=== PATIENT | female | born 2000 | race Caucasian/White ===

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

== ENCOUNTER 2024-07-21 21:25 | Emergency (ER) | payer MEDICAID, SELFPAY ==
[2024-07-21 21:25] VITALS: BP 136/94; PULSE 116; RESP 20; TEMP 36.2; O2SAT 100; BMI 21.8
[2024-07-21 21:47] LABS: Absolute Lymphocyte Count 2.74 X10^3/uL (0.83-4.51); Absolute Neutrophil Count 6.8 X10^3/uL (2.0-7.7); Basophil# 0.06 X10^3/uL; Basophil% 0.6 % (0-1); Eosinophil# 0.12 X10^3/uL; Eosinophils% 1.2 % (0-5); Hematocrit 39.8 % (37-47); Hemoglobin 13.4 g/dL (12.0-15.0); Lymphocyte # 2.74 X10^3/ul (0.83-4.51); Lymphocyte % 26.7 % (19-41); Mean Corp Hgb Conc 33.7 g/dL (32-36); Mean Corpuscular Hgb 30.2 pg (27.0-32.0); Mean Corpuscular Volume 89.6 fL (81-99); Mean Platelet Vol. 8.9 fl (6.2-12.0); Monocyte# 0.51 X10^3/uL; NRBC Flagged by Analyzer 0 % (0-5); Neutrophil # 6.78 X10^3/uL (2.7-7.7); Platelet Count 425 K/mm3 (150-450); RBC Distribution Width CV 11.9 % (11.6-14.6); RBC Distribution Width SD 39.1 fl (35.1-43.9); Red Blood Count 4.44 M/mm3 (4.2-5.4); White Blood Count 10.3 K/mm3 (4.4-11.0)
[2024-07-21 22:00] LABS: Anion Gap 9 (5-15); BUN 6 mg/dL (7-18); BUN/Creat Ratio 9.4 RATIO (10-20); Calcium,Total 9.2 mg/dL (8.5-10.1); Chloride 106 mmol/L (98-107); Creatinine, Serum 0.64 mg/dL (0.55-1.02); EST Glomerular Filtration Rate 124 mL/min (>60); Est Glom Filt Rate - Afr Amer 150 mL/min (>60); Estimated Creatinine Clearance 109.97 ml/min; Glucose 101 mg/dL (74-106); Potassium 3.7 mmol/L (3.5-5.1); Sodium Level 137 mmol/L (136-145)
--- NOTE | 2024-07-21 22:45 | EDS_ITS ---
HPI History of Present Illness Chief Complaint: Dizziness Informant: patient and parent Narrative Narrative: Patient is a 23-year-old female with past medical history of anxiety depression and asthma. She states she started Lexapro today and after taking it began to feel lightheaded and shaky and developed bouts of nausea. She states this is the only new medication introduced into her system and that she denies any type of recently stopped medication to suggest withdrawal. She states that she is waited hours for the symptoms to resolve and they have not done so and therefore she comes to the hospital for evaluation. She states that despite the nausea t here is been no bouts of vomiting and she denies any history of significant bleeding or illicit drug use [facility] Medical History Depression Anxiety Asthma Home Medications ?Medication ?Instructions ?Recorded ?Last Taken ?Type fluticasone propionate 44 2 puff inhalation PRN PRN Sob &/Or 07/01/15 Unknown History mcg/actuation HFA aerosol inhaler Wheezing (Flovent HFA) amoxicillin 500 mg capsule 500 mg PO TID 10 days #30 caps 11/19/21 Unknown Rx fluticasone propionate 50 1 spray intranasal DAILY #16 grams 11/19/21 Unknown Rx mcg/actuation nasal spray,suspension (Flonase Allergy Relief) escitalopram oxalate 10 mg tablet 10 mg PO DAILY 07/21/24 Unknown History ondansetron 4 mg disintegrating 4 mg PO TID PRN nausea and 07/21/24 Unknown Rx tablet vomiting #21 tabs Allergy/AdvReac Type Severity Reaction Status Date / Time No Known Allergies Allergy Verified 07/21/24 21:25 Surgical History History of tonsillectomy and adenoidectomy Social History Smoking Status: Never smoker ROS ROS ED Constitutional Constitutional ED: Denies chills or fever(s) Eyes Eyes: Denies blurry vision or change in vision ENT ENT ED: Denies sore throat Cardiovascular Cardiovascular: Reports palpitations and racing heartbeat; Denies chest pain Respiratory/Chest Respiratory/Chest: Denies cough or dyspnea Gastrointestinal Gastrointestinal: Reports nausea; Denies abdominal pain, diarrhea or vomiting Genitourinary Genitourinary ED: Denies dysuria Musculoskeletal Musculoskeletal: Denies myalgias Integumentary Denies rash Neurologic Neurologic: Reports other Details: Positive dizziness ; Denies headache(s) Psychiatric Psychiatric: Reports anxiety and depression; Denies suicidal ideation or suicidal thoughts Hematologic/Lymphatic Hematologic/Lymphatic: Denies easy bleeding or easy bruising EXAM Physical Exam Const Vital Signs: 07/21/24 21:25 07/21/24 22:59 07/21/24 23:00 Temperature 97.2 F L 97.8 F Temperature Source Temporal Pulse Rate 116 H 89 Respiratory Rate 20 H 16 Blood Pressure 136/94 H 124/79 H Blood Pressure Mean 108 94 Pulse Ox 100 98 98 Oxygen Delivery Method Room Air Room Air Positive well nourished and well developed General Appearance ED: well developed; Negative for pallor HEENT Reports moist mucous membranes HEENT Narrative: Normocephalic atraumatic No signs of infection noted in the posterior pharynx Eyes EOMs intact bilaterally Eyes Narrative: Pupils are dilated and slightly sluggish to respond to light Neck supple Neck Narrative: No nuchal rigidity or meningeal signs Resp normal respiratory effort and clear to auscultation bilaterally Cardio regular rhythm Rate: tachycardic and other Other Details: Slightly tachycardic rate with regular rhythm No murmurs rubs or gallop Radial and carotid pulses are equal and symmetric GI normal to inspection, nondistended, normoactive bowel sounds, non-tender, non- distended and no masses Auscultation: normoactive bowel sounds Palpation: soft Extremity normal to inspection Extremity Narrative: No asymmetric edema no pitting edema negative Homans' sign bilaterally Neuro oriented x3, CN's II-XII intact bilaterally and no sensory deficits noted Neuro Narrative: Cranial nerves II through XII are grossly intact there are no focal neurologic deficits No pronator drift no dysmetria no truncal ataxia No nystagmus noted GCS of 15 NIH stroke scale score of 0 Sensorium / Orientation: alert Motor Exam: strength 5/5 throughout Psych mental status grossly normal Skin no rashes or lesions noted, no wounds and skin turgor normal General Skin Exam: Negative for jaundice or pallor MDM MDM MDM Narrative Medical decision making narrative: Patient arrived to the ER mildly tachycardic and hypertensive but otherwise with stable vitals. She reported taking a new medication of Lexapro today. In order to ensure that her lightheadedness and symptoms are related to adverse medication effect I did elect to perform basic laboratory studies to ensure she did not have acute blood loss anemia acute kidney injury or electrolyte abnormality. Lab work revealed no clinically significant findings and patient was kept on the monitor and her heart rate was normal sinus to sinus tachycardia without true cardiac dysrhythmia. Therefore at this time as she does not have a neurologic event signs of acute blood loss anemia or acute kidney injury and the symptoms she reports are commonly reported with Lexapro I feel they are adverse medication event and she can be discharged home while the drug metabolizes out of her system History & Record Review Discussion w/independent historian: Patient and Family Lab Data Attestation: I reviewed the patient's lab results. Labs: Laboratory Results - last 24 hr 07/21/24 21:40 WBC 10.3 RBC 4.44 Hgb 13.4 Hct 39.8 MCV 89.6 MCH 30.2 MCHC 33.7 RDW Std Deviation 39.1 RDW Coeff of Yoandy 11.9 Plt Count 425 MPV 8.9 Immature Gran % (Auto) 0.500 Neut % (Auto) 66.0 Lymph % (Auto) 26.7 [place] % (Auto) 5.0 Eos % (Auto) 1.2 Baso % (Auto) 0.6 Absolute Neuts (auto) 6.8 Absolute Lymphs (auto) 2.74 Nucleated RBC % 0 Sodium 137 Potassium 3.7 Chloride 106 Carbon Dioxide 22.0 Anion Gap 9 BUN 6 L Creatinine 0.64 Estim Creat Clear Calc 109.97 Est GFR (MDRD) Af Amer 150 Est GFR (MDRD) Non-Af 124 BUN/Creatinine Ratio 9.4 L Glucose 101 Calcium 9.2 Discharge Plan Triage Chief Complaint: Dizziness ED Provider: Tobi Haney Dx/Rx/DC Orders Clinical Impression: Adverse effects of medication, Asthma, Anxiety and depression Instructions: ED Drug Reaction, Other Prescriptions: New ondansetron 4 mg tablet,disintegrating 4 mg PO TID PRN (Reason: nausea and vomiting) Qty: 21 0RF No Action fluticasone propionate [Flovent HFA] 1 INHALER inhaler 2 puff inhalation PRN PRN (Reason: Sob &/Or Wheezing) Patient Comments: amoxicillin 500 mg capsule 500 mg PO TID 10 Days Qty: 30 0RF fluticasone propionate [Flonase Allergy Relief] 50 mcg/actuation spray,suspension 1 spray intranasal DAILY Qty: 16 0RF Rx Instructions: administer into each nostril escitalopram oxalate 10 mg tablet 10 mg PO DAILY Primary Care Provider: Gurjit Vega Referrals: Gurjit Vega MD [Primary Care Provider] - Activity Restrictions/Additional Instructions: Please stop the Lexapro as this is most likely the cause of your dizziness and nausea. It will take on average 2 to 3 days for this drug to metabolize out of your system. Keep yourself well-hydrated and talk to your family doctor about changing medication and return to the ER should you have any further concerns. Print Language: [place] Disposition Disposition: Home, Self Care Discharge Date/Time: 07/21/24 23:08
--- OUTSIDE RECORDS SUMMARY | 2024-07-21 22:47 | XMS RPT_ITS | CCD ---
Author Organization [facility] Inform ion Partnership [employer] [facility] Care Team Providers Care Referral Coordinator Name Role Phone Gurjit Boyer MD Primary Care Provider [phone] Daily Garsia MD Primary Care Provider Podlogar SQUIRT MACHINE OPERATOR.Randal BOSTON Unavailable [phone] LORETTALOGRANDAL COCHRAN Referring Unavailable DAILY GARSIA Primary Care Unavailab le LORETTALOGRANDAL COCHRAN Attending Unavailable GURJIT BOYER Primary Care Unavailable Allergies Allergy Classification Reported Allergen(s) Allergy Type Date of Onset Reaction(s) Facility (9 sources) Cat; Translations: [CATS] Propensity to adverse reactions 0 [facility] (9 sources) Dog; Translations: [DOGS] Allergy to substance 5 Other: See Comments [facility] Work Phone: (9 sources) Seasonal allergy; Translations: [SEASONAL ALLERGIES] Allergy to substance 4 Other: See Comments [facility] Work Phone: Medications Current Medications Medication Drug Class(es) Dates Sig (Normalized) Sig (Original) albuterol 0.83 mg/ml inhalation solution (18 sources) beta2-Adrenergic Agonist Start: 12-04-2019 End: 07-20-2024 take 2 puff(s) by inhalation every four hours as needed ProAir RespiClick 90 mcg/actuation breath activated (albuterol sulfate) Indications: Mild intermittent asthma with acute exacerbation Inhale 2 Puffs as instructed every 4 hours as needed. 1 Each 2 07/20/2024 Active Start: 08-14-2019 End: 07-20-2024 albuterol (PROVENTIL) 2.5 mg /3 mL (0.083 %) nebulizer solution Indications: Mild intermittent asthma with acute exacerbation Use 3 mL via nebulizer every 4 hours as needed. OVER 5-15 MINUTES. FOR WHEEZING AND SHORTNESS OF BREATH. 540 mL 07/20/2024 Active Comment on above: Use 3 mL via nebuliz er every 4 hours as needed. OVER 5-15 MINUTES. FOR WHEEZING AND SHORTNESS OF BREATH. Inhale 2 Puffs as in structed every 4 hours as needed. escitalopram 10 mg oral tablet (1 source) Serotonin Reuptake Inhibitor Start: 07-20-20 24 take 1 tablet by mouth once daily escitalopram oxalate (LEXAPRO) 10 mg tablet Indications: Anxiety and depression Take 1 tablet by mouth once daily. 30 tablet 1 07/20/2024 Active 120 actuat fluticasone propionate 0.11 mg/actuat metered dose inhaler (8 sources) Corticosteroid Start: 07-19-20 20 fluticasone (FLOVENT HFA) 110 mcg/actuation inhaler Inhale 1 puff twice daily. Via spacer then rinse and gargle with water. 1 Inhaler 3 07/19/2020 Active Comment on above: Inhale 1 puff twice daily. Via spacer then rinse and gargle with water. Completed/Discontinued Medications Medication Drug Class(es) Dates Sig (Normalized) Sig (Original) coal tar 5 mg/ml medicated shampoo (4 sources) Start: 9 End: 2 coal tar (NEUTROGENA T-GEL) 0.5 % shampoo Apply 1 application to affected area as needed (for flaky scalp). 237 mL 1 02/27/2019 04/11/2022 Discontinued (Course of therapy completed) Comment on above: Apply 1 application to affected area as needed (for flaky scalp). 1 ml medroxyPROGESTERone acetate 150 mg/ml prefilled syringe (1 source) Progestin Start: 1 End: 2 medroxyPROGESTERone 150 mg injection (DEPO-PROVERA) Problems Active Problems Problem Classification Problem Date Documented Da te Episodic/Chronic Abdominal pain (1 source) Abdominal pain; Translations: [Unspecified abdominal pain] Episodic Anxiety disorders (2 sources) Mixed anxiety and depressive disorder; Translations: [Anxiety disorder, unspecified] Onset: 07-20-2024 07-20-2024 Chronic Asthma (9 sources) Asthma; Translations: [Unspecified asthma, uncomplicated] Onset: 11-17-2011 11-17-2011 Chronic Conditions associated with dizziness or vertigo (1 source) Dizziness; Translations: [Dizziness and giddiness] Episodic Immunizations and screening for infectious disease (4 sources) Viral screening status; Translations: [Encounter for screening for other viral diseases] Onset: 07-20-2024 07-20-2024 Episodic Mood disorders (1 source) Mood disorders; Translations: [Anxiety and depression] Onset: 07-20-2024 Other connective tissue disease (1 source) Pain in right foot; Translations: [Pain in right foot] 08-25-2021 Episodic Other gastrointestinal disorders (2 sources) Alteration in bowel elimination; Translations: [Change in bowel habit] Episodic Other gastrointestinal disorders (1 source) Altered bowel function; Translations: [Change in bowel habit] 04-11-2022 Episodic Other non-traumatic joint disorders (1 source) Joint pain; Translations: [Pain in unspecified joint] 07-20-2024 Episodic Other non-traumatic joint disorders (1 source) Pain in unspecified joint; Translations: [Arthralgia, unspecified joint] Onset: 07-20-2024 Episodic Screening and history of mental health and substance abuse codes (2 sources) Patient encounter status; Translations: [Encounter for screening examination for other mental health and behavioral disorders] 07-20-2024 Episodic Viral infection (1 source) Viral disease; Translations: [Viral infection, unspecified] Episodic Past or Other Problems Problem Classification Problem Date Documented Date Episodic/Chronic Allergic reactions (3 sources) Eczema; Translations: [Dermatitis, unspecified] Resolved: 02-28-2018 02-28-2018 Episodic Lymphadenitis (3 sources) Mesenteric lymphadenitis; Translations: [Nonspecific mesenteric lymphadenitis] Onset: 10-02-2011 Resolved: 11-18-2014 11-18-2014 Episodic Other non-traumatic joint disorders (3 sources) Instability of right patellofemoral joint; Translations: [Other instability, right knee] Onset: 06-08-2016 Resolved: 02-28-2018 02-28-2018 Episodic Results Test Name Value Interpretation Reference Range Facil ity CBC W Auto Differential pane l (Bld)on 07-20-2024 Basophils (Bld) [#/Vol] 0.04 10*3/uL Normal <0.11 [facility] Comment on above: Order Comment: Speci men Type: BLOOD SPECIMEN Ordering Facility: [facility] Address: [address] [place] [address] Performed By: #### 5 7021-8, 4537-7 #### [facility] CLIA [id number] [address] [place] [address] [place] Basophils/100 WBC (Bld) 0.4 % Normal [facility] Comment on above: Order Comment: Speci men Type: BLOOD SPECIMEN Ordering Facility: [facility] Address: [address] [place] [address] Performed By: #### 5 7021-8, 4537-7 #### [facility] CLIA [id number] [address] [place] [address] [place] Differential cell count method Nom (Bld) Auto Normal [facility] Comment on above: Order Comment: Speci men Type: BLOOD SPECIMEN Ordering Facility: [facility] Address: [address] [place] [address] Performed By: #### 5 7021-8, 4537-7 #### [facility] CLIA [id number] [address] [place] [address] [place] Eosinophils (Bld) [#/Vol] 0.17 10*3/uL Normal <0.46 [facility] Comment on above: Order Comment: Speci men Type: BLOOD SPECIMEN Ordering Facility: [facility] Address: [address] [place] [address] Performed By: #### 5 7021-8, 4537-7 #### [facility] CLIA [id number] [address] [place] [address] [place] Eosinophils/100 WBC (Bld) 1.6 % Normal [facility] Comment on above: Order Comment: Speci men Type: BLOOD SPECIMEN Ordering Facility: [facility] Address: [address] [place] [address] Performed By: #### 5 7021-8, 4537-7 #### [facility] CLIA [id number] [address] [place] [address] [place] Erythrocyte distribution width (RBC) [Ratio] 12.3 % Normal 11.5-15.0 [facility] Comment on above: Order Comment: Speci men Type: BLOOD SPECIMEN Ordering Facility: [facility] Address: [address] [place] [address] Performed By: #### 5 7021-8, 4537-7 #### [facility] CLIA [id number] [address] [place] [address] [place] Hematocrit (Bld) [Volume fraction] 40.8 % Normal 36.0-46.0 [facility] Comment on above: Order Comment: Speci men Type: BLOOD SPECIMEN Ordering Facility: [facility] Address: [address] [place] [address] Performed By: #### 5 7021-8, 4537-7 #### [facility] CLIA [id number] [address] [place] [address] [place] Hemoglobin (Bld) [Mass/Vol] 13.1 g/dL Normal 11.5-15.5 [facility] Comment on above: Order Comment: Speci men Type: BLOOD SPECIMEN Ordering Facility: [facility] Address: [address] [place] [address] Performed By: #### 5 7021-8, 4537-7 #### [facility] CLIA [id number] [address] [place] [address] [place] Immature granulocytes (Bld) [#/Vol] 0.05 10*3/uL Normal <0.10 [facility] Comment on above: Order Comment: Speci men Type: BLOOD SPECIMEN Ordering Facility: [facility] Address: [address] [place] [address] Performed By: #### 5 7021-8, 4537-7 #### [facility] CLIA [id number] [address] [place] [address] [place] Immature granulocytes/100 WBC (Bld) 0.5 % Normal [facility] Comment on above: Order Comment: Speci men Type: BLOOD SPECIMEN Ordering Facility: [facility] Address: [address] [place] [address] Performed By: #### 5 7021-8, 4536-7 #### [facility] CLIA [id number] [address] [place] [address] [place] Lymphocytes (Bld) [#/Vol] 2.17 10*3/uL Normal 1.00-4.00 [facility] Comment on above: Order Comment: Speci men Type: BLOOD SPECIMEN Ordering Facility: [facility] Address: [address] [place] [address] Performed By: #### 5 7021-8, 4536-7 #### [facility] CLIA [id number] [address] [place] [address] [place] Lymphocytes/100 WBC (Bld) 20.6 % Normal [facility] Comment on above: Order Comment: Speci men Type: BLOOD SPECIMEN Ordering Facility: [facility] Address: [address] [place] [address] Performed By: #### 5 7021-8, 7-7 #### [facility] CLIA [id number] [address] [place] [address] [place] MCH (RBC) [Entitic mass] 30.1 pg Normal 26.0-34.0 [facility] Comment on above: Order Comment: Speci men Type: BLOOD SPECIMEN Ordering Facility: [facility] Address: [address] [place] [address] Performed By: #### 5 7021-8, 4537-7 #### [facility] CLIA [id number] [address] [place] [address] [place] MCHC (RBC) [Mass/Vol] 32.1 g/dL Normal 30.5-36.0 [facility] Comment on above: Order Comment: Speci men Type: BLOOD SPECIMEN Ordering Facility: [facility] Address: [address] [place] [address] Performed By: #### 5 7021-8, 4537-7 #### [facility] CLIA [id number] [address] [place] [address] [place] MCV (RBC) [Entitic vol] 93.8 fL Normal 80.0-100.0 [facility] Comment on above: Order Comment: Speci men Type: BLOOD SPECIMEN Ordering Facility: [facility] Address: [address] [place] [address] Performed By: #### 5 7021-8, 4537-7 #### [facility] CLIA [id number] [address] [place] [address] [place] Monocytes (Bld) [#/Vol] 0.71 10*3/uL Normal <0.87 [facility] Comment on above: Order Comment: Speci men Type: BLOOD SPECIMEN Ordering Facility: [facility] Address: [address] [place] [address] Performed By: #### 5 7021-8, 4536-7 #### [facility] CLIA [id number] [address] [place] [address] [place] Monocytes/100 WBC (Bld) 6.7 % Normal [facility] Comment on above: Order Comment: Speci men Type: BLOOD SPECIMEN Ordering Facility: [facility] Address: [address] [place] [address] Performed By: #### 5 7021-8, 4537-7 #### [facility] CLIA [id number] [address] [place] [address] [place] Neutrophils (Bld) [#/Vol] 7.40 10*3/uL Normal 1.45-7.50 [facility] Comment on above: Order Comment: Speci men Type: BLOOD SPECIMEN Ordering Facility: [facility] Address: [address] [place] [address] Performed By: #### 5 7021-8, 4537-7 #### [facility] CLIA [id number] [address] [place] [address] [place] Neutrophils/100 WBC (Bld) 70.2 % Normal [facility] Comment on above: Order Comment: Speci men Type: BLOOD SPECIMEN Ordering Facility: [facility] Address: [address] [place] [address] Performed By: #### 5 7021-8, 453-7 #### [facility] CLIA [id number] [address] [place] [address] [place] Nucleated RBC (Bld) [#/Vol] 10*3/uL Normal <0.01 [facility] Comment on above: Order Comment: Speci men Type: BLOOD SPECIMEN Ordering Facility: [facility] Address: [address] [place] [address] Performed By: #### 5 7021-8, 4537-7 #### [facility] CLIA [id number] [address] [place] [address] [place] Nucleated RBC/100 WBC (Bld) [Ratio] 0.0 /100 WBC Normal [facility] Comment on above: Order Comment: Speci men Type: BLOOD SPECIMEN Ordering Facility: [facility] Address: [address] [place] [address] Performed By: #### 5 7021-8, 4537-7 #### [facility] CLIA [id number] [address] [place] [address] [place] Platelet mean volume (Bld) [Entitic vol] 9.7 fL Normal 9.0-12.7 [facility] Comment on above: Order Comment: Speci men Type: BLOOD SPECIMEN Ordering Facility: [facility] Address: [address] [place] [address] Performed By: #### 5 7021-8, 4537-7 #### [facility] CLIA [id number] [address] [place] [address] [place] Platelets (Bld) [#/Vol] 415 10*3/uL High 150-400 [facility] Comment on above: Order Comment: Speci men Type: BLOOD SPECIMEN Ordering Facility: [facility] Address: [address] [place] [address] Performed By: #### 5 7021-8, 4537-7 #### [facility] CLIA [id number] [address] [place] [address] [place] RBC (Bld) [#/Vol] 4.35 10*6/uL Normal 3.90-5.20 [facility] Comment on above: Order Comment: Speci men Type: BLOOD SPECIMEN Ordering Facility: [facility] Address: [address] [place] [address] Performed By: #### 5 7021-8, 4537-7 #### [facility] CLIA [id number] [address] [place] [address] [place] WBC (Bld) [#/Vol] 10.54 10*3/uL Normal 3.70-11.00 [facility] Comment on above: Order Comment: Speci men Type: BLOOD SPECIMEN Ordering Facility: [facility] Address: [address] [place] [address] Performed By: #### 5 7021-8, 4537-7 #### [facility] CLIA [id number] [address] [place] [address] [place] CNOVon 07-20-2024 CNOV Office Visit (FAMPWS) SUSHIL SANCHEZ ([id number]) 4 F Date Time Provider Department 07/20/24 2:00 PM RANDAL JACKSON During your visit today, we recorded the following information about you: Pulse Respiration Blood pressure Weight 98/minute 18/minute 122/74 53.5 kg Height 1.56 m LorettalogRandal cochran APRN.DIRECTOR COMPLIANCE 07/20/2024 3:29 PM Signed 07/20/2024 Patient presents with: Establish Care SUBJECTIVE: This is a 23 year old, accompanied by grandmother, that is here today for Above Complaints. Asthma: uses grandfather rescue inhaler about 1-2 times a week. Denies SOB, dyspnea, wheezing or coughing. Has not had asthma flare since childhood. Admits to depressive symptoms and anxiety. Took something in the past but upset her stomach so she stopped. Wakes up frequently through the night and has a hard time falling back asleep. Admits to panic attacks when she has to be around other people. Has never went to counseling. Denies SI or HI PHQ9: 16 THONG: 17 Reports a lot of joint pain and at times gets welts on elbow. Reports her hands swell at times. Mother has RA. Past medical, surgical, family, social hx, medications, allergies and health maintenance reviewed and updated PAST MEDICAL HISTORY Diagnosis Date Asthma Eczema Menarche aged 12 yrs Patellar instability of right knee PMH - PAST MEDICAL HISTORY OF hole in lung @ -resolved on it's own ALLERGIES Cats, Dogs, and Seasonal Allergies MEDICATIONS Current Outpatient Medications Medication Sig fluticasone (FLOVENT HFA) 110 mcg/actuation inhaler Inhale 1 puff twice daily. Via spacer then rinse and gargle with water. albuterol sulfate (PROAIR RESPICLICK) 90 mcg/actuation Inhale 2 Puffs as instructed every 4 hours as needed. albuterol (PROVENTIL) 2.5 mg /3 mL (0.083 %) nebulizer solution Use 3 mL via nebulizer every 4 hours as needed. OVER 5-15 MINUTES. FOR WHEEZING AND SHORTNESS OF BREATH. No current facility-administere d medications for this visit. Medications and allergies reviewed by this provider. SOCIAL HISTORY Social History Tobacco Use Smoking status: Passive Smoke Exposure - Never Smoker Smokeless tobacco: Never Tobacco comments: Smokers go outside Substance Use Topics Alcohol use: No Drug use: No REVIEW OF SYSTEMS GENERAL: No weight loss, malaise or fevers HEENT: No changes in hearing or vision, no nose bleeds or other nasal problems NECK: Negative for lumps, goiter, pain and significant neck swelling RESPIRATORY: Negative for cough, hemoptysis, wheezing, COPD, dyspnea or shortness of breath CARDIOVASCULAR: Negative for chest pain, leg swelling, hypertension, CHF or palpitations GI: No nausea, vomiting, or diarrhea and Nauseated at times : No history of dysuria, frequency or incontinence [employer] OFFICER: Negative for abnormal vaginal bleeding, abnormal vaginal discharge MUSCULOSKELETAL: See HPI SKIN: See HPI PSYCH: See HPI HEMATOLOGY/LYMPHOLOG Y: Negative for prolonged bleeding, or swollen nodes ENDOCRINE: Negative for cold or heat intolerance, polyuria, polydipsia and goiter NEURO: No history of syncope, paralysis, seizures or tremors All other reviewed and negative other than HPI. OBJECTIVE: BP 122/74 Pulse 98 Resp 18 Ht 156 cm (5' 1.42 ) Wt 53.5 kg (117 lb 15.1 oz) LMP 07/28/2020 SpO2 97% BMI 21.98 kg/m? . Vital signs reviewed by this provider. APPEARANCE Well appearing, alert, in no acute distress, well-hydrated, well nourished. EYES conjunctiva and sclera normal. EARS External ears normal, canals clear NECK Supple, no adenopathy; thyroid symmetric, normal size, no bruits HEART RRR with normal S1 and S2, no murmurs, no gallops, no JVD appreciated LUNG clear to auscultation. No wheezes, rhonchi or rales ABDOMEN bowel sounds normoactive, no bruits, soft, non-tender, non-distended EXTREMITIES Extremities normal, No deformities, No skin discoloration, and No edema SKIN Skin color, texture, turgor normal, no suspicious rashes or lesions to exposed skin PSYCH: Posture and motor behavior: normal posture and motor behavior Dress, grooming, personal hygiene: normal dress and grooming Facial expression: good eye contact Speech: normal speech Mood: cheerful Coherency and relevance of thought: normal thought processes Memory: normal memory Meningococcal B Vaccine: Consider Based On Risk(1 of 2 - Patient Seeks Protection) Never done Spirometry Never done GC (Gonorrhea) Screening (18-24) Never done Depression Screening Never done Anxiety Screening Never done Hepatitis C Screening Never done HIV Screening Never done Asthma Action Plan due on 07/19/2022 Cervical Cancer Screening Never done Influenza Vaccine(1) due on 05/24/2024 Covid-19 Vaccine(2023- season) due on 05/24/2024 DTaP,Tdap,Td Vaccine(7 - Td or Tdap) due on 2024 Chlamydia Screening (18 (more content not included)... Normal [facility] Cyclic citrullinated peptide IgG Qnon 07-20-2024 CCP ANTIBODY IGG QUALITATIVE Negative Normal Negative [facility] Comment on above: Order Comment: Speci men Type: BLOOD SPECIMEN Ordering Facility: [facility] Address: [address] [place] [address] Performed By: #### 3 3935-8 #### [facility] CLIA [id number] [address] [place] [address] [place] ESR Westergren method (Bld) [Velocity]on 07-20-2024 ESR (Bld) [Velocity] 2 mm/h Normal 0-20 [facility] Comment on above: Order Comment: Speci men Type: BLOOD SPECIMEN Ordering Facility: [facility] Address: [address] [place] [address] Performed By: #### 5 7021-8, 4537-7 #### [facility] CLIA [id number] [address] [place] [address] [place] HCV Ab Ser Qlon 07-20-2024 HCV Ab Ql (S) Negative Normal Negative [facility] Comment on above: Order Comment: Speci men Type: BLOOD SPECIMEN Ordering Facility: [facility] Address: [address] [place] [address] Result Comment: The result suggests no evidence of active infection with Hepatitis C virus. Should recent infection be suspected, repeat testing may be considered 4-6 weeks after this draw. Performed By: #### 1 6128-1 #### [facility] CLIA [id number] [address] [place] [address] [place] HIV 1+2 Ab IA Qlon 4 HIV 1 and 2 Ab IA.rapid Nom (S/P/Bld) Normal [facility] Comment on above: Order Comment: Speci men Type: BLOOD SPECIMEN Ordering Facility: [facility] Address: [address] [place] [address] Result Comment: Test not indicated. Performed By: #### 3 1201-7 #### [facility] CLIA [id number] [address] [place] [address] [place] HIV 1+2 Ab+HIV1 p24 Ag IA Ql Non-Reactive Normal Nonreactive [facility] Comment on above: Order Comment: Speci men Type: BLOOD SPECIMEN Ordering Facility: [facility] Address: [address] [place] [address] Performed By: #### 3 1201-7 #### [facility] CLIA [id number] [address] [place] [address] [place] HIV immunoassay testing algorithm interpretation (S/P/Bld) [Interp] Normal [facility] Comment on above: Order Comment: Speci men Type: BLOOD SPECIMEN Ordering Facility: [facility] Address: [address] [place] [address] Result Comment: No e vidence of HIV-1 or HIV-2 infection. Should recent infection be suspected, repeat testing may be considered 2-3 weeks after this draw. [place] Rev. Code 3701.243(E): This information has been disclosed to you from confidential records protected from disclosure by state law. ???You shall make no further disclosure of this information without the specific, written, and informed release of the individual to whom it pertains or as otherwise permitted by state law. A general authorization for the release of medical or other information is not sufficient for the purpose of the release of HIV test results or diagnoses. Performed By: #### 3 1201-7 #### [facility] CLIA [id number] [address] [place] cCP IgG SerPl-aCncon 10-28-2 024 Cyclic citrullinated peptide IgG Qn <15 Normal <20 [facility] Comment on above: Order Comment: Speci men Type: BLOOD SPECIMEN Ordering Facility: [facility] Address: [address] [place] [address] Performed By: #### 3 3935-8 #### [facility] CLIA [id number] [address] [place] [address] [place] AMYLASE BLDon 04-13-2022 Amylase [Catalytic activity/Vol] 38 U/L 30 - 104 U/L [facility] CBC W Auto Differential pane l (Bld)on 04-13-2022 Abs Immature Gran 0.03 k/uL <0.10 k/uL [facility] Basophils (Bld) [#/Vol] 0.05 10*3/uL <0.11 k/uL [facility] Basophils/100 WBC (Bld) 0.7 % [facility] Differential cell count method Nom (Bld) Auto [facility] Eosinophils (Bld) [#/Vol] 0.38 10*3/uL <0.46 k/uL [facility] Eosinophils/100 WBC (Bld) 5.6 % [facility] Erythrocyte distribution width (RBC) [Ratio] 12.5 % 11.5 - 15.0 % [facility] Hematocrit (Bld) [Volume fraction] 40.9 % 36.0 - 46.0 % [facility] Hemoglobin (Bld) [Mass/Vol] 13.2 g/dL 11.5 - 15.5 g/dL [facility] Immature Gran % 0.4 % [facility] Lymphocytes (Bld) [#/Vol] 2.37 10*3/uL 1.00 - 4.00 k/uL [facility] Lymphocytes/100 WBC (Bld) 35.1 % [facility] MCH (RBC) [Entitic mass] 29.4 pg 26.0 - 34.0 pg [facility] MCHC (RBC) [Mass/Vol] 32.3 g/dL 30.5 - 36.0 g/dL [facility] MCV (RBC) [Entitic vol] 91.1 fL 80.0 - 100.0 fL [facility] Monocytes (Bld) [#/Vol] 0.55 10*3/uL <0.87 k/uL [facility] Monocytes/100 WBC (Bld) 8.1 % [facility] Neutrophils (Bld) [#/Vol] 3.37 10*3/uL 1.45 - 7.50 k/uL [facility] Neutrophils/100 WBC (Bld) 50.1 % [facility] Nucleated RBC (Bld) [#/Vol] 10*3/uL <0.01 k/uL [facility] Nucleated RBC/100 WBC (Bld) [Ratio] 0.0 /100 WBC [facility] Platelet mean volume (Bld) [Entitic vol] 9.6 fL 9.0 - 12.7 fL [facility] Platelets (Bld) [#/Vol] 443 10*3/uL High 150 - 400 k/uL [facility] RBC (Bld) [#/Vol] 4.49 10*6/uL 3.90 - 5.20 m/uL [facility] WBC (Bld) [#/Vol] 6.75 10*3/uL 3.70 - 11. 00 k/uL [facility] Comprehensive metabolic 2000 panelon 04-13-2022 Albumin [Mass/Vol] 5.0 g/dL High 3.9 - 4.9 g/dL [facility] ALP [Catalytic activity/Vol] 69 U/L 34 - 123 U/L [facility] ALT [Catalytic activity/Vol] 8 U/L 7 - 38 U/L [facility] Anion gap [Moles/Vol] 10 mmol/L 9 - 18 mmol/L [facility] AST [Catalytic activity/Vol] 13 U/L 13 - 35 U/L [facility] Bilirubin [Mass/Vol] 0.5 mg/dL 0.2 - 1.3 mg/dL [facility] Calcium [Mass/Vol] 10.1 mg/dL 8.5 - 10.2 mg/dL [facility] Chloride [Moles/Vol] 104 mmol/L 97 - 105 mmol/L [facility] CO2 [Moles/Vol] 24 mmol/L 22 - 30 mmol/L [facility] Creatinine [Mass/Vol] 0.65 mg/dL 0.58 - 0.96 mg/dL [facility] Estimated Glomerular Filtration Rate 130 mL/min/1.73m >=60 mL/min/1.73m [facility] Glucose [Mass/Vol] 98 mg/dL 74 - 99 mg/dL [facility] Potassium [Moles/Vol] 3.9 mmol/L 3.7 - 5.1 mmol/L [facility] Protein [Mass/Vol] 7.5 g/dL 6.3 - 8.0 g/dL [facility] Sodium [Moles/Vol] 138 mmol/L 136 - 144 mmol/L [facility] Urea nitrogen [Mass/Vol] 7 mg/dL 7 - 21 mg/dL [facility] LIPASE [facility] 04-13-2022 Lipase [Catalytic activity/Vol] 24 U/L 16 - 61 U/L [facility] T4 FREE/FREE THYROXon 2021 Free T4 [Mass/Vol] 1.5 ng/dL 0.9 - 1.7 ng/dL C [facility] TSH [facility] 04-13-2022 TSH Qn 2.130 m[IU]/L 0.510 - 4.300 mIU/L [facility] XR ABDOMEN 1V SUPINEon 04-11 [facility] XR Abdomen Supine and Uprigh ton 04-11-2022 IMPRESSION: No dilated bowel. No significant colonic stool burden. No pathologic calcifications. IMPRESSION: Nonobstructive bowel gas pattern. Cook Candy: NIKOLE Transcribe Date/Time: Apr 11 2022 5:25P Dictated by : ROS STEIN DO This examination was interpreted and the report reviewed and electronically signed by: ROS STEIN DO on Apr 11 2022 5:27PM EST JACK_DO_NOT_USE _DIVISION OF RADIOLOGY * * *Final Report* * * DATE OF EXAM: Apr 11 2022 5:18PM WOX 5289 - XR ABDOMEN 1V SUPINE / PROCEDURE REASON: Change in bowel habits * * * * Physician Interpretation * * * * EXAMINATION: XR ABDOMEN 1V SUPINE PATIENT/TECHNOLOGIST PROVIDED HISTORY: constipation, gas, abdominal pain CLINICAL INFORMATION: 21 years old Female with Change in bowel habits COMPARISON: None TECHNIQUE: Single supine view. 2 image(s) JACK_DO_NOT_USE _DIVISION OF RADIOLOGY Provider, [facility] [place] - 04/11/2022 * * *Final Report* * * DATE OF EXAM: Apr 11 2022 5:18PM WOX 5289 - XR ABDOMEN 1V SUPINE / PROCEDURE REASON: Change in bowel habits * * * * Physician Interpretation * * * * EXAMINATION: XR ABDOMEN 1V SUPINE PATIENT/TECHNOLOGIST PROVIDED HISTORY: constipation, gas, abdominal pain CLINICAL INFORMATION: 21 years old Female with Change in bowel habits COMPARISON: None TECHNIQUE: Single supine view. 2 image(s) IMPRESSION IMPRESSION: No dilated bowel. No significant colonic stool burden. No pathologic calcifications. IMPRESSION: Nonobstructive bowel gas pattern. Cook Candy: NIKOLE Transcribe Date/Time: Apr 11 2022 5:25P Dictated by : ROS STEIN DO This examination was interpreted and the report reviewed and electronically signed by: ROS STEIN DO on Apr 11 2022 5:27PM EST [facility] Radiology Study observation (narrative) [facility] XR Abdomen Supine and Uprigh tOrdered By: [facility] Provider on 04-11-2022 [facility] XR Foot - right AP and Later al and obliqueon 08-25-2021 * * *Final Report* * * DATE OF EXAM: Aug 25 2021 10:45AM WOX 5337 - XR FOOT 3V AP/LAT/OBL RT / PROCEDURE REASON: Foot pain, right * * * * Physician Interpretation * * * * Indication: Right foot pain Comparison: None AP, lateral and oblique views of the right foot are obtained. There is normal architecture and mineralization of the bones. There is no acute fracture or dislocation. Joint spaces are maintained. Impression: 1. No acute fracture or dislocation. Cook Candy: [facility] Transcribe Date/Time: Aug 25 2021 11:08A Dictated by : TIMO JOHNSON MD This examination was interpreted and the report reviewed and electronically signed by: TIMO JOHNSON MD on Aug 25 2021 11:10AM [facility] DIVISION OF RADIOLOGY Provider, [facility] [place] - 08/25/2021 * * *Final Report* * * DATE OF EXAM: Aug 25 2021 10:45AM WOX 5337 - XR FOOT 3V AP/LAT/OBL RT / PROCEDURE REASON: Foot pain, right * * * * Physician Interpretation * * * * Indication: Right foot pain Comparison: None AP, lateral and oblique views of the right foot are obtained. There is normal architecture and mineralization of the bones. There is no acute fracture or dislocation. Joint spaces are maintained. Impression: 1. No acute fracture or dislocation. Cook Candy: NIKOLE Transcribe Date/Time: Aug 25 2021 11:08A Dictated by : TIMO JOHNSON MD This examination was interpreted and the report reviewed and electronically signed by: TIMO JOHNSON MD on Aug 25 2021 11:10AM EST [facility] Radiology Study observation (narrative) [facility] XR Foot - right AP and Later al and obliqueOrdered By: [facility] Provider on 08-25-2021 [facility] Vital Signs Date Time Vital Sign Value Performing Clinician Faci lity 07-20-2024 14:03-0400 Body height 156 cm Randal Podlogar SQUIRT MACHINE OPERATOR.DIRECTOR COMPLIANCE Work Phone: [facility] 07-20-2024 14:03-0400 Body mass index (BMI) [Ratio] 21.98 kg/m2 Randal Podlogar SQUIRT MACHINE OPERATOR.DIRECTOR COMPLIANCE Work Phone: [facility] 07-20-2024 14:03-0400 Body weight 53.5 kg Arndal Podlogar SQUIRT MACHINE OPERATOR.DIRECTOR COMPLIANCE Work Phone: [facility] 07-20-2024 14:03-0400 Diastolic blood pressure 74 mm[Hg] Randal Podlogar SQUIRT MACHINE OPERATOR.DIRECTOR COMPLIANCE Work Phone: [facility] 07-20-2024 14:03-0400 Heart rate 98 /min Randal Podlogar SQUIRT MACHINE OPERATOR.DIRECTOR COMPLIANCE Work Phone: [facility] 07-20-2024 14:03-0400 Respiratory rate 18 /min Randal Podlogar SQUIRT MACHINE OPERATOR.DIRECTOR COMPLIANCE Work Phone: [facility] 07-20-2024 14:03-0400 SaO2% (BldA) [Mass fraction] 97 % Randal Podlogar SQUIRT MACHINE OPERATOR.DIRECTOR COMPLIANCE Work Phone: [facility] 07-20-2024 14:03-0400 Systolic blood pressure 122 mm[Hg] Randal Podlogar SQUIRT MACHINE OPERATOR.DIRECTOR COMPLIANCE Work Phone: [facility] 04-13-2022 14:48-0400 Body temperature 98.49 [degF] Emi Davis PA-C Work Phone: [facility] 04-13-2022 14:48-0400 Body weight 57.7 kg Emi Davis PA-C Work Phone: [facility] 04-13-2022 14:48-0400 Heart rate 104 /min Emi Davis PA-C Work Phone: [facility] 04-13-2022 14:48-0400 Respiratory rate 16 /min Emi Davis PA-C Work Phone: [facility] 04-11-2022 16:28-0400 Body temperature 99.19 [degF] Saeed Ryder MD Work Phone: [facility] 04-11-2022 16:28-0400 Body weight 58.15 kg Saeed Ryder MD Work Phone: [facility] 04-11-2022 16:28-0400 Diastolic blood pressure 78 mm[Hg] Saeed Ryder MD Work Phone: [facility] 04-11-2022 16:28-0400 Heart rate 96 /min Saeed Ryder MD Work Phone: [facility] 04-11-2022 16:28-0400 Respiratory rate 20 /min Saeed Ryder MD Work Phone: [facility] 04-11-2022 16:28-0400 SaO2% (BldA) [Mass fraction] 99 % Saeed Ryder MD Work Phone: [facility] 04-11-2022 16:28-0400 Systolic blood pressure 122 mm[Hg] Saeed Ryder MD Work Phone: [facility] 03-29-2022 14:40-0400 Body temperature 98.2 [degF] Rakesh Geiger APRN.DIRECTOR COMPLIANCE Work Phone: [facility] 03-29-2022 14:40-0400 Body weight 58.24 kg Rakeshswetha Slademamta SQUIRT MACHINE OPERATOR.DIRECTOR COMPLIANCE Work Phone: [facility] 03-29-2022 14:40-0400 Diastolic blood pressure 80 mm[Hg] Rakesh Slademamta SQUIRT MACHINE OPERATOR.DIRECTOR COMPLIANCE Work Phone: [facility] 03-29-2022 14:40-0400 Heart rate 92 /min Rakesh Berlinmamta SQUIRT MACHINE OPERATOR.DIRECTOR COMPLIANCE Work Phone: [facility] 03-29-2022 14:40-0400 Respiratory rate 18 /min Rakeshswetha Slademamta SQUIRT MACHINE OPERATOR.DIRECTOR COMPLIANCE Work Phone: [facility] 03-29-2022 14:40-0400 SaO2% (BldA) [Mass fraction] 99 % Rakesh Slademamta SQUIRT MACHINE OPERATOR.DIRECTOR COMPLIANCE Work Phone: [facility] 03-29-2022 14:40-0400 Systolic blood pressure 122 mm[Hg] Rakesh Slademamta SQUIRT MACHINE OPERATOR.DIRECTOR COMPLIANCE Work Phone: [facility] Encounters Encounter Date Encounter Type Care Provider Facility Start: 07-20-2024 Encounter for genera l adult medical examination without abnormal findings RANDAL JACKSON [facility] Start: 07-20-2024 End: 07-20-2024 Patient encounter procedure Randal Jackson APRN.DIRECTOR COMPLIANCE Work Phone: [facility] Comment on above: Encounter for medica l examination to establish care (Primary Dx); Mild intermittent asthma with acute exacerbation; Anxiety and depression; Arthralgia, unspecified joint; Special screening examination for viral disease; Screening for HIV (human immunodeficiency virus); Encounter for screening examination for other mental health and behavioral disorders; Screening for depression Start: 07-20-2024 End: 07-20-2024 Patient encounter status Randal Jackson APRN.DIRECTOR COMPLIANCE Work Phone: [facility] Start: 07-20-2024 End: 07-20-2024 ambulatory RANDAL JACKSON Facility:[facility] Start: 04-24-2022 Telephone encounter Emi De La Cruz PA-C Work Phone: [facility] [place] Comment on above: Results Start: 04-13-2022 End: 04-13-2022 Patient encounter procedure Emi Davis PA-C Work Phone: [facility] Comment on above: Abdominal pain, unsp ecified abdominal location (Primary Dx); Bowel habit changes Start: 04-11-2022 End: 04-11-2022 Subsequent hospital visit by physician Xr [facility] [place] Work Phone: Radiology Comment on above: Change in bowel habi ts [R19.4] Start: 04-11-2022 End: 04-11-2022 Patient encounter procedure Saeed Ryder MD Work Phone: [facility] Comment on above: Change in bowel habi ts (Primary Dx) Start: 03-29-2022 End: 03-29-2022 Patient encounter procedure Rakesh Geiger APRN.DIRECTOR COMPLIANCE Work Phone: [facility] Comment on above: Viral illness (Prima ry Dx); Dizziness Start: 03-19-2022 ambulatory Valencia Ulloa RN [facility] Start: 03-19-2022 Follow-up encounter Valencia Ulloa RN [facility] [place] Comment on above: Asthma (Breathe Well Follow up) Start: 08-25-2021 End: 08-25-2021 Subsequent hospital visit by physician Xr [facility] [place] Work Phone: Radiology Comment on above: Foot pain, right [M7 9.671] Procedures Date Procedure Procedure Detail Performing Clinician Start: 07-20-2024 Adult depression screening assessment Randal Jackson APRN.DIRECTOR COMPLIANCE Work Phone: Start: 04-12-2022 Adult depression screening assessment Emi Davis PA-C Work Phone: Start: 04-11-2022 Radiologic exam abdo men 1 view Saeed Ryder MD Work Phone: Start: 04-11-2022 Adult depression screening assessment Saeed Ryder MD Work Phone: Start: 08-25-2021 Radex foot complete minimum 3 views Gisselle Cook APRN.DIRECTOR COMPLIANCE Work Phone: Start: 01-17-2021 Adult depression screening assessment Rakesh Geiger APRN.DIRECTOR COMPLIANCE Work Phone: Plan of Treatment Date Care Activity Detail Author Start: 07-20-2025 Annual PCP Team [employer] Teacher genesis Disease Visit Annual PCP Team Chronic Disease Visit [facility] Start: 07-20-2025 Anxiety Screening Anxiety Screening [facility] Start: 07-20-2025 Asthma Control Test Asthma Control T est [facility] Start: 07-20-2025 Depression Screening Depression Scre ening [facility] Start: 07-20-2025 Screening for Chlamy shaun trachomatis Chlamydia Screening (18-24) [facility] Comment on above: Postponed from 08/02 (Declined at this time) Start: 08-19-2024 End: 08-19-2024 Patient encounter procedure 08/19/2024 12:20 PM EST Office Visit [facility] [address], [place] [id number] PodlogarRandal APRN.DIRECTOR COMPLIANCE [address] [place] [address] 1 month follow up Family [facility] Comment on above: 1 month follow up Start: 2024 Urine microalbumin profile [facility] Start: 07-20-2024 End: 10-19-2024 C reactive protein [Mass/volume] in Serum or Plasma [facility] Comment on above: Expected: 07/20/2024 , Expires: 10/19/2024 Start: 07-20-2024 End: 10-19-2024 CBC W Auto Differential panel - Blood [facility] Comment on above: Expected: 07/20/2024 , Expires: 10/19/2024 Start: 07-20-2024 End: 10-19-2024 Comprehensive metabolic 2000 panel - Serum or Plasma [facility] Work Phone: Comment on above: Expected: 07/20/2024 , Expires: 10/19/2024 Start: 07-20-2024 End: 10-19-2024 Cyclic citrullinated peptide IgG Ab [Units/volume] in Serum or Plasma [facility] Comment on above: Expected: 07/20/2024 , Expires: 10/19/2024 Start: 07-20-2024 End: 10-19-2024 Erythrocyte sedimentation rate [facility] Comment on above: Expected: 07/20/2024 , Expires: 10/19/2024 Start: 07-20-2024 End: 10-19-2024 Hepatitis C virus Ab [Presence] in Serum [facility] Comment on above: Expected: 07/20/2024 , Expires: 10/19/2024 Start: 07-20-2024 End: 10-19-2024 HIV 1+2 Ab [Presence] in Serum or Plasma by Immunoassay [facility] Comment on above: Expected: 07/20/2024 , Expires: 10/19/2024 Start: 07-20-2024 End: 07-20-2024 Patient encounter procedure 07/20/2024 2:00 PM EDT Office Visit [facility] [address], [place] [id number] PodlogarRandal APRN.DIRECTOR COMPLIANCE [address] [place], [place] [id number] est care [facility] [place] Comment on above: est care Start: 07-20-2024 End: 10-19-2024 Rheumatoid factor [Units/volume] in Serum or Plasma [facility] Comment on above: Expected: 07/20/2024 , Expires: 10/19/2024 Start: 07-20-2024 End: 10-19-2024 Thyrotropin [Units/volume] in Serum or Plasma [facility] Comment on above: Expected: 07/20/2024 , Expires: 10/19/2024 Start: 05-24-2024 Covid-19 Vaccine ( season) Covid-19 Vaccine () [facility] Start: 05-24-2024 Influenza vaccination Influenza Vacc ine (#1) [facility] Start: 2023 Screening for malign ant neoplasm of cervix Cervical Cancer Screening [facility] Start: 04-13-2023 ANNUAL PCP TEAM DRIVER TRAINER GENESIS DISEASE VISIT ANNUAL PCP TEAM CHRONIC DISEASE VISIT [facility] Start: 04-12-2023 Adult depression screening assessment DEPRESSION SCREENING [facility] Start: 04-11-2023 Adult depression screening assessment DEPRESSION SCREENING [facility] Start: 07-19-2022 ASTHMA ACTION PLAN ASTHMA ACTION AFSHIN N [facility] Start: 05-24-2022 Influenza vaccination INFLUENZA (#1) [facility] Start: 03-28-2022 ANNUAL PCP TEAM DRIVER TRAINER GENESIS DISEASE VISIT ANNUAL PCP TEAM CHRONIC DISEASE VISIT [facility] Start: 01-17-2022 Adult depression screening assessment DEPRESSION SCREENING [facility] Start: 11-09-2021 COVID-19 VACCINE (3 - Booster for Pfizer series) COVID-19 VACCINE (3 - Booster for Pfizer series) [facility] Start: 07-19-2021 ASTHMA CONTROL TEST ASTHMA CONTROL T EST [facility] Start: 2020 Anxiety Screening Anxiety Screening [facility] Start: 2020 CHLAMYDIA SCREENING (1824) CHLAMYDIA SCREENING (18-24) [facility] Start: 2020 Depression Screening Depression Scre ening [facility] Start: 2020 GC (GONORRHEA) SCREE KELECHI (18-24) GC (GONORRHEA) SCREENING (18-24) [facility] Start: 2020 HEPATITIS C SCREENING HEPATITIS C [facility] Start: 2020 Hepatitis C screening Hepatitis C [facility] Start: 2020 HIV SCREENING HIV SCREENING [facility] Start: 2020 HIV screening HIV Screening [facility] Start: 2020 Screening for Chlamy shaun trachomatis Chlamydia Screening (18) [facility] Start: 2020 SPIROMETRY SPIROMETRY [facility] Start: 2018 Meningococcal B Vacc ine: Consider Based On Risk (1 of 2 - Patient Seeks Protection) Meningococcal B Vaccine: Consider Based On Risk (1 of 2 - Patient Seeks Protection) [facility] Start: 2016 PEDS TO ADULT TRANSI TION ANNUAL ASSESSMENT PEDS TO ADULT TRANSITION ANNUAL ASSESSMENT [facility] Start: 2014 PEDS TO ADULT TRANSI TION INITIAL DISCUSSION PEDS TO ADULT TRANSITION INITIAL DISCUSSION [facility] Start: 2012 MENINGOCOCCAL B: Consider based on risk (1 of 2 - Risk Bexsero 2-dose series) MENINGOCOCCAL B: Consider based on risk (1 of 2 - Risk Bexsero 2-dose series) [facility] Start: 2008 PNEUMOCOCCAL (1 - PCV) PNEUMOCOCCAL (1 - PCV) [facility] Calprotectin [Mass/m ass] in Stool CALPROTECTIN,FECAL Lab Routine Abdominal pain, unspecified abdominal location Bowel habit changes Ordered: 04/13/2022 [facility] Work Phone: Comment on above: Ordered: 04/13/2022 Influenza virus A an d B RNA and SARS-CoV-2 (COVID-19) N gene panel - Respiratory specimen by VESTA with probe detection COVID WITH FLUA+B, ROUTINE Microbiology Routine Viral illness 03/29/2022 2:59 PM EDT [facility] Work Phone: [facility] Immunizations Immunization Date Immunization Notes Care Provider Tyler mckay 12-05-2018 meningococcal polysaccharide (groups A, C, Y and W-135) diphtheria toxoid conjugate vaccine (MCV4P) Rakesh Pendjamey SQUIRT MACHINE OPERATOR.[facility] Work Phone: [facility] 04-28-2015 human papilloma viru s vaccine, quadrivalent Rakesh Pendlebury SQUIRT MACHINE OPERATOR.[facility] Work Phone: [facility] Work Phone: 2014 human papilloma viru s vaccine, quadrivalent Rakesh Pendlebury SQUIRT MACHINE OPERATOR.[facility] Work Phone: [facility] Work Phone: 2014 influenza, injectabl e, quadrivalent, preservative free Rakesh Pendlebury SQUIRT MACHINE OPERATOR.[facility] Work Phone: [facility] Work Phone: 2014 meningococcal polysaccharide (groups A, C, Y and W-135) diphtheria toxoid conjugate vaccine (MCV4P) Rakesh Geiger SQUIRT MACHINE OPERATOR.[facility] Work Phone: [facility] Work Phone: 2014 tetanus toxoid, redu ayse diphtheria toxoid, and acellular pertussis vaccine, adsorbed Rakesh Pendlebury SQUIRT MACHINE OPERATOR.[facility] Work Phone: [facility] Work Phone: 2014 influenza virus vacc ine, unspecified formulation Xr [facility] Work Phone: [facility] 05-22-2008 diphtheria, tetanus toxoids and acellular pertussis vaccine Rakesh Geiger SQUIRT MACHINE OPERATOR.DIRECTOR COMPLIANCE Work Phone: [facility] [place] Work Phone: 05-22-2008 measles, mumps and rubella virus vaccine Rakesh Geiger SQUIRT MACHINE OPERATOR.DIRECTOR COMPLIANCE Work Phone: [facility] [place] Work Phone: 05-22-2008 poliovirus vaccine, inactivated Rakesh Geiger SQUIRT MACHINE OPERATOR.DIRECTOR COMPLIANCE Work Phone: [facility] [place] Work Phone: 05-22-2008 varicella virus vaccine Jens swetha Fely SQUIRT MACHINE OPERATOR.DIRECTOR COMPLIANCE Work Phone: [facility] [place] Work Phone: 07-26-2006 influenza virus vacc ine, unspecified formulation Rakesh Geiger SQUIRT MACHINE OPERATOR.DIRECTOR COMPLIANCE Work Phone: [facility] [place] Work Phone: 12-17-2003 diphtheria, tetanus toxoids and acellular pertussis vaccine Rakeshswetha Geiger SQUIRT MACHINE OPERATOR.[facility] Work Phone: [facility] [place] Work Phone: 12-17-2003 haemophilus influenz ae type b vaccine, HbOC conjugate Rakesh Geiger SQUIRT MACHINE OPERATOR.[facility] Work Phone: [facility] [place] Work Phone: 2003 influenza virus vacc ine, unspecified formulation Rakesh Geiger SQUIRT MACHINE OPERATOR.DIRECTOR COMPLIANCE Work Phone: [facility] [place] Work Phone: 2003 measles, mumps and rubella virus vaccine Rakesh Geiger SQUIRT MACHINE OPERATOR.DIRECTOR COMPLIANCE Work Phone: [facility] [place] Work Phone: 2003 varicella virus vaccine Jens swetha Geiger SQUIRT MACHINE OPERATOR.DIRECTOR COMPLIANCE Work Phone: [facility] [place] Work Phone: 02-05-2003 diphtheria, tetanus toxoids and acellular pertussis vaccine [facility] SQUIRT MACHINE OPERATOR.DIRECTOR COMPLIANCE Work Phone: [facility] [place] Work Phone: 02-05-2003 haemophilus influenz ae type b conjugate and Hepatitis B vaccine [facility] SQUIRT MACHINE OPERATOR.DIRECTOR COMPLIANCE Work Phone: [facility] [place] Work Phone: 02-05-2003 poliovirus vaccine, inactivated [facility] SQUIRT MACHINE OPERATOR.DIRECTOR COMPLIANCE Work Phone: [facility] [place] 2002 diphtheria, tetanus toxoids and acellular pertussis vaccine [facility] SQUIRT MACHINE OPERATOR.[facility] Work Phone: [facility] [place] Work Phone: 2002 haemophilus influenz ae type b vaccine, HbOC conjugate [facility] SQUIRT MACHINE OPERATOR.[facility] Work Phone: [facility] [place] Work Phone: 2002 pneumococcal conjuga te vaccine, 7 valent [facility] SQUIRT MACHINE OPERATOR.[facility] Work Phone: [facility] [place] Work Phone: 2002 poliovirus vaccine, inactivated [facility] SQUIRT MACHINE OPERATOR.DIRECTOR COMPLIANCE Work Phone: [facility] [place] 2002 diphtheria, tetanus toxoids and acellular pertussis vaccine [facility] SQUIRT MACHINE OPERATOR.[facility] Work Phone: [facility] [place] Work Phone: 2002 haemophilus influenz ae type b conjugate and Hepatitis B vaccine [facility] SQUIRT MACHINE OPERATOR.DIRECTOR COMPLIANCE Work Phone: [facility] [place] Work Phone: 2002 pneumococcal conjuga te vaccine, 7 valent [facility] SQUIRT MACHINE OPERATOR.DIRECTOR COMPLIANCE Work Phone: [facility] [place] Work Phone: 2002 poliovirus vaccine, inactivated Rakesh [facility] SQUIRT MACHINE OPERATOR.DIRECTOR COMPLIANCE Work Phone: [facility] [place] 2002 hepatitis B vaccine, pediatric or pediatric/adolescent dosage Rakesh Geiger APRN.[facility] Work Phone: [facility] [place] Work Phone: Payers Date Payer Category Payer Medicaid [id number] 2013 Medicaid [facility] MEDICAID [id number] 2013-Present [phone] [address] [place] [address] Medicaid [id number] 2013 Medicaid [id number] Social History Date Type Detail Facility Start: 05-18-2011 End: 07-20-2024 Tobacco smoking status NHIS Never smoked tobacco [facility] [place] Start: 05-18-2011 End: 07-20-2024 Tobacco use and exposure Smokeless tobacco non-user [facility] [place] Start: 08-25-2021 End: 03-29-2022 Alcohol intake Current non-drinker of alcohol (finding) [facility] [place] Start: 02-21-2010 End: 07-20-2024 Tobacco Comment Smokers go outside [facility] [place] Start: 2002 Sex Assigned At Not on file C [facility] Start: 07-26-2021 End: 04-11-2022 Exposure to SARS-CoV-2 (event) Not sure [facility] [place] Work Phone: Start: 04-10-2022 End: 04-13-2022 History SDOH Alcohol Frequency 1 [facility] [place] Start: 04-10-2022 History SDOH Alcohol Std Drinks 98 [facility] [place] Start: 04-10-2022 End: 04-13-2022 History SDOH Social Connections Phone 2 [facility] [place] Start: 04-10-2022 History SDOH Social Connections Living 7 [facility] [place] Start: 04-10-2022 History SDOH Physica l Activity DPW 0 [facility] [place] Start: 04-10-2022 History SDOH Financial 3 [facility] [place] History of tobacco use Passive smoker [facility] Work Phone: Start: 04-09-2022 End: 07-18-2024 History of Social function [facility] [place] Start: 04-09-2022 End: 07-18-2024 Social connection and isolation panel [facility] [place] Do you belong to any clubs or organizations such as jainism groups, unions, fraternal or athletic groups, or school groups? No [facility] [place] Are you now , , , , never or living with a partner? Never [facility] [place] How often to you hav e a drink containing alcohol? Never [facility] [place] How many standard dr inks containing alcohol do you have on a typical day? Patient declined [facility] [place] How hard is it for y ou to pay for the very basics like food, housing, medical care, and heating Somewhat hard [facility] [place] Do you feel stress - tense, restless, nervous, or anxious, or unable to sleep at night because your mind is troubled all the time - these days [OSQ] Only a little [facility] [place] (I/We) worried [facility] (my/our) food would run out before (I/we) got money to buy more. Sometimes true [facility] [place] In the past 12 month s, was there a time when you were not able to pay the mortgage or rent on time? Yes [facility] [place] Start: 07-20-2024 Alcoholic beverage intake Curr ent drinker of alcohol (finding) [facility] [place] Do you feel stress - tense, restless, nervous, or anxious, or unable to sleep at night because your mind is troubled all the time - these days [OSQ] Very much [facility] [place] Start: 07-20-2024 Alcohol Comment occasioanl [facility] Clinical Notes 06-08-2016 to 07-20-2024 Patient InstructionsPoRandal sr APRN.DIRECTOR COMPLIANCE - 07/20/2024 1:51 PM EDTTelephone Encounter - Emi Davis PA-C - 05/08/2022 10:01 AM EDTTelephone Encounter - Joni Reilly RN - 04/24/2022 12:50 PM EDT Note Date & Type Note Facility 07-20-2024 Instructions LorettalogRandal cochran APRN.DIRECTOR COMPLIANCE - 07/20/2024 2:22 PM EDT [facility] - [facility] Therapy/Counseling and Medication Management Services [facility] [address] [place] [address] [facility] [address] [place] [address] [facility] [address] [place] [address] [facility] [address] [place], [place] [address] [facility] [address] [place], [place] [id number] [facility], [address] documented in this encounter [facility] [place] 07-20-2024 Note HNO ID: [id number] Author: RANDAL JACKSON APRN.DIRECTOR COMPLIANCE Service: ? Author Type: Nurse Practitioner Type: Progress Notes Filed: 07/20/2024 15:29 Note Text: 07/20/2024 Patient presents with: Establish Care SUBJECTIVE: This is a 23 year old, accompanied by grandmother, that is here today for Above Complaints. Asthma: uses grandfather rescue inhaler about 1-2 times a week. Denies SOB, dyspnea, wheezing or coughing. Has not had asthma flare since childhood. Admits to depressive symptoms and anxiety. Took something in the past but upset her stomach so she stopped. Wakes up frequently through the night and has a hard time falling back asleep. Admits to panic attacks when she has to be around other people. Has never went to counseling. Denies SI or HI PHQ9: 16 THONG: 17 Reports a lot of joint pain and at times gets welts on elbow. Reports her hands swell at times. Mother has RA. Past medical, surgical, family, social hx, medications, allergies and health maintenance reviewed and updated PAST MEDICAL HISTORY Diagnosis Date Asthma Eczema Menarche aged 12 yrs Patellar instability of right knee PMH - PAST MEDICAL HISTORY OF hole in lung @ -resolved on it's own ALLERGIES Cats, Dogs, and Seasonal Allergies MEDICATIONS Current Outpatient Medications Medication Sig fluticasone (FLOVENT HFA) 110 mcg/actuation inhaler Inhale 1 puff twice daily. Via spacer then rinse and gargle with water. albuterol sulfate (PROAIR RESPICLICK) 90 mcg/actuation Inhale 2 Puffs as instructed every 4 hours as needed. albuterol (PROVENTIL) 2.5 mg /3 mL (0.083 %) nebulizer solution Use 3 mL via nebulizer every 4 hours as needed. OVER 5-15 MINUTES. FOR WHEEZING AND SHORTNESS OF BREATH. No current facility-administered medications for this visit. Medications and allergies reviewed by this provider. SOCIAL HISTORY Social History Tobacco Use Smoking status: Passive Smoke Exposure - Never Smoker Smokeless tobacco: Never Tobacco comments: Smokers go outside Substance Use Topics Alcohol use: No Drug use: No REVIEW OF SYSTEMS GENERAL: No weight loss, malaise or fevers HEENT: No changes in hearing or vision, no nose bleeds or other nasal problems NECK: Negative for lumps, goiter, pain and significant neck swelling RESPIRATORY: Negative for cough, hemoptysis, wheezing, COPD, dyspnea or shortness of breath CARDIOVASCULAR: Negative for chest pain, leg swelling, hypertension, CHF or palpitations GI: No nausea, vomiting, or diarrhea and Nauseated at times : No history of dysuria, frequency or incontinence [employer] ASSEMBLY OFFICER: Negative for abnormal vaginal bleeding, abnormal vaginal discharge MUSCULOSKELETAL: See HPI SKIN: See HPI PSYCH: See HPI HEMATOLOGY/LYMPHOLOGY: Negative for prolonged bleeding, or swollen nodes ENDOCRINE: Negative for cold or heat intolerance, polyuria, polydipsia and goiter NEURO: No history of syncope, paralysis, seizures or tremors All other reviewed and negative other than HPI. OBJECTIVE: BP 122/74 Pulse 98 Resp 18 Ht 156 cm (5' 1.42 ) Wt 53.5 kg (117 lb 15.1 oz) LMP 07/28/2020 SpO2 97% BMI 21.98 kg/m? . Vital signs reviewed by this provider. APPEARANCE Well appearing, alert, in no acute distress, well-hydrated, well nourished. EYES conjunctiva and sclera normal. EARS External ears normal, canals clear NECK Supple, no adenopathy; thyroid symmetric, normal size, no bruits HEART RRR with normal S1 and S2, no murmurs, no gallops, no JVD appreciated LUNG clear to auscultation. No wheezes, rhonchi or rales ABDOMEN bowel sounds normoactive, no bruits, soft, non-tender, non-distended EXTREMITIES Extremities normal, No deformities, No skin discoloration, and No edema SKIN Skin color, texture, turgor normal, no suspicious rashes or lesions to exposed skin PSYCH: Posture and motor behavior: normal posture and motor behavior Dress, grooming, personal hygiene: normal dress and grooming Facial expression: good eye contact Speech: normal speech Mood: cheerful Coherency and relevance of thought: normal thought processes Memory: normal memory Meningococcal B Vaccine: Consider Based On Risk(1 of 2 - Patient Seeks Protection) Never done Spirometry Never done GC (Gonorrhea) Screening (18-24) Never done Depression Screening Never done Anxiety Screening Never done Hepatitis C Screening Never done HIV Screening Never done Asthma Action Plan due on 07/19/2022 Cervical Cancer Screening Never done Influenza Vaccine(1) due on 05/24/2024 Covid-19 Vaccine( - 2023- season) due on 05/24/2024 DTaP,Tdap,Td Vaccine(7 - Td or Tdap) due on 2024 Chlamydia Screening (18-24) due on 07/20/2025 Annual PCP Team Chronic Disease Visit due on 07/20/2025 Asthma Control Test due on 07/20/2025 Hepatitis B Vaccine Completed HPV Vaccine Completed ASSESSMENT/PLAN: 1. Encounter for medical examination to establish care - ICD9: V70.9, ICD10: (more content not included)... [facility] 07-20-2024 History of Present illness Narrative 07/20/2024 Patient presents with: Establish Care SUBJECTIVE: This is a 23 year old, accompanied by grandmother, that is here today for Above Complaints. Asthma: uses grandfather rescue inhaler about 1-2 times a week. Denies SOB, dyspnea, wheezing or coughing. Has not had asthma flare since childhood. Admits to depressive symptoms and anxiety. Took something in the past but upset her stomach so she stopped. Wakes up frequently through the night and has a hard time falling back asleep. Admits to panic attacks when she has to be around other people. Has never went to counseling. Denies SI or HI PHQ9: 16 THONG: 17 Reports a lot of joint pain and at times gets welts on elbow. Reports her hands swell at times. Mother has RA. Past medical, surgical, family, social hx, medications, allergies and health maintenance reviewed and updated PAST MEDICAL HISTORY Diagnosis Date Asthma Eczema Menarche aged 12 yrs Patellar instability of right knee PMH - PAST MEDICAL HISTORY OF hole in lung @ -resolved on it's own ALLERGIES Cats, Dogs, and Seasonal Allergies MEDICATIONS Current Outpatient Medications Medication Sig fluticasone (FLOVENT HFA) 110 mcg/actuation inhaler Inhale 1 puff twice daily. Via spacer then rinse and gargle with water. albuterol sulfate (PROAIR RESPICLICK) 90 mcg/actuation Inhale 2 Puffs as instructed every 4 hours as needed. albuterol (PROVENTIL) 2.5 mg /3 mL (0.083 %) nebulizer solution Use 3 mL via nebulizer every 4 hours as needed. OVER 5-15 MINUTES. FOR WHEEZING AND SHORTNESS OF BREATH. No current facility-administered medications for this visit. Medications and allergies reviewed by this provider. SOCIAL HISTORY Social History Tobacco Use Smoking status: Passive Smoke Exposure - Never Smoker Smokeless tobacco: Never Tobacco comments: Smokers go outside Substance Use Topics Alcohol use: No Drug use: No REVIEW OF SYSTEMS GENERAL: No weight loss, malaise or fevers HEENT: No changes in hearing or vision, no nose bleeds or other nasal problems NECK: Negative for lumps, goiter, pain and significant neck swelling RESPIRATORY: Negative for cough, hemoptysis, wheezing, COPD, dyspnea or shortness of breath CARDIOVASCULAR: Negative for chest pain, leg swelling, hypertension, CHF or palpitations GI: No nausea, vomiting, or diarrhea and Nauseated at times : No history of dysuria, frequency or incontinence [employer] ASSEMBLY OFFICER: Negative for abnormal vaginal bleeding, abnormal vaginal discharge MUSCULOSKELETAL: See HPI SKIN: See HPI PSYCH: See HPI HEMATOLOGY/LYMPHOLOGY: Negative for prolonged bleeding, or swollen nodes ENDOCRINE: Negative for cold or heat intolerance, polyuria, polydipsia and goiter NEURO: No history of syncope, paralysis, seizures or tremors All other reviewed and negative other than HPI. OBJECTIVE: BP 122/74 Pulse 98 Resp 18 Ht 156 cm (5' 1.42 ) Wt 53.5 kg (117 lb 15.1 oz) LMP 07/28/2020 SpO2 97% BMI 21.98 kg/m . Vital signs reviewed by this provider. APPEARANCE Well appearing, alert, in no acute distress, well-hydrated, well nourished. EYES conjunctiva and sclera normal. EARS External ears normal, canals clear NECK Supple, no adenopathy; thyroid symmetric, normal size, no bruits HEART RRR with normal S1 and S2, no murmurs, no gallops, no JVD appreciated LUNG clear to auscultation. No wheezes, rhonchi or rales ABDOMEN bowel sounds normoactive, no bruits, soft, non-tender, non-distended EXTREMITIES Extremities normal, No deformities, No skin discoloration, and No edema SKIN Skin color, texture, turgor normal, no suspicious rashes or lesions to exposed skin PSYCH: Posture and motor behavior: normal posture and motor behavior Dress, grooming, personal hygiene: normal dress and grooming Facial expression: good eye contact Speech: normal speech Mood: cheerful Coherency and relevance of thought: normal thought processes Memory: normal memory Meningococcal B Vaccine: Consider Based On Risk(1 of 2 - Patient Seeks Protection) Never done Spirometry Never done GC (Gonorrhea) Screening (18-24) Never done Depression Screening Never done Anxiety Screening Never done Hepatitis C Screening Never done HIV Screening Never done Asthma Action Plan due on 07/19/2022 Cervical Cancer Screening Never done Influenza Vaccine(1) due on 05/24/2024 Covid-19 Vaccine( - 2023- season) due on 05/24/2024 DTaP,Tdap,Td Vaccine(7 - Td or Tdap) due on 2024 Chlamydia Screening (18-24) due on 07/20/2025 Annual PCP Team Chronic Disease Visit due on 07/20/2025 Asthma Control Test due on 07/20/2025 Hepatitis B Vaccine Completed HPV Vaccine Completed ASSESSMENT/PLAN: 1. Encounter for medical examination to establish care - ICD9: V70.9, ICD10: Z00.00 (primary diagnosis) - Counseled on healthy diet and regular exercise - Follow up for annual exam in one year - COMPREHENSIVE METABOLIC PANEL - COMPLETE BLOOD COUNT AND DIFFERENTIAL 2. Mild intermittent asthma with acute exacerbation - ICD9: 493.92, ICD10: J45.21 - Mild intermittent asthma stable - Continue current medications - Avoidance of triggers recommended - Follow up in 1 year, sooner should any other issues arise. - ALBUTEROL SULFATE 2.5 MG/3 ML (0.083 %) SOLUTION FOR NEBULIZATION - PROAIR RESPICLICK 90 MCG/ACTUATION BREATH ACTIVATED 3. Anxiety and depression - ICD9: 300.00, 311, ICD10: F41.9, F32.A - Discussed concept of neurochemical imbalance [facility] depression/anxiety - Option of Medication use discussed - Risks/benefits of SSRIs - Common side effects - Sleep Hygeine - advised counseling to improve management of stressors - Instructed patient to contact office or [id number] after-hours promptly should condition worsen or any new symptoms appear. - Counseling Center [facility] and after hours crisis line - [facility]'s [place] phone number or - handout of local counseling agencies provided - ESCITALOPRAM 10 MG TABLET - THYROID STIMULATING HORMONE - follow-up in one month, sooner if needed 4. Arthralgia, unspecified joint - ICD9: 719.40, ICD10: M25.50 - SEDIMENTATION RATE, WESTERGREN - C-REACTIVE PROTEIN - RHEUMATOID FACTOR - CCP ANTIBODY IGG 5. Special screening examination for viral disease - ICD9: V73.99, ICD10: Z11.59 - HEPATITIS C ANTIBODY IA WITH CONFIRMATION 6. Screening for HIV (human immunodeficiency virus) - ICD9: V73.89, ICD10: Z11.4 - HIV 1/2 COMBO WITH REFLEX TO DIFFERENTIATION 7. Encounter for screening examination for other mental health and behavioral disorders - ICD9: V79.8, ICD10: Z13.39 - ANXIETY SCREENING 8. Screening for depression - ICD9: V79.0, ICD10: Z13.31 - DEPRESSION SCREENING Randal Jackson APRN.CNP Prescription instructions reviewed with patient as applicable. Patient advised if symptoms do not improve or if symptoms worsen sooner, to contact their primary care physician. Potential red flag symptoms discussed with the patient. Reviewed appropriate action plan to take if red flag symptoms occur. Patient agreeable to treatment plan. Medical Decision Making: Problems: Low: Stable chronic illness Moderate: New problem with uncertain prognosis Data: Unique test(s) ordered: 3+ Risk: Moderate: Drug management and Moderate risk from testing/treatment Medical Decision Making Level: 4 - Moderate documented in this encounter [facility] [place] 05-08-2022 Miscellaneous Notes Update noted. Patient with GI appointment scheduled for 05/22/22. Closing encounter. Emi Davis PA-C Mom was notified of advice and/or results. Pt states she is still having the symptoms. Abdominal pain feels like constipation, but 1-2 times a week pt will have diarrhea. Gasey and not having daily stools. Left message to call our office. Joni Reilly RN Please let family know results of stool study were borderline. Repeat advised in 4 - 6 weeks; however, patient with GI appointment scheduled. Will defer to their recommendations at that time. Please also obtain patient update. Thank you. Emi Davis PA-C documented in this encounter [facility] [place] 04-13-2022 History of Present illness Narrative PEDIATRIC SICK VISIT SERVICE DATE: 04/13/2022 SUBJECTIVE: Sushil Sanchez is a 21 year old female accompanied by mother for evaluation of bowel issues. Patient states problems first started to occur around March 26. Seen in UC on 03/29/22 where she was diagnosed with viral illness. COVID/flu negative. Diarrhea and abdominal discomfort persisted so she presented to UC again on 04/11/22. KUB normal. GI referral placed. Patient with appointment scheduled for 05/22/22. Patient describes stomach pain as cramping. Pain is occasionally epigastric, other times lower abdomen. Reports increased gas and fecal urgency. Once able to stool, gets 10 - 15 minutes pain relief before it returns again. Denies fever and vomiting. Reports nausea. Correlation with certain food: No Regurgitation: No Bloody or mucus stools: No Bloody or bilious vomit: No Recent travel: No Recent antibiotic use: No Camping: No Contact with zoo/farm animals or reptiles: No Familly history of: - Constipation: No - GERD: Yes - mother - Lactose Intolerance: No - Celiac: No - Crohns, UC: No - IBS: No Any additional pertinent family history: No History was obtained from: patient Modifying factors attempted: Stopped eating dairy (milk, ice cream) without relief Imodium (did not help) Sick contacts: No known sick contacts. HISTORY: ACTIVE PROBLEM LIST Asthma PAST MEDICAL HISTORY Diagnosis Date Asthma Eczema Menarche aged 12 yrs Patellar instability of right knee PMH - PAST MEDICAL HISTORY OF hole in lung @ -resolved on it's own PAST SURGICAL HISTORY Procedure Laterality Date ADENOIDECTOMY HX 12/2010 Dr. Ramírez PAST SURGICAL HISTORY OF cyst removal under tongue TONSILLECTOMY HX 12/2010 Dr. Ramírez TOOTH EXTRACTION 2019 wisdom teeth Allergies: ALLERGIES Allergen Reactions Cats Dogs Other: See Comments Seasonal Allergies Other: See Comments Tree, Grass pollen Spring, Summer, Fall Medications: fluticasone (FLOVENT HFA) 110 mcg/actuation inhaler Inhale 1 puff twice daily. Via spacer then rinse and gargle with water. albuterol sulfate (PROAIR RESPICLICK) 90 mcg/actuation Inhale 2 Puffs as instructed every 4 hours as needed. albuterol (PROVENTIL) 2.5 mg /3 mL (0.083 %) nebulizer solution Use 3 mL via nebulizer every 4 hours as needed. OVER 5-15 MINUTES. FOR WHEEZING AND SHORTNESS OF BREATH. REVIEW OF SYSTEMS: As above, otherwise negative OBJECTIVE: Pulse 104 Temp 36.9 C (98.5 F) (Temporal) Resp 16 Wt 57.7 kg (127 lb 3.2 oz) LMP 07/28/2020 General: alert and active in no apparent distress Eyes: conjunctiva clear Neck: supple, no adenopathy Lungs: clear to auscultation bilaterally, good air exchange, no retractions CVS: Normal rate, regular rhythm, no murmur Abdomen: soft, nondistended, mild suprapubic tenderness, no hepatosplenomegaly or masses, no rebound or guarding, bowel sounds normal Skin: No rashes, lesions or skin changes ASSESSMENT/PLAN: Encounter Diagnosis ICD-10-CM 1. Abdominal pain, unspecified abdominal location R10.9 CBC + DIFF COMP METABOLIC PANEL CALPROTECTIN,FECAL TSH BLD T4 FREE/FREE THYROX AMYLASE BLD LIPASE BLD 2. Bowel habit changes R19.4 CBC + DIFF COMP METABOLIC PANEL CALPROTECTIN,FECAL TSH BLD T4 FREE/FREE THYROX AMYLASE BLD LIPASE BLD - Discussed differential with mother and patient (post-infectious GI changes vs IBS) - Lab work ordered - Discussed the potential benefit of low FODMAP diet. Supplemental handout provided - Discussed briefly anxiety with patient. Supplemental counseling packet provided. Advised scheduling separate appointment to discuss anxiety more in deptth - All questions answered - Follow up dependent upon lab results Medical Decision Making: Problems: Moderate: New problem with uncertain prognosis Data: Unique source(s) for external note(s) reviewed: 1 Unique test result(s) reviewed: 1 Unique test(s) ordered: 3+ Medical Decision Making Level: 4 - Moderate SIGNATURE: Emi Davis PA-C PATIENT NAME: Sushil Sanchez DATE: April 13, 2022 TIME: 2:52 PM documented in this encounter [facility] 04-11-2022 History of Present illness Narrative Patient presents with: Diarrhea: nausea, constipation, indigestion x3 weeks intermittent HPI: Abdominal issues for 3 weeks. Seen here 2 weeks ago for fever, diarrhea, and near syncope. Resolved dizziness resolved and has not returned. Her bowel habits have not returned to normal. She is moving her bowels once or twice a week (previously daily). She strains for extended periods without being able to move her bowels. Her BM can be diarrhea or hard stool when she is able to go. Positive symptoms: increased gas (eructation and flatulence), alternating diarrhea and constipation, nausea, crampy pain with loud gurgling, decreased appetite/intake, Negative symptoms: Fever, melena, hematochezia, vomiting, OTC: imodium No recent travel or sick contacts. Denies past issues with irritable bowel. No known FHx IBS or IBD. LMP ~03/06/22 and was normal. Denies any risk of . She has increased stress because of her bowel issues but denies life stress increase apart from that. PAST MEDICAL HISTORY Diagnosis Date Asthma Eczema Menarche aged 12 yrs Patellar instability of right knee PMH - PAST MEDICAL HISTORY OF hole in lung @ -resolved on it's own PAST SURGICAL HISTORY Procedure Laterality Date ADENOIDECTOMY HX 12/2010 Dr. Ramírez PAST SURGICAL HISTORY OF cyst removal under tongue TONSILLECTOMY HX 12/2010 Dr. Ramírez TOOTH EXTRACTION 2019 wisdom teeth MEDICATIONS: Current Outpatient Medications Medication Sig fluticasone (FLOVENT HFA) 110 mcg/actuation inhaler Inhale 1 puff twice daily. Via spacer then rinse and gargle with water. albuterol sulfate (PROAIR RESPICLICK) 90 mcg/actuation Inhale 2 Puffs as instructed every 4 hours as needed. albuterol (PROVENTIL) 2.5 mg /3 mL (0.083 %) nebulizer solution Use 3 mL via nebulizer every 4 hours as needed. OVER 5-15 MINUTES. FOR WHEEZING AND SHORTNESS OF BREATH. coal tar (NEUTROGENA T-GEL) 0.5 % shampoo Apply 1 application to affected area as needed (for flaky scalp). (Patient not taking: Reported on 03/29/2022 ) No current facility-administered medications for this visit. ALLERGIES: ALLERGIES Allergen Reactions Cats Dogs Other: See Comments Seasonal Allergies Other: See Comments Tree, Grass pollen Spring, Summer, Fall VITALS: BP 122/78 Pulse 96 Temp 37.3 C (99.2 F) Resp 20 Wt 58.2 kg (128 lb 3.2 oz) LMP 07/28/2020 SpO2 99% Last 4 Encounter Wt Readings: Date: Wt: 04/11/2022 58.2 kg (128 lb 3.2 oz) (51 %, Z= 0.01)* 03/29/2022 58.2 kg (128 lb 6.4 oz) (51 %, Z= 0.03)* 08/25/2021 62 kg (136 lb 9.6 oz) (67 %, Z= 0.44)* 03/28/2021 62.4 kg (137 lb 8 oz) (70 %, Z= 0.52)* PHYSICAL EXAM: GEN: Pleasant, in no acute distress. HEENT: PERRL, EOMI, conjunctiva clear Throat: moist mucous membranes Neck: supple, no thyromegaly, no lymphadenopathy HEART: regular rate and rhythm, no murmurs LUNGS: clear to auscultation, no wheezes or crackles, no increased WOB ABD: Soft, non-distended, non-tender, aorta is palpable, suspected stool in sigmoid. ASSESSMENT/PLAN: 1. Change in bowel habits - ICD9: 787.99, ICD10: R19.4 - XR ABDOMEN 1V SUPINE - no significant abnormality. No signs of obstruction or stool impaction. Differential includes IBS, IBD, food intolerance/allergy, post-infectious changes, decreased stool output from poor intake. Resume solid intake. - CONSULT TO GASTROENTEROLOGY Saeed Ryder MD documented in this encounter [facility] 04-03-2022 History of Present illness Narrative Patient has been scheduled for this appt. 1st attempt unable to leave a message to schedule [facility] Asthma Home Monitoring Program [facility] Outreach Chart Reviewed for B[facility]he Well-Pt overdue for [facility]/ACT. AAP due 07/19/22. Will route to schedulers. Patient is currently not eligible for Pediatric [facility] Asthma Home Monitoring Program. Patient is not followed by specialty care for asthma. Has not had a prednisone course in the last 6 months. Has not had an admission or ED visit for asthma in the last 12 months. No obvious SDH. Reason for outreach: chart review Contact made: No contact at this time. SIGNATURE: Valencia Ulloa RN PATIENT NAME: Sushil Sanchez DATE: March 19, 2022 TIME: 3:19 PM documented in this encounter [facility] 03-29-2022 History of Present illness Narrative Subjective HPI Nontoxic-appearing female presents urgent care chief complaint diarrhea low-grade temperature and lightheadedness. Duration of diarrhea and fever 4 days. Duration of lightheadedness today. Patient states 3-4 loose stools today. No blood in stools. States she had multiple near syncopal episodes today. Caregiver states patient was in the kitchen when she almost passed out twice . States she had to grab onto the counter or she would have fell to the floor. States she has multiple episodes where her vision becomes very black. This has since improved. Denies any known sick contacts. Denies any OTC medication use. Denies any pain. Past medical history prescription medication use allergies were reviewed. .Patient presents with: Diarrhea: diarrhea, lightheaded, dizzy and fever x 4 days PAST MEDICAL HISTORY Diagnosis Date Asthma Eczema Menarche aged 12 yrs Patellar instability of right knee PMH - PAST MEDICAL HISTORY OF hole in lung @ -resolved on it's own PAST SURGICAL HISTORY Procedure Laterality Date ADENOIDECTOMY HX 12/2010 Dr. Ramírez PAST SURGICAL HISTORY OF cyst removal under tongue TONSILLECTOMY HX 12/2010 Dr. Ramírez TOOTH EXTRACTION 2019 wisdom teeth ALLERGIES Cats, Dogs, and Seasonal Allergies MEDICATIONS albuterol sulfate (PROAIR RESPICLICK) 90 mcg/actuation Inhale 2 Puffs as instructed every 4 hours as needed. albuterol (PROVENTIL) 2.5 mg /3 mL (0.083 %) nebulizer solution Use 3 mL via nebulizer every 4 hours as needed. OVER 5-15 MINUTES. FOR WHEEZING AND SHORTNESS OF BREATH. fluticasone (FLOVENT HFA) 110 mcg/actuation inhaler Inhale 1 puff twice daily. Via spacer then rinse and gargle with water. coal tar (NEUTROGENA T-GEL) 0.5 % shampoo Apply 1 application to affected area as needed (for flaky scalp). FAMILY HISTORY Problem Relation Age of Onset other (Unknown) Paternal Grandmother other (Unknown) Paternal Grandfather None Mother None Father Hypertension Maternal Grandmother Diabetes Maternal Grandmother Hypertension Maternal Grandfather Thyroid Maternal Grandfather None Brother None Brother None Sister Social History Tobacco Use Smoking status: Passive Smoke Exposure - Never Smoker Smokeless tobacco: Never Used Tobacco comment: Smokers go outside Substance Use Topics Alcohol use: No Drug use: No BP 122/80 Pulse 92 Temp 36.8 C (98.2 F) (Axillary) Resp 18 Wt 58.2 kg (128 lb 6.4 oz) LMP 07/28/2020 SpO2 99% Review of Systems Constitutional: Positive for chills, fever and malaise/fatigue. HENT: Negative for congestion, ear discharge, ear pain, sinus pain and sore throat. Eyes: Negative for blurred vision, pain, discharge and redness. Respiratory: Negative for cough, hemoptysis, sputum production, shortness of breath, wheezing and stridor. Cardiovascular: Negative for chest pain. Gastrointestinal: Positive for abdominal pain and diarrhea. Negative for nausea and vomiting. Musculoskeletal: Negative for myalgias. Skin: Negative for itching and rash. Neurological: Positive for dizziness and headaches. Objective Physical Exam Constitutional: General: She is not in acute distress. Appearance: She is not diaphoretic. HENT: Head: Normocephalic. Mouth/Throat: Mouth: Mucous membranes are moist. Pharynx: Oropharynx is clear. No oropharyngeal exudate or posterior oropharyngeal erythema. Eyes: Conjunctiva/sclera: Conjunctivae normal. Pupils: Pupils are equal, round, and reactive to light. Cardiovascular: Rate and Rhythm: Normal rate and regular rhythm. Heart sounds: Normal heart sounds. Pulmonary: Effort: Pulmonary effort is normal. No tachypnea, accessory muscle usage or respiratory distress. Breath sounds: Normal breath sounds. No stridor. Abdominal: General: Bowel sounds are normal. Palpations: Abdomen is soft. Tenderness: There is no abdominal tenderness. There is no right CVA tenderness, left CVA tenderness, guarding or rebound. Musculoskeletal: Cervical back: Normal range of motion and neck supple. No rigidity or tenderness. Lymphadenopathy: Cervical: No cervical adenopathy. Skin: General: Skin is warm and dry. Neurological: General: No focal deficit present. Mental Status: She is alert and oriented to person, place, and time. Mental status is at baseline. ASSESSMENT/PLAN: 1. Viral illness - ICD9: 079.99, ICD10: B34.9 (primary diagnosis) - COVID WITH FLUA+B, ROUTINE 2. Dizziness - ICD9: 780.4, ICD10: R42 COVID-19 test ordered. Results pending. Alternative diagnosis discussed. Patient nontoxic appearing on exam. No abnormal findings on orthostatic blood pressures. Patient was instructed if dizziness is still present or reoccurs needed to be seen in the ED for further evaluation care. Patient plus caregiver verbalized understanding agrees with plan of care. Rakesh Geiger APRN.CNP documented in this encounter [facility] 08-25-2021 History of Present illness Narrative Radiology Service Progress Note PATIENT NAME: Sushil Sanchez DATE OF SERVICE: August 25, 2021 TIME: 10:46 AM PATIENT IDENTITY VERIFICATION COMPLETED USING TWO (2) IDENTIFIERS: Name and Date of confirmed by patient verbally. FALL SCREENING: Has the patient had 2 falls in the last year or 1 fall with injury or currently using an Ambulatory Assistive Device (Walker, Cane, Wheelchair, Crutches, etc.)? No PATIENT GENDER DATA: Female. status: : No status: NO. PATIENT RELEVANT IMPLANT DATA REVIEWED: Yes RADIOLOGY DEPARTMENT: General X-ray: Exam(s) Completed: Lower Extremity X-Ray(s): Foot, Right and Wt. 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 02/28/2018 Mesenteric adenitis 10/02/2011 11/18/2014 Eczema 02/28/2018 documented as of this encounter (statuses as of 04/03/2022) [facility] History of Past illness Narrative* Problem Noted Date Resolved Date 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 02/28/2018 Mesenteric adenitis 10/02/2011 11/18/2014 Eczema 02/28/2018 documented as of this encounter (statuses as of 04/11/2022) [facility] History of Past illness Narrative* Problem Noted Date Resolved Date 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 02/28/2018 Mesenteric adenitis 10/02/2011 11/18/2014 Eczema 02/28/2018 documented as of this encounter (statuses as of 04/16/2022) [facility] History of Past illness Narrative* Problem Noted Date Resolved Date 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 02/28/2018 Mesenteric adenitis 10/02/2011 11/18/2014 Eczema 02/28/2018 documented as of this encounter (statuses as of 05/08/2022) [facility] Diagnosis Viral illness- Primary Unspecified viral infection, in conditions classified elsewhere and of unspecified site Dizziness Dizziness and giddiness [facility] Diagnosis Change in bowel habits- Primary Other symptoms involving digestive system [facility] Diagnosis Abdominal pain, unspecified abdominal location- Primary Bowel habit changes Other symptoms involving digestive system [facility] Diagnosis Change in bowel habits Other symptoms involving digestive system [facility] Diagnosis Foot pain, right Pain in limb [facility] Diagnosis Encounter for medical examination to establish care- Primary Mild intermittent asthma with acute exacerbation Unspecified asthma, with exacerbation Anxiety and depression Dysthymic disorder Arthralgia, unspecified joint Special screening examination for viral disease Special screening examination for unspecified viral disease Screening for HIV (human immunodeficiency virus) Special screening examination for other specified viral diseases Encounter for screening examination for other mental health and behavioral disorders Screening for depression documented in this encounter [facility] for referral (narrative)* Diagnostic Procedure Only (Routine) - Closed Specialty Diagnoses / Procedures Referred By Pavel t Referred To Contact XR IMAGING Diagnoses Change in bowel habits Procedures XR ABDOMEN 1V SUPINE RADIOLOGIC EXAM ABDOMEN 1 VIEW Saeed Ryder MD [address] [place] [address] Xr Imaging Referral ID Status Reason Start Date Expiration Date V isits Requested Visits Authorized [id number] Closed Auto-Generate d Referral 04/11/2022 05/11/2023 1 1 * Consult, Test, Treat (Routine) - Authorized Specialty Diagnoses / Procedures Referred By Contac t Referred To Contact Gastroenterology Diagnoses Change in bowel habits Procedures CONSULT TO GASTROENTEROLOGY OFFICE/OUTPATIENT [facility] MDM 60-74 MINUTES Saeed Ryder MD [address] [place] [address] Referral ID Status Reason Start Date Expiration Date Visits Requested Visits Authorized [id number] Authorized PCP Requested Referral 04/11/2022 04/11/2023 1 1 [facility] for referral (narrative)* Diagnostic Procedure Only (Routine) - Closed Specialty Diagnoses / Procedures Referred By Contac t Referred To Contact XR IMAGING Diagnoses Change in bowel habits Procedures XR ABDOMEN 1V SUPINE RADIOLOGIC EXAM ABDOMEN 1 VIEW Saeed Ryder MD [address] [place] [address] [place] [address] Referral ID Status Reason Start Date Expiration Date V isits Requested Visits Authorized [id number] Closed Auto-Generate d Referral 04/11/2022 05/11/2023 1 1 [facility] for referral (narrative)* Diagnostic Procedure Only (Urgent) - Closed Specialty Diagnoses / Procedures Referred By Contac t Referred To Contact XR IMAGING Diagnoses Foot pain, right Procedures XR FOOT GENERAL 3V AP/LAT/OBL RIGHT X-RAY FOOT MINIMUM 3 VIEWS Gisselle Cook, MALACHI.DIRECTOR COMPLIANCE [address] [place] [address] [place] [address] Referral ID Status Reason Start Date Expiration Date V isits Requested Visits Authorized [id number] Closed Auto-Generate d Referral 08/25/2021 09/24/2022 1 1 [facility] for visit Narrative* Diagnostic Procedure Only (Routine) - Closed Specialty Diagnoses / Procedures Referred By Contac t Referred To Contact XR IMAGING Diagnoses Change in bowel habits Procedures XR ABDOMEN 1V SUPINE RADIOLOGIC EXAM ABDOMEN 1 VIEW Saeed Ryder MD [address] [place] [address] [place] [address] Referral ID Status Reason Start Date Expiration Date V isits Requested Visits Authorized [id number] Closed Auto-Generate d Referral 04/11/2022 05/11/2023 1 1 [facility] for visit Narrative* Diagnostic Procedure Only (Urgent) - Closed Specialty Diagnoses / Procedures Referred By Contac t Referred To Contact XR IMAGING Diagnoses Foot pain, right Procedures XR FOOT GENERAL 3V AP/LAT/OBL RIGHT X-RAY FOOT MINIMUM 3 VIEWS Gisselle Cook, SQUIRT MACHINE OPERATOR.DIRECTOR COMPLIANCE [address] [place] [address] [place] [address] Referral ID Status Reason Start Date Expiration Date V isits Requested Visits Authorized [id number] Closed Auto-Generate d Referral 08/25/2021 09/24/2022 1 1 [facility] Reason for Referral Specialty Diagnoses / Procedures Referred By Contac t Referred To Contact Diagnoses Mild intermittent asthma with acute exacerbation LorettalogRandal cochran APRN.DIRECTOR COMPLIANCE [address] [place] [address] Referral ID Status Reason Start Date Expiration Date V isits Requested Visits Authorized [id number] Pending Review 07/20/2024 09/18/2024 1 1 Summary Purpose Family History No Family History Records Found Advance Directives No Advanced Directives Records Found Additional Source Comments Source Comments (unrecognize d section and content) In the event this informatio n is protected by the Federal Confidentiality of Alcohol and Drug Abuse Patient Records regulations: The Federal rules restrict any use of the information to criminally investigate or prosecute any alcohol or drug abuse patient.[facility] event this information is protected by the Federal Confidentiality of Alcohol and Drug Abuse Patient Records regulations: The Federal rules restrict any use of the information to criminally investigate or prosecute any alcohol or drug abuse patient.[facility] event this information is protected by the Federal Confidentiality of Alcohol and Drug Abuse Patient Records regulations: The Federal rules restrict any use of the information to criminally investigate or prosecute any alcohol or drug abuse patient.[facility] event this information is protected by the Federal Confidentiality of Alcohol and Drug Abuse Patient Records regulations: The Federal rules restrict any use of the information to criminally investigate or prosecute any alcohol or drug abuse patient.[facility] event this information is protected by the Federal Confidentiality of Alcohol and Drug Abuse Patient Records regulations: The Federal rules restrict any use of the information to criminally investigate or prosecute any alcohol or drug abuse patient.[facility] event this information is protected by the Federal Confidentiality of Alcohol and Drug Abuse Patient Records regulations: The Federal rules restrict any use of the information to criminally investigate or prosecute any alcohol or drug abuse patient.[facility] the event this information is protected by the Federal Confidentiality of Alcohol and Drug Abuse Patient Records regulations: The Federal rules restrict any use of the information to criminally investigate or prosecute any alcohol or drug abuse patient.[facility] the event this information is protected by the Federal Confidentiality of Alcohol and Drug Abuse Patient Records regulations: The Federal rules restrict any use of the information to criminally investigate or prosecute any alcohol or drug abuse patient.[facility] Reason for Visit (unrecogniz ed section and content) Reason Comments Diarrhea diarrhea, lightheade d, dizzy and fever x 4 days Reason Onset Date Comments Asthma 03/19/2022 Breat[facility] Well Fol low up Reason Comments Diarrhea nausea, constipation , indigestion x3 weeks intermittent Reason Comments Bowel Issues questioning IBS or b acteria overgrowth Reason Comments Results Reason Comments Establish Care Care Teams (unrecognized sec tion and content) Referral Coordinator Relationship Specialty Start Date End Date Gurjit Boyer MD [address] [place] [address] PCP - General 09/27/04 Referral Coordinator Relationship Specialty Start Date End Date Gurjit Boyer MD [address] [place] [address] PCP - General 09/27/04 Referral Coordinator Relationship Specialty Start Date End Date Gurjit Boyer MD [address] [place] [address] PCP - General 09/27/04 Referral Coordinator Relationship Specialty Start Date End Date Gurjit Boyer MD [address] [place], [place] [address] [phone] PCP - General 09/27/04 Referral Coordinator Relationship Specialty Start Date End Date Gurjit Boyer MD [address] [place] [address] PCP - General 09/27/04 Referral Coordinator Relationship Specialty Start Date End Date Gurjit Boyer MD [address] [place], [place] [id number] [phone] PCP - General 09/27/04 Referral Coordinator Relationship Specialty Start Date End Date Daily Garsia MD [address] [place] [address] PCP - General Family Medicine 07/20/24 Randal Jackson APRN.CNP [address] [place] [address] Family Medicine 07/20/24 INFORMATION SOURCE (unrecogn ized section and content) DATE CREATED AUTHOR 07/21/2024 [facility] FOR RECORDS PERTAINING TO PATIENTS WHO ARE OR HAVE BEEN ENROLLED IN A CHEMICAL DEPENDENCY/SUBSTANCEABUSE PROGRAM, SOME INFORMATION MAY BE OMITTED. This clinical summary was aggregated from multiple sources. Caution should be exercised in using it in the provision of clinical care. This summary normalizes information from multiple sources, and as a consequence, information in this document may materially change the coding, format and clinical context of patient data. In addition, data may be omitted in some cases. CLINICAL DECISIONS SHOULD BE BASED ON THE PRIMARY CLINICAL RECORDS. [employer] [facility]. provides no warranty or guarantee of the accuracy or completeness of information in this document.
[2024-07-21 22:59] VITALS: BP 124/79; PULSE 89; RESP 16; TEMP 36.6; O2SAT 98
[2024-07-21 23:00] VITALS: O2SAT 98
[2024-07-21] MEDS: Ondansetron 4 MG/2 ML Vial IV (23:06)
== END 2024-07-21 23:08 | disposition home or self-care (01) ==
PROVIDERS: Emergency Provider Emergency Medicine; PCP Pediatrics; Visit Provider Emergency Medicine
DX: R42 Dizziness and giddiness (principal); T43.225A Adverse effect of selective serotonin reuptake inhibitors, initial encounter; J45.909 Unspecified asthma, uncomplicated; F32.A Depression, unspecified; F41.9 Anxiety disorder, unspecified; Z79.899 Other long term (current) drug therapy
CPT/HCPCS: 80048; 85025; 96374; 99284; A4216; J2405

== ENCOUNTER 2024-08-15 21:53 | Emergency (ER) | payer MEDICAID, SELFPAY ==
[2024-08-15 21:54] VITALS: BP 127/89; PULSE 130; RESP 18; TEMP 37; O2SAT 99; BMI 21.0
--- NOTE | 2024-08-15 22:06 | EX.ED.DYSGE1 ---
HPI History of Present Illness Chief Complaint: Ear Problem Detail of Chief Complaint: Right ear pain that started earlier today and now complaining of left ear p Informant: patient Onset/Context/Timing Onset: Today Context: Sudden Onset Timing: Continuous Quality: Pain Location: Right ear greater than left. Current Severity: Moderate Maximum Severity: Moderate Worsened by: Nothing Relieved by: Nothing Associated Symptoms Associated Symptoms: Drainage from right ear Narrative Narrative: Patient is a 24-year-old female who presents with right ear pain that started earlier today. She now complains of slight left ear pain. She does endorse drainage from the right ear. She denies using Q-tips. She denies fever, chills night sweats. Denies headache, photophobia, neck pain or neck stiffness. She does endorse upper respiratory tract infectious symptoms. That started a couple days ago. She denies nausea, vomiting or diarrhea. She has not noted a rash. Prior similar symptoms: Yes Recent Illness/Hospitalization: No PFSH PFSH Medical History Depression Anxiety Asthma Home Medications ?Medication ?Instructions ?Recorded ?Last Taken ?Type fluticasone propionate 44 2 puff inhalation PRN PRN Sob &/Or 07/01/15 Unknown History mcg/actuation HFA aerosol inhaler Wheezing (Flovent HFA) amoxicillin 500 mg capsule 500 mg PO TID 10 days #30 caps 11/19/21 Unknown Rx fluticasone propionate 50 1 spray intranasal DAILY #16 grams 11/19/21 Unknown Rx mcg/actuation nasal spray,suspension (Flonase Allergy Relief) escitalopram oxalate 10 mg tablet 10 mg PO DAILY 07/21/24 Unknown History ondansetron 4 mg disintegrating 4 mg PO TID PRN nausea and 07/21/24 Unknown Rx tablet vomiting #21 tabs azithromycin 250 mg tablet See Rx Instructions PO .COMPLEX #6 08/15/24 Unknown Rx tabs Allergy/AdvReac Type Severity Reaction Status Date / Time No Known Allergies Allergy Verified 07/21/24 21:25 Surgical History History of tonsillectomy and adenoidectomy Social History (Updated 08/15/24 @ 22:[address] Skip Vicente MD) household members: family Smoking Status: Never smoker ROS ROS ED Constitutional Constitutional ED: Denies chills, fever(s) or subjective Eyes Eyes: Denies blurry vision or change in vision ENT ENT ED: Reports ear pain bilateral and sore throat; Denies rhinorrhea Cardiovascular Cardiovascular: Denies chest pain or palpitations Respiratory/Chest Respiratory/Chest: Reports cough; Denies dyspnea, dyspnea on exertion or sputum Gastrointestinal Gastrointestinal: Denies nausea or vomiting EXAM Physical Exam Const Vital Signs: 08/15/24 21:54 Temperature 98.6 F Temperature Source Temporal Pulse Rate 130 H Respiratory Rate 18 Blood Pressure 127/89 H Blood Pressure Mean 101 Pulse Ox 99 Oxygen Delivery Method Room Air Positive well nourished and well developed General Appearance ED: well developed and NAD; Negative for pallor HEENT Reports moist mucous membranes HEENT Narrative: Posterior pharynx is normal. Uvula is midline. There is no deviation with protrusion. Ears are normal. External auditory canal is normal bilaterally. The right TM reveals bullous myringitis and there appears to be may be a small perforation anterior inferior quadrant. Left TM is remarkable for a serous otitis. Nares patent. Slight clear drainage. Neck is supple. Eyes PERRL and EOMs intact bilaterally General Eye ED: Negative for pale conjunctiva Neck supple and no JVD Extremity normal to inspection Neuro oriented x3 and CN's II-XII intact bilaterally Sensorium / Orientation: alert Psych mental status grossly normal Skin no rashes or lesions noted and no wounds General Skin Exam: Negative for jaundice or pallor MDM MDM MDM Narrative Medical decision making narrative: Patient has perforation due to bullous myringitis of the right ear and serous otitis left ear. Will treat with azithromycin which will cover typical as well as atypical organisms. This may represent a viral infection as well. Patient is noted to be tachycardic. She is not febrile. History & Record Review Discussion w/independent historian: Patient Additional record(s) reviewed:: Prior ED visit (July 21 for adverse reaction of medication, November 19, 2021 for bronchitis.) Discharge Plan Triage Chief Complaint: Ear Problem ED Provider: Skip Vicente Dx/Rx/DC Orders Clinical Impression: Bullous myringitis of right ear, Acute serous otitis media of left ear, Upper respiratory infection, Acute otitis media of right ear with perforated tympanic membrane Instructions: ED Otitis Media Adult, ED PERFORATED TM Infected [Adult] Prescriptions: New azithromycin 250 mg tablet See Rx Instructions .ROUTE .COMPLEX Qty: 6 0RF Rx Instructions: For 250 mg dose pack: take 500 mg today (day 1), then 250 mg for 4 days (days 2-5) No Action fluticasone propionate [Flovent HFA] 1 INHALER inhaler 2 puff inhalation PRN PRN (Reason: Sob &/Or Wheezing) Patient Comments: amoxicillin 500 mg capsule 500 mg PO TID 10 Days Qty: 30 0RF fluticasone propionate [Flonase Allergy Relief] 50 mcg/actuation spray,suspension 1 spray intranasal DAILY Qty: 16 0RF Rx Instructions: administer into each nostril escitalopram oxalate 10 mg tablet 10 mg PO DAILY ondansetron 4 mg tablet,disintegrating 4 mg PO TID PRN (Reason: nausea and vomiting) Qty: 21 0RF Primary Care Provider: Deepak Garsia Referrals: Gurjit Vega MD [Non-Staff] - 3-5 Days if not improving Print Language: Pakistani Disposition Disposition: Home, Self Care
== END 2024-08-15 22:24 | disposition home or self-care (01) ==
PROVIDERS: Emergency Provider Emergency Medicine; PCP Family Medicine; Visit Provider Emergency Medicine
DX: H65.92 Unspecified nonsuppurative otitis media, left ear (principal); H66.91 Otitis media, unspecified, right ear; H72.91 Unspecified perforation of tympanic membrane, right ear; J06.9 Acute upper respiratory infection, unspecified; R21 Rash and other nonspecific skin eruption; J45.909 Unspecified asthma, uncomplicated
CPT/HCPCS: 99282

== ENCOUNTER 2025-04-03 20:55 | Emergency (ER) | payer MEDICAID, SELFPAY ==
[2025-04-03 20:56] VITALS: BP 149/100; PULSE 135; RESP 16; TEMP 37.4; O2SAT 100; BMI 22.6
--- NOTE | 2025-04-03 21:02 | RAD_ITS ---
PROCEDURE: HAND MIN 3 VIEWS 04/03/2025 REASON FOR EXAM: PAIN TECHNIQUE: Three views of each hand COMPARISON: None FINDINGS: No displaced fracture or traumatic malalignment. Bone mineral density is subjectively normal. The soft tissues are unremarkable. RAD/Hand Min 3 Views IMPRESSION: No acute osseous abnormality of either hand. Reading Location: [id number]
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
--- NOTE | 2025-04-03 21:15 | RAD_ITS ---
PROCEDURE: HAND MIN 3 VIEWS 04/03/2025 REASON FOR EXAM: PAIN TECHNIQUE: Three views of each hand COMPARISON: None FINDINGS: No displaced fracture or traumatic malalignment. Bone mineral density is subjectively normal. The soft tissues are unremarkable. RAD/Hand Min 3 Views IMPRESSION: No acute osseous abnormality of either hand. Reading Location: [id number]
--- OUTSIDE RECORDS SUMMARY | 2025-04-03 21:28 | XMS RPT_ITS | CCD ---
Author Organization [facility] Care Team Providers Care Locker Room Clerk Name Role Phone Gurjit Vega MD Primary Care Provider Daily Garsia MD Primary Care Provider Podlogar LAUNDRY ROUTEMAN.Fatuma BOSTON Unavailable Podlogar LAUNDRY ROUTEMAN.SODA DRIER FEEDERFatuma Unavailable DAILY GARSIA Primary Care Unavailab le DAILY GARSIA Primary Care Unavailab le PODLOGAR, FATUMA Attending Unavailable DAILY GARSIA Primary Care Unavailab le DAILY GARSIA Primary Care Unavailab le PODLOGAR, FATUMA Referring Unavailable DAILY GARSIA Primary Care Unavailab le PODLOGAR, FATUMA Attending Unavailable DAILY GARSIA Primary Care Unavailab le DAILY GARSIA Primary Care Unavailab le Bursley, Deepak Primary Care Unavailable Vicente, Skip Attending Unavailable Tobi Haney Attending Unavailable Gurjit Vega Primary Care Unavailable Allergies Allergy Classification Reported Allergen(s) Allergy Type Date of Onset Reaction(s) Facility (20 sources) Cat; Translations: [CATS] Propensity to adverse reactions 0 [facility] (20 sources) Dog; Translations: [DOGS] Allergy to substance 5 Other: See Comments [facility] Work Phone: (20 sources) Seasonal allergy; Translations: [SEASONAL ALLERGIES] Allergy to substance 4 Other: See Comments [facility] Work Phone: (11 sources) Escitalopram; Translations: [ESCITALOPRAM] Drug Allergy 4 Other: See Comments [facility] Medications Current Medications Medication Drug Class(es) Dates Sig (Normalized) Sig (Original) 200 actuat albuterol 0.09 mg/actuat dry powder inhaler (20 sources) beta2-Adrenergic Agonist Start: 12-04-2019 End: 07-20-2024 [...] in structed every 4 hours as needed. amoxicillin 875 mg / clavulanate 125 mg oral tablet (4 sources) Penicillin-class Antibacterial Start: 08-12-20 End: 08-19-20 take 1 tablet by mouth twice daily amoxicillin-clavula samira potassium (AUGMENTIN) 875-125 mg per tablet Indications: Acute otitis media, right Take 1 tablet by mouth two times a day for 7 days. 14 tablet 08/12/2024 08/19/2024 Active benzonatate 100 mg oral capsule (3 sources) Non-narcotic Antitussive Start: 08-14-20 End: 08-24-20 take 1 capsule by mouth every eight hours as needed benzonatate (TESSALON PERLE) 100 mg capsule Take 1 capsule by mouth three times a day as needed for up to 10 days. 30 capsule 08/14/2024 08/24/2024 Active fluticasone propionate 0.05 mg/actuat metered dose nasal spray (20 sources) Corticosteroid Start: 08-12-20 take 2 spray(s) by mouth once daily fluticasone (FLONASE) 50 mcg/actuation nasal spray Indications: Acute otitis media, right Use 2 Sprays in each nostril once daily. Rinse mouth after use. 1 Each 08/12/2024 Active Start: 07-19-2020 fluticasone (F LOVENT HFA) 110 mcg/actuation inhaler Inhale 1 puff twice daily. Via spacer then rinse and gargle with water. 1 Inhaler 3 07/19/2020 Active Comment on above: Inhale 1 puff twice daily. Via spacer then rinse and gargle with water. ondansetron 4 mg disintegrating oral tablet (4 sources) Serotonin-3 Receptor Antagonist Start: 08-18-20 take 1 tablet by mouth every eight hours as needed for nausea ondansetron orally disintegrating (ZOFRAN ODT) 4 mg disintegrating tablet Indications: Acute otitis media, left Take 1 tablet by mouth every 8 hours as needed for nausea/vomiting. 9 tablet 08/18/2024 Active Completed/Discontinued Medications Medication Drug Class(es) Dates Sig (Normalized) Sig (Original) amoxicillin 875 mg oral tablet (2 sources) Penicillin-class Antibacterial Start: 08-11-20 End: 08-18-20 take 1 tablet by mouth twice daily amoxicillin (AMOXIL) 875 mg tablet Indications: Other acute nonsuppurative otitis media of right ear, recurrence not specified Take 1 tablet by mouth two times a day for 7 days. 14 tablet 08/11/2024 08/12/2024 Discontinued coal tar 5 mg/ml medicated shampoo (4 sources) Start: 02-28-20 End: 04-11-20 coal tar (NEUTROGENA T-GEL) 0.5 % shampoo Apply 1 application to affected area as needed (for flaky scalp). 237 mL 1 02/27/2019 04/11/2022 Discontinued (Course of therapy completed) Comment on above: Apply 1 application to affected area as needed (for flaky scalp). escitalopram 10 mg oral tablet (3 sources) Serotonin Reuptake Inhibitor Start: 07-20-20 End: 08-08-20 take 1 tablet by mouth once daily escitalopram oxalate (LEXAPRO) 10 mg tablet Indications: Anxiety and depression Take 1 tablet by mouth once daily. 30 tablet 1 07/20/2024 08/08/2024 Discontinued (Allergic response) 1 ml medroxyPROGESTERone acetate 150 mg/ml prefilled syringe (1 source) Progestin Start: 02-22-20 End: 01-24-20 22 medroxyPROGESTERone 150 mg injection (DEPO-PROVERA) Problems Active Problems Problem Classification Problem Date Documented Da te Episodic/Chronic Abdominal pain (1 source) Abdominal pain; Translations: [Unspecified abdominal pain] Episodic Anxiety disorders (2 sources) Mixed anxiety and depressive disorder; Translations: [Anxiety disorder, unspecified] Onset: 07-20-2024 07-20-2024 Chronic Asthma (20 sources) Asthma; Translations: [Unspecified asthma, uncomplicated] Onset: 11-17-2011 11-17-2011 Chronic Conditions associated with dizziness or vertigo (2 sources) Dizziness; Translations: [Dizziness and giddiness] Onset: 08-11-2024 Episodic Immunizations and screening for infectious disease (6 sources) Viral screening status; Translations: [Encounter for screening for other viral diseases] Onset: 07-20-2024 07-20-2024 Episodic Mood disorders (1 source) Mood disorders; Translations: [Anxiety and depression] Onset: 07-20-2024 Other connective tissue disease (1 source) Pain in right foot; Translations: [Pain in right foot] 08-25-2021 Episodic Other ear and sense organ disorders (1 source) Hearing loss of right ear; Translations: [Unspecified hearing loss, right ear] 08-18-2024 Chronic Other ear and sense organ disorders (1 source) Unspecified hearing loss, right ear; Translations: [Decreased hearing of right ear] Onset: 08-18-2024 Chronic Other ear and sense organ disorders (1 source) Unspecified disorder of ear, bilateral; Translations: [Unspecified disorder of ear, bilateral] Onset: 09-15-2024 Episodic Other gastrointestinal disorders (2 sources) Alteration in bowel elimination; Translations: [Change in bowel habit] Episodic Other gastrointestinal disorders (1 source) Altered bowel function; Translations: [Change in bowel habit] 04-11-2022 Episodic Other lower respiratory disease (1 source) Cough; Translations: [Acute cough] 08-11-2024 Episodic Other non-traumatic joint disorders (1 source) Joint pain; Translations: [Pain in unspecified joint] 07-20-2024 Episodic Other non-traumatic joint disorders (1 source) Pain in unspecified joint; Translations: [Arthralgia, unspecified joint] Onset: 07-20-2024 Episodic Other upper respiratory infections (1 source) Sore throat symptom; Translations: [Acute pharyngitis, unspecified] 08-08-2024 Episodic Otitis media and related conditions (7 sources) Acute secretory otitis media; Translations: [Other acute nonsuppurative otitis media, right ear] Onset: 08-18-2024 08-11-2024 Episodic Screening and history of mental health and substance abuse codes (4 sources) Patient encounter status; Translations: [Encounter for screening examination for other mental health and behavioral disorders] Onset: 07-20-2024 07-20-2024 Episodic Viral infection (1 source) Viral disease; Translations: [Viral infection, unspecified] Episodic Past or Other Problems Problem Classification Problem Date Documented Date Episodic/Chronic Allergic reactions (14 sources) Eczema; Translations: [Dermatitis, unspecified] Resolved: 02-28-2018 02-28-2018 Episodic Lymphadenitis (14 sources) Mesenteric lymphadenitis; Translations: [Nonspecific mesenteric lymphadenitis] Onset: 10-02-2011 Resolved: 11-18-2014 11-18-2014 Episodic Other non-traumatic joint disorders (14 sources) Instability of right patellofemoral joint; Translations: [Other instability, right knee] Onset: 06-08-2016 Resolved: 02-28-2018 02-28-2018 Episodic Results Test Name Value Interpretation Reference Range Chase Pickering 09-07-2024 [facility] Nurse Visit (FAMPWS) FRANCISCO SANCHEZ ([id number]) 4 F Date Time Provider Department 09/07/24 1:30 PM [facility] During your visit today, we recorded the following information about you: Faith Berger LPN 09/07/2024 2:03 PM Signed Patient presents for TDAP vaccine. Denies any problems at this time. Tolerated injection well. Faith Berger LPN Allergies As of Date: 09/07/2024 Noted Allergy Reaction CATS 01/23/2010 DOGS 12/29/2014 14 - Other: See Comments LEXAPRO (ESCITALOPRAM) 08/08/2024 14 - Other: See Comments Comments: Legs numb, dizziness, SEASONAL ALLERGIES 07/08/2014 14 - Other: See Comments Comments: Tree, Grass pollen Spring, Summer, Fall Date Reviewed: 08/18/2024 Reviewed by: Kaylee Rodriguez LPN - Fully Assessed Reason for Visit: Imm/Inj [58] Primary Visit Diagnosis:Encounter for immunization [Z23] Prescriptions as of 09/07/2024 - ondansetron orally disintegrating (ZOFRAN ODT) 4 mg disintegrating tablet Take 1 tablet by mouth every 8 hours as needed for nausea/vomiting. - fluticasone (FLONASE) 50 mcg/actuation nasal spray Use 2 Sprays in each nostril once daily. Rinse mouth after use. - albuterol (PROVENTIL) 2.5 mg /3 mL (0.083 %) nebulizer solution Use 3 mL via nebulizer every 4 hours as needed. OVER 5-15 MINUTES. FOR WHEEZING AND SHORTNESS OF BREATH. - ProAir RespiClick 90 mcg/actuation breath activated (albuterol sulfate) Inhale 2 Puffs as instructed every 4 hours as needed. - fluticasone (FLOVENT HFA) 110 mcg/actuation inhaler Inhale 1 puff twice daily. Via spacer then rinse and gargle with water. Meds Comments as of 08/15/2024: August 15, 2024: Patient reports starting tylenol AND benzonatate (every 4-5 hours) in the last 30 days. 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 She is currently scheduled for a nurse visit on 09/07/24 to receive Hepatitis B and TDAP vaccines. Need to know if she completed blood titers somewhere that show that she is not immune to Hep B (immunization record has dates she receive vaccine). Will not need to repeat unless negative titers. ALFONSO Andrews Heather, LPN 09/04/2024 9:45 AM Signed Left additional message at this time. ALFONSO Andrews Heather, LPN 09/07/2024 10:53 AM Signed Still no contact back from pt; will discuss at visit today regarding Hep B vaccine. Please file order for TDAP. ALFONSO Andrews Christopher B, MD 09/07/2024 11:24 AM Signed Order approved. Faith Berger LPN 09/07/2024 2:04 PM Signed Spoke with patient at nurse visit appt today and printed immunization record for her. She has not had any blood titers completed. Faith Berger LPN Allergies As of Date: 09/02/2024 Noted Allergy Reaction CATS 01/23/2010 DOGS 12/29/2014 14 - Other: See Comments LEXAPRO (ESCITALOPRAM) 08/08/2024 14 - Other: See Comments Comments: Legs numb, dizziness, SEASONAL ALLERGIES 07/08/2014 14 - Other: See Comments Comments: Tree, Grass pollen Spring, Summer, Fall Date Reviewed: 08/18/2024 Reviewed by: Kaylee Rodriguez LPN - Fully Assessed Reason for Visit: Appointment [186] Visit Diagnosis:Encounter for immunization [Z23] Order(s):TDAP VACCINE, AGE 7+ YR (ADACEL, BOOSTRIX) [[id number]] Order #: [id number] Prescriptions as of 09/07/2024 - ondansetron orally disintegrating (ZOFRAN ODT) 4 mg disintegrating tablet Take 1 tablet by mouth every 8 hours as needed for nausea/vomiting. - fluticasone (FLONASE) 50 mcg/actuation nasal spray Use 2 Sprays in each nostril once daily. Rinse mouth after use. - albuterol (PROVENTIL) 2.5 mg /3 mL (0.083 %) nebulizer solution Use 3 mL via nebulizer every 4 hours as needed. OVER 5-15 MINUTES. FOR WHEEZING AND SHORTNESS OF BREATH. - ProAir RespiClick 90 mcg/actuation breath activated (albuterol sulfate) Inhale 2 Puffs as instructed every 4 hours as needed. - fluticasone (FLOVENT HFA) 110 mcg/actuation inhaler Inhale 1 puff twice daily. Via spacer then rinse and gargle with water. Meds Comments as of 08/15/2024: August 15, 2024: Patient reports starting tylenol AND benzonatate (every 4-5 hours) in the last 30 days. 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 08-27-20[facility] FRANCISCO SANCHEZ ([id number]) 4 F Date Time Provider Department 08/27/24 DAILY GARSIA During your visit today, we recorded the following information about you: Esther Cedeño 08/27/2024 9:30 AM Signed Patient's guardian called to request a referral to ENT for reoccurring BL ear infections. Please contact guardian to advise. EVGENY. [phone] Fatuma Jackson APRN.LUDY 08/31/2024 7:51 AM Signed From my understanding when I met patient she does not have a legal guardian anymore..Can we contact the patient and see if she is wanting the referral please. IF grandmother is no longer guardian we need to remove this. Fatuma Jackson APRN.Kaylee Bateman LPN 08/31/2024 9:41 AM Signed Telephone call placed to patient. Message left to call office back. FYI, this is in patients chart notes. Pt gives her mom , Nicole Lee permission to call in on her behalf. 06/05/24. ALFONSO Randall Julie, APRN.LUDY 08/31/2024 9:49 AM Signed Order for ENT consult placed. Fatuma Jackson APRN.Naomi Burr MA 08/31/2024 10:44 AM Signed Please call to set up ENT appt. Lorena Richard 08/31/2024 1:[address] attempt left message to return call. Please see phone note from PCP office in regards to :From my understanding when I met patient she does not have a legal guardian anymore..Can we contact the patient and see if she is wanting the referral please. IF grandmother is no longer guardian we need to remove this. And then assist with ENT referral. Faiht Berger LPN 09/07/2024 2:06 PM Signed Discussed with patient about ENT referral and guardianship. States that she does not have any legal guardianship now that she is an adult (updated demographic information). She also saw Stephanie ENT on 09/03/24. Faith Berger LPN Allergies As of Date: 08/27/2024 Noted Allergy Reaction CATS 01/23/2010 DOGS 12/29/2014 14 - Other: See Comments LEXAPRO (ESCITALOPRAM) 08/08/2024 14 - Other: See Comments Comments: Legs numb, dizziness, SEASONAL ALLERGIES 07/08/2014 14 - Other: See Comments Comments: Tree, Grass pollen Spring, Summer, Fall Date Reviewed: 08/18/2024 Reviewed by: Kaylee Rodriguez LPN - Fully Assessed Reason for Visit: Internal Referrals/resources [908] Cmt: ENT Primary Visit Diagnosis:Ear infection [H66.90] Order(s):CONSULT TO ENT [7208] Order #: [id number]: 1 FUTURE Prescriptions as of 09/07/2024 - ondansetron orally disintegrating (ZOFRAN ODT) 4 mg disintegrating tablet Take 1 tablet by mouth every 8 hours as needed for nausea/vomiting. - fluticasone (FLONASE) 50 mcg/actuation nasal spray Use 2 Sprays in each nostril once daily. Rinse mouth after use. - albuterol (PROVENTIL) 2.5 mg /3 mL (0.083 %) nebulizer solution Use 3 mL via nebulizer every 4 hours as needed. OVER 5-15 MINUTES. FOR WHEEZING AND SHORTNESS OF BREATH. - ProAir RespiClick 90 mcg/actuation breath activated (albuterol sulfate) Inhale 2 Puffs as instructed every 4 hours as needed. - fluticasone (FLOVENT HFA) 110 mcg/actuation inhaler Inhale 1 puff twice daily. Via spacer then rinse and gargle with water. Meds Comments as of 08/15/2024: August 15, 2024: Patient reports starting tylenol AND benzonatate (every 4-5 hours) in the last 30 days. 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] 06/08/2016 02/28/2018 Encounter Status:Closed by FAITH BERGER on 09/07/24 [facility] 08-18-2024 [facility] Office Visit (FAMPWS ) FRANCISCO ([id number]) 4 F Date Time Provider Department 08/18/24 9:20 AM FATUMA JACKSON During your visit today, we recorded the following information about you: Temperature Pulse Respiration Blood pressure 98.2 degrees 110/minute 16/minute 112/84 Weight 51.5 kg JacintologFatuma crawford APRN.SODA DRIER FEEDER 08/18/2024 3:10 PM Signed 08/18/2024 Patient presents with: ER F/U: [facility] 08/15 SUBJECTIVE: This is a 24 year old, accompanied by mother, that is here today for Above Complaints.. HOSPITAL/ER FOLLOW UP: Reason for visit: bilateral ear pain Which facility: [facility] Date of visit: 08/15/2024 Diagnosis: Otitis Media perforated ear drum - right Testing done: none Treatment given: Zithromax Did not take Zithromax last night as it upset her stomach. Feeling some improved. Reports hearing diminished right ear. Has a little pressure in the left ear. Some brownish drainage from right ear at times. Denies fevers, chills, tinnitus or other URI symptoms ER record reviewed PAST MEDICAL HISTORY Diagnosis Date Asthma Eczema Menarche aged 12 yrs Patellar instability of right knee PMH - PAST MEDICAL HISTORY OF hole in lung @ -resolved on it's own ALLERGIES Cats, Dogs, Lexapro [Escitalopram], and Seasonal Allergies MEDICATIONS Current Outpatient Medications Medication Sig benzonatate (TESSALON PERLE) 100 mg capsule Take 1 capsule by mouth three times a day as needed for up to 10 days. amoxicillin-clavulana te potassium (AUGMENTIN) 875-125 mg per tablet Take 1 tablet by mouth two times a day for 7 days. fluticasone (FLONASE) 50 mcg/actuation nasal spray Use 2 Sprays in each nostril once daily. Rinse mouth after use. albuterol (PROVENTIL) 2.5 mg /3 mL (0.083 %) nebulizer solution Use 3 mL via nebulizer every 4 hours as needed. OVER 5-15 MINUTES. FOR WHEEZING AND SHORTNESS OF BREATH. ProAir RespiClick 90 mcg/actuation breath activated (albuterol sulfate) Inhale 2 Puffs as instructed every 4 hours as needed. fluticasone (FLOVENT HFA) 110 mcg/actuation inhaler Inhale 1 puff twice daily. Via spacer then rinse and gargle with water. No current facility-administered medications for this visit. Medications and allergies reviewed by this provider. SOCIAL HISTORY Social History Tobacco Use Smoking status: Never Passive exposure: Yes Smokeless tobacco: Never Tobacco comments: Smokers go outside Vaping Use Vaping status: Never Used Substance Use Topics Alcohol use: Yes Comment: occasioanl Drug use: No REVIEW OF SYSTEMS All other reviewed and negative other than HPI. OBJECTIVE: BP 112/84 Pulse 110 Temp 36.8 ?C (98.2 ?F) Resp 16 Wt 51.5 kg (113 lb 8.6 oz) LMP 07/27/2024 (Exact Date) SpO2 98% BMI 21.16 kg/m? . Vital signs reviewed by this provider. APPEARANCE Well appearing, alert, in no acute distress, well-hydrated, well nourished. EYES conjunctiva and sclera normal. Ears: R TM - retracted, L TM - clear with good landmarks, nl light reflex THROAT normal, no erythema NECK Supple, no adenopathy; thyroid symmetric, normal size, no bruits HEART RRR with normal S1 and S2, no murmurs, no gallops, no JVD appreciated LUNG clear to auscultation. No wheezes, rhonchi or rales SKIN Skin color, texture, turgor normal, no suspicious rashes or lesions Meningococcal B Vaccine: Consider Based On Risk(1 of 2 - Patient Seeks Protection) Never done Spirometry Never done GC (Gonorrhea) Screening (18-24) Never done Cervical Cancer Screening Never done Influenza Vaccine(1) due on 05/24/2024 Covid-19 Vaccine(2023- season) due on 05/24/2024 DTaP,Tdap,Td Vaccine(7 - Td or Tdap) due on 2024 Chlamydia Screening (18-24) due on 07/20/2025 Depression Screening due on 07/20/2025 Anxiety Screening due on 07/20/2025 Annual PCP Team Chronic Disease Visit due on 08/18/2025 Hepatitis B Vaccine Completed HPV Vaccine Completed Hepatitis C Screening Completed HIV Screening Completed ASSESSMENT/PLAN: 1. Acute otitis media, left - ICD9: 382.9, ICD10: H66.92 (primary diagnosis) - improving - no red flag symptoms or exam findings - red flag symptoms discussed, verbalizes understanding - discussed importance of completing prescribed antibiotic, verbalizes understanding - prescription for Zofran given to take prior to antibiotic - ONDANSETRON 4 MG DISINTEGRATING TABLET - follow-up if symptoms fail to resolve 2. Perforation of right tympanic membrane - ICD9: 384.20, ICD10: H72.91 - plan as in #1 3. Decreased hearing of right ear - ICD9: 389.9, ICD10: H91.91 - may use Flonase nasal spray 1-2 sprays, rinse mouth after - follow-up if not improving over the next couple of weeks - no red flag symptoms or exam findings - red flag symptoms discussed, verbalizes understanding - will refer to ENT if persists Fatuma Podlogty, LAUNDRY ROUTEMAN.SODA DRIER FEEDER (more content not included)... [facility] Emergency Department Summary on 08-15-2024 Emergency Department Summary [facility] Medical Records Department [address] [place] [address] Emergency Department Summary 08/15/24 MR#: [id number] Acct: [id number] Name: FRANCISCO SANCHEZ Rep #: [id number] : 2000 24 From: Skip Vicente MD PCP: Dr. Deepak Garsia MD Status:REG ER Location: ED HPI History of Present Illness Chief Complaint: Ear Problem Detail of Chief Complaint: Right ear pain that started earlier today and now complaining of left ear p Informant: patient Onset/Context/Timing Onset: Today Context: Sudden Onset Timing: Continuous Quality: Pain Location: Right ear greater than left. Current Severity: Moderate Maximum Severity: Moderate Worsened by: Nothing Relieved by: Nothing Associated Symptoms Associated Symptoms: Drainage from right ear Narrative Narrative: Patient is a 24-year-old female who presents with right ear pain that started earlier today. She now complains of slight left ear pain. She does endorse drainage from the right ear. She denies using Q-tips. She denies fever, chills night sweats. Denies headache, photophobia, neck pain or neck stiffness. She does endorse upper respiratory tract infectious symptoms. That started a couple days ago. She denies nausea, vomiting or diarrhea. She has not noted a rash. Prior similar symptoms: Yes Recent Illness/Hospitalizati on: No PFSH [facility] Medical History Depression Anxiety Asthma Home Medications ???Medication ???Instructions ???Recorded ???Last Taken ???Type fluticasone propionate 44 2 puff inhalation PRN PRN Sob /Or 07/01/15 Unknown History mcg/actuation HFA aerosol inhaler Wheezing (Flovent HFA) amoxicillin 500 mg capsule 500 mg PO TID 10 days #30 caps 11/19/21 Unknown Rx fluticasone propionate 50 1 spray intranasal DAILY #16 grams 11/19/21 Unknown Rx mcg/actuation nasal spray,suspension (Flonase Allergy Relief) escitalopram oxalate 10 mg tablet 10 mg PO DAILY 07/21/24 Unknown History ondansetron 4 mg disintegrating 4 mg PO TID PRN nausea and 07/21/24 Unknown Rx tablet vomiting #21 tabs azithromycin 250 mg tablet See Rx Instructions PO .COMPLEX #6 08/15/24 Unknown Rx tabs Allergy/AdvReac Type Severity Reaction Status Date / Time No Known Allergies Allergy Verified 07/21/24 21:25 Surgical History History of tonsillectomy and adenoidectomy Social History (Updated 08/15/24 @ 22:[address] Skip Vicente MD) household members: family Smoking Status: Never smoker ROS ROS ED Constitutional Constitutional ED: Denies chills, fever(s) or subjective Eyes Eyes: Denies blurry vision or change in vision ENT ENT ED: Reports ear pain bilateral and sore throat; Denies rhinorrhea Cardiovascular Cardiovascular: Denies chest pain or palpitations Respiratory/Chest Respiratory/Chest: Reports cough; Denies dyspnea, dyspnea on exertion or sputum Gastrointestinal Gastrointestinal: Denies nausea or vomiting EXAM Physical Exam Const Vital Signs: 08/15/24 21:54 Temperature 98.6 F Temperature Source Temporal Pulse Rate 130 H Respiratory Rate 18 Blood Pressure 127/89 H Blood Pressure Mean 101 Pulse Ox 99 Oxygen Delivery Method Room Air Positive well nourished and well developed General Appearance ED: well developed and NAD; Negative for pallor HEENT Reports moist mucous membranes HEENT Narrative: Posterior pharynx is normal. Uvula is midline. There is no deviation with protrusion. Ears are normal. External auditory canal is normal bilaterally. The right TM reveals bullous myringitis and there appears to be may be a small perforation anterior inferior quadrant. Left TM is remarkable for a serous otitis. Nares patent. Slight clear drainage. Neck is supple. Eyes PERRL and EOMs intact bilaterally General Eye ED: Negative for pale conjunctiva Neck supple and no JVD Extremity normal to inspection Neuro oriented x3 and CN's II-XII intact bilaterally Sensorium / Orientation: alert Psych mental status grossly normal Skin no rashes or lesions noted and no wounds General Skin Exam: Negative for jaundice or pallor MDM MDM MDM Narrative Medical decision making narrative: Patient has perforation due to bullous myringitis of the right ear and serous otitis left ear. Will treat with azithromycin which will cover typical as well as atypical organisms. This may represent a viral infection as well. Patient is noted to be tachycardic. She is not febrile. History Record Review Discussion w/independent historian: Patient Additional record(s) reviewed:: Prior ED visit (July 21 for adverse reaction of medication, November 19, 2021 for bronchitis.) Discharge Plan Triage Chief Complaint: Ear Probl (more content not included)... Normal [facility] 08-14-2024 [facility] Telephone (RYANWS) FRANCISCO SANCHEZ ([id number]) 4 F Date Time Provider Department 08/14/24 DAILY GARSIA During your visit today, we recorded the following information about you: Pam Dixon LPN 08/14/2024 1:21 PM Signed Patient calling she has been in express care several times this week. She is asking for something for her cough. She has ear infection, and dry cough. She can not lay down without coughing all the time. she is not taking any otc cough syrup. Patient uses [facility]. Please advise Daily Garsia MD 08/14/2024 1:30 PM Addendum Rx sent for tessalon for cough. Take as directed and should not make her drowsy. Could try OTC Delsym instead if tessalon not helping. Continue treatment for ear infection. Call with new or worsening symptoms. Pam Dixon LPN 08/14/2024 1:50 PM Signed Phoned patient went over notes below from Dr Garsia with understanding. Aware rx sent to pharmacy. Allergies As of Date: 08/14/2024 Noted Allergy Reaction CATS 01/23/2010 DOGS 12/29/2014 14 - Other: See Comments LEXAPRO (ESCITALOPRAM) 08/08/2024 14 - Other: See Comments Comments: Legs numb, dizziness, SEASONAL ALLERGIES 07/08/2014 14 - Other: See Comments Comments: Tree, Grass pollen Spring, Summer, Fall Date Reviewed: 08/12/2024 Reviewed by: Fiona Weston MA - Fully Assessed Reason for Visit: Medication Request [138] Order(s):benzonatate (TESSALON PERLE) 100 mg capsuleTake 1 capsule by mouth three times a day as needed for up to 10 days.Disp: 30 capsuleRfl: 0 Prescriptions as of 08/14/2024 - benzonatate (TESSALON PERLE) 100 mg capsule Take 1 capsule by mouth three times a day as needed for up to 10 days. - amoxicillin-clavulana te potassium (AUGMENTIN) 875-125 mg per tablet Take 1 tablet by mouth two times a day for 7 days. - fluticasone (FLONASE) 50 mcg/actuation nasal spray Use 2 Sprays in each nostril once daily. Rinse mouth after use. - albuterol (PROVENTIL) 2.5 mg /3 mL (0.083 %) nebulizer solution Use 3 mL via nebulizer every 4 hours as needed. OVER 5-15 MINUTES. FOR WHEEZING AND SHORTNESS OF BREATH. - ProAir RespiClick 90 mcg/actuation breath activated (albuterol sulfate) Inhale 2 Puffs as instructed every 4 hours as needed. - fluticasone (FLOVENT HFA) 110 mcg/actuation inhaler Inhale 1 puff twice daily. Via spacer then rinse and gargle with water. 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 Encounter Status:Closed by PAM DIXON on 08/14/24 [facility]OV[facility] 08[facility]12[facility]2024 [facility] FRANCISCO SANCHEZ ([id number]) 4 F Date Time Provider Department 08/12/24 10:15 AM AUDI TINOCO [facility] During your visit today, we recorded the following information about you: Temperature Pulse Respiration Blood pressure 99 degrees 122/minute 18/minute 122/72 Weight 52.5 kg Audi Tinoco APRN.CNP 08/12/2024 11:17 AM Signed Subjective HPI HPI Francisco Sanchez is a 24 year old female who presents today for CC of rght ear pain worsening since yesterday. Started amox yesterday, dx otitis media. Symptoms are worsened by nothing. Recent uri. Nonsmoker. Denies possibility of being . .Patient presents with: Ear Pain: right, seen yesterday given amoxicillin, started draining today PAST MEDICAL HISTORY Diagnosis Date Asthma Eczema Menarche aged 12 yrs Patellar instability of right knee PMH - PAST MEDICAL HISTORY OF hole in lung @ -resolved on it's own PAST SURGICAL HISTORY Procedure Laterality Date ADENOIDECTOMY HX 12/2010 Dr. Ramírez PAST SURGICAL HISTORY OF cyst removal under tongue TONSILLECTOMY HX 12/2010 Dr. Ramírez TOOTH EXTRACTION 2019 wisdom teeth ALLERGIES Cats, Dogs, Lexapro [Escitalopram], and Seasonal Allergies MEDICATIONS amoxicillin (AMOXIL) 875 mg tablet Take 1 tablet by mouth two times a day for 7 days. albuterol (PROVENTIL) 2.5 mg /3 mL (0.083 %) nebulizer solution Use 3 mL via nebulizer every 4 hours as needed. OVER 5-15 MINUTES. FOR WHEEZING AND SHORTNESS OF BREATH. ProAir RespiClick 90 mcg/actuation breath activated (albuterol sulfate) Inhale 2 Puffs as instructed every 4 hours as needed. fluticasone (FLOVENT HFA) 110 mcg/actuation inhaler Inhale 1 puff twice daily. Via spacer then rinse and gargle with water. amoxicillin-clavulana te potassium (AUGMENTIN) 875-125 mg per tablet Take 1 tablet by mouth two times a day for 7 days. fluticasone (FLONASE) 50 mcg/actuation nasal spray Use 2 Sprays in each nostril once daily. Rinse mouth after use. FAMILY HISTORY Problem Relation Age of Onset other (Rheumatoid arthrits) Mother Diabetes Mother Ischemic Heart Disease Father Cancer Father Hypertension Maternal Grandmother Diabetes Maternal Grandmother Hypertension Maternal Grandfather Thyroid Maternal Grandfather COPD Maternal Grandfather other (Unknown) Paternal Grandmother other (Unknown) Paternal Grandfather Social History Tobacco Use Smoking status: Never Passive exposure: Yes Smokeless tobacco: Never Tobacco comments: Smokers go outside Vaping Use Vaping status: Never Used Substance Use Topics Alcohol use: Yes Comment: occasioanl Drug use: No Review of Systems Constitutional: Negative for fever. HENT: Positive for congestion, ear discharge and ear pain. Negative for nosebleeds and sore throat. Respiratory: Negative for shortness of breath and wheezing. Cardiovascular: Negative for chest pain. Musculoskeletal: Negative for neck pain. Skin: Negative for itching and rash. Objective Blood pressure 122/72, pulse (!) 122, temperature 37.2 ?C (99 ?F), resp. rate 18, weight 52.5 kg (115 lb 11.9 oz), last menstrual period 07/27/2024, SpO2 98%. Physical Exam Constitutional: General: She is not in acute distress. Appearance: She is not toxic-appearing or diaphoretic. HENT: Head: Normocephalic and atraumatic. Right Ear: Hearing and external ear normal. Tympanic membrane is erythematous and bulging (severe). Tympanic membrane is not perforated. Pulmonary: Effort: Pulmonary effort is normal. No accessory muscle usage or respiratory distress. Lymphadenopathy: Cervical: No cervical adenopathy. Right cervical: No superficial cervical adenopathy. Left cervical: No superficial cervical adenopathy. Neurological: Mental Status: She is alert and oriented to person, place, and time. ASSESSMENT/PLAN: 1. Acute otitis media, right - ICD9: 382.9, ICD10: H66.91 Stop amox, change to augmentin - Will begin treatment with as per antibiotic as written, see orders - Supportive care with plenty of fluids, rest, and analgesia prn. - Follow up in 3-5 days if symptoms persist or worsen. - AMOXICILLIN 875 MG-POTASSIUM CLAVULANATE 125 MG TABLET - FLUTICASONE PROPIONATE 50 MCG/ACTUATION NASAL SPRAY,SUSPENSION Audi Tinoco APRN.[employer] FEEDER Allergies As of Date: 08/12/2024 Noted Allergy Reaction CATS 01/23/2010 DOGS 12/29/2014 14 - Other: See Comments LEXAPRO (ESCITALOPRAM) 08/08/2024 14 - Other: See Comments Comments: Legs numb, dizziness, SEASONAL ALLERGIES 07/08/2014 14 - Other: See Comments Comments: Tree, Grass pollen Spring, Summer, Fall Date Reviewed: 08/12/2024 Reviewed by: Fiona Weston MA - Fully Assessed Reason for Visit: Ear Pain [817] Cmt: right, seen yesterday given amoxicillin, started draining today Primary Visit Diagnosis:Acute otitis media, right [H66.91] Order(s): (more content not included)... Normal [facility] CNOVon 08-11-2024 CNOV Office Visit ([facility] ) FRANCISCO ([id number]) 4 F Date Time Provider Department 08/11/24 2:15 PM ROSSY JOHNSON [facility] During your visit today, we recorded the following information about you: Temperature Pulse Respiration Blood pressure 99.3 degrees 112/minute 18/minute 128/74 Weight 52.7 kg Rossy Johnson, MALACHI.[employer]EDER 08/11/2024 2:08 PM Signed Subjective Ear Problem Associated symptoms include coughing. Pertinent negatives include no diarrhea, sore throat or vomiting. Francisco Fulton Day is a 24 year old female who presents with cough, bilateral ear pressure, and feeling dizzy. She has had some nausea due to dizziness. She was seen here on 08/08 for sore throat and strep test was negative. She states fever at home has been 102 degrees F. She has taken tylenol at home. Review of Systems Constitutional: Positive for fever. Negative for chills and malaise/fatigue. HENT: Positive for congestion and ear pain. Negative for sore throat. Respiratory: Positive for cough, sputum production and shortness of breath. Cardiovascular: Negative for chest pain. Gastrointestinal: Positive for nausea. Negative for diarrhea and vomiting. Musculoskeletal: Negative for myalgias. Neurological: Positive for dizziness. BP 128/74 Pulse 112 Temp 37.4 ?C (99.3 ?F) Resp 18 Wt 52.7 kg (116 lb 2.9 oz) LMP 07/27/2024 (Exact Date) SpO2 99% BMI 21.66 kg/m? PAST MEDICAL HISTORY Diagnosis Date Asthma Eczema Menarche aged 12 yrs Patellar instability of right knee PMH - PAST MEDICAL HISTORY OF hole in lung @ -resolved on it's own PAST SURGICAL HISTORY Procedure Laterality Date ADENOIDECTOMY HX 12/2010 Dr. Ramírez PAST SURGICAL HISTORY OF cyst removal under tongue TONSILLECTOMY HX 12/2010 Dr. Ramírez TOOTH EXTRACTION 2019 wisdom teeth ALLERGIES Cats, Dogs, Lexapro [Escitalopram], and Seasonal Allergies MEDICATIONS albuterol (PROVENTIL) 2.5 mg /3 mL (0.083 %) nebulizer solution Use 3 mL via nebulizer every 4 hours as needed. OVER 5-15 MINUTES. FOR WHEEZING AND SHORTNESS OF BREATH. ProAir RespiClick 90 mcg/actuation breath activated (albuterol sulfate) Inhale 2 Puffs as instructed every 4 hours as needed. fluticasone (FLOVENT HFA) 110 mcg/actuation inhaler Inhale 1 puff twice daily. Via spacer then rinse and gargle with water. FAMILY HISTORY Problem Relation Age of Onset other (Rheumatoid arthrits) Mother Diabetes Mother Ischemic Heart Disease Father Cancer Father Hypertension Maternal Grandmother Diabetes Maternal Grandmother Hypertension Maternal Grandfather Thyroid Maternal Grandfather COPD Maternal Grandfather other (Unknown) Paternal Grandmother other (Unknown) Paternal Grandfather Social History Tobacco Use Smoking status: Never Passive exposure: Yes Smokeless tobacco: Never Tobacco comments: Smokers go outside Vaping Use Vaping status: Never Used Substance Use Topics Alcohol use: Yes Comment: occasioanl Drug use: No Objective Physical Exam Vitals and nursing note reviewed. Constitutional: General: She is not in acute distress. Appearance: Normal appearance. She is not ill-appearing. HENT: Right Ear: Ear canal and external ear normal. Tympanic membrane is erythematous and bulging. Left Ear: Tympanic membrane, ear canal and external ear normal. Nose: Nose normal. Mouth/Throat: Mouth: Mucous membranes are moist. Pharynx: Oropharynx is clear. Uvula midline. No oropharyngeal exudate or posterior oropharyngeal erythema. Cardiovascular: Rate and Rhythm: Normal rate and regular rhythm. Heart sounds: Normal heart sounds. Pulmonary: Effort: Pulmonary effort is normal. No respiratory distress. Breath sounds: Normal breath sounds. No wheezing or rales. Musculoskeletal: Cervical back: Neck supple. Lymphadenopathy: Cervical: No cervical adenopathy. Skin: General: Skin is warm and dry. Findings: No erythema or rash. Neurological: Mental Status: She is alert. ASSESSMENT/PLAN: 1. Other acute nonsuppurative otitis media of right ear, recurrence not specified - ICD9: 381.00, ICD10: H65.191 (primary diagnosis) - Will begin treatment with Amoxicillin for 7 days - Supportive care with plenty of fluids, rest, and analgesia prn. 2. Acute cough - ICD9: 786.2, ICD10: R05.1 - suspect viral. - supportive care - Follow-up with your PCP in 3-5 days if symptoms have not improved or sooner if symptoms worsen - Discussed red flags and need for immediate medical evaluation if any occur. - Discussed supportive care treatment with fluids, rest and analgesia. - Discussed expected course of illness Rossy Johnson APRN.Rossy Hand APRN.CNP 08/11/2024 2:01 PM Signed ASSESSMENT/PLAN: 1. Other acute nonsuppurative otitis media of right ear, recurrence not specified - ICD9: 381.00, ICD10: H65.191 (p (more content not included)... [facility] FRANCISCO SANCHEZ ([id number]) 4 F Date Time Provider Department 08/11/24 DAILY [facility] During your visit today, we recorded the following information about you: Magdaleno Garduno RN 08/11/2024 1:02 PM Signed Mother reports patient was seen in [facility] on 08-08-24 for sore throat. Reports strep was negative. Reports pt is gargling with warm salt water, using throat lozenges, and doing everything EC instructed her to do, but feeling worse now, developed a cough yesterday, and today pt unable to hear out of right ear. No open appts today, but offered appt tomorrow with pcp. Mother states she will discuss with pt, and may take pt back to [facility] today- if not- will call back to schedule appt with pcp. Allergies As of Date: 08/11/2024 Noted Allergy Reaction CATS 01/23/2010 DOGS 12/29/2014 14 - Other: See Comments LEXAPRO (ESCITALOPRAM) 08/08/2024 14 - Other: See Comments Comments: Legs numb, dizziness, SEASONAL ALLERGIES 07/08/2014 14 - Other: See Comments Comments: Tree, Grass pollen Spring, Summer, Fall Date Reviewed: 08/08/2024 Reviewed by: Delisa Arroyo LPN - Fully Assessed Reason for Visit: Patient Update [1234] Prescriptions as of 08/11/2024 - albuterol (PROVENTIL) 2.5 mg /3 mL (0.083 %) nebulizer solution Use 3 mL via nebulizer every 4 hours as needed. OVER 5-15 MINUTES. FOR WHEEZING AND SHORTNESS OF BREATH. - ProAir RespiClick 90 mcg/actuation breath activated (albuterol sulfate) Inhale 2 Puffs as instructed every 4 hours as needed. - fluticasone (FLOVENT HFA) 110 mcg/actuation inhaler Inhale 1 puff twice daily. Via spacer then rinse and gargle with water. 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 Subjective Francisco Fulton Day is a 24 year old female. HPI 24-year-old female presents for sore throat. Patient states she started getting sore throat about 2 days ago. She has had low-grade fevers of 99 ?F at home. She does not really have a cough or congestion. She is reporting that her right ear hurts slightly. No vomiting or diarrhea. Still eating and drinking. No other complaint. PAST MEDICAL HISTORY Diagnosis Date Asthma Eczema Menarche aged 12 yrs Patellar instability of right knee PMH - PAST MEDICAL HISTORY OF hole in lung @ -resolved on it's own PAST SURGICAL HISTORY Procedure Laterality Date ADENOIDECTOMY HX 12/2010 Dr. Ramírez PAST SURGICAL HISTORY OF cyst removal under tongue TONSILLECTOMY HX 12/2010 Dr. Ramírez TOOTH EXTRACTION 2019 wisdom teeth ALLERGIES Cats, Dogs, Lexapro [Escitalopram], and Seasonal Allergies MEDICATIONS albuterol (PROVENTIL) 2.5 mg /3 mL (0.083 %) nebulizer solution Use 3 mL via nebulizer every 4 hours as needed. OVER 5-15 MINUTES. FOR WHEEZING AND SHORTNESS OF BREATH. ProAir RespiClick 90 mcg/actuation breath activated (albuterol sulfate) Inhale 2 Puffs as instructed every 4 hours as needed. fluticasone (FLOVENT HFA) 110 mcg/actuation inhaler Inhale 1 puff twice daily. Via spacer then rinse and gargle with water. FAMILY HISTORY Problem Relation Age of Onset other (Rheumatoid arthrits) Mother Diabetes Mother Ischemic Heart Disease Father Cancer Father Hypertension Maternal Grandmother Diabetes Maternal Grandmother Hypertension Maternal Grandfather Thyroid Maternal Grandfather COPD Maternal Grandfather other (Unknown) Paternal Grandmother other (Unknown) Paternal Grandfather Social History Tobacco Use Smoking status: Never Passive exposure: Yes Smokeless tobacco: Never Tobacco comments: Smokers go outside Vaping Use Vaping status: Never Used Substance Use Topics Alcohol use: Yes Comment: occasioanl Drug use: No Review of Systems Constitutional: Positive for fever. Negative for chills. HENT: Positive for ear pain and sore throat. Negative for congestion. Respiratory: Negative for cough and shortness of breath. Cardiovascular: Negative for chest pain. Gastrointestinal: Negative for diarrhea and vomiting. Objective BP 133/94 Pulse (!) 121 Temp 36.9 ?C (98.4 ?F) Resp 20 Wt 53 kg (116 lb 13.5 oz) LMP 07/27/2024 (Exact Date) SpO2 99% BMI 21.78 kg/m? Physical Exam Vitals and nursing note reviewed. Constitutional: General: She is not in acute distress. Appearance: Normal appearance. She is not toxic-appearing. HENT: Right Ear: Tympanic membrane and ear canal normal. Left Ear: Tympanic membrane and ear canal normal. Nose: Nose normal. Mouth/Throat: Mouth: Mucous membranes are moist. Pharynx: Uvula midline. Oropharyngeal exudate present. Tonsils: 0 on the right. 0 on the left. Comments: Right-sided posterior oropharyngeal exudate. Tonsillectomy present. Uvula midline. Handling secretions. Eyes: Conjunctiva/sclera: Conjunctivae normal. Cardiovascular: Rate and Rhythm: Normal rate and regular rhythm. Pulmonary: Effort: Pulmonary effort is normal. Breath sounds: Normal breath sounds. Skin: General: Skin is warm and dry. Neurological: Mental Status: She is alert. Assessment and Plan ASSESSMENT/PLAN: 1. Sore throat - ICD9: 462, ICD10: J02.9 - suspect viral - Group A strep molecular testing negative - Discussed supportive care treatment with fluids, rest and analgesia. - The patient may also use warm salt water gargles, throat lozenges and/or OTC throat spray as needed. -Follow-up in 3 to 5 days if symptoms persist - STREP A MOLECULAR (POC) Diagnosis and treatment plan were discussed and questions were answered to the patient's satisfaction. Pt acknowledged understanding of concepts and follow up plan. Specific signs and symptoms that would indicate the need for higher level of care were discussed in detail warranting prompt ER evaluation. CHONG Brown Allergies As of Date: 08/08/2024 Noted Allergy Reaction CATS 01/23/2010 DOGS 12/29/2014 14 - Other: See Comments LEXAPRO (ESCITALOPRAM) 08/08/2024 14 - Other: See Comments Comments: Legs numb, dizziness, SEASONAL ALLERGIES 07/08/2014 14 - Other: See Comments Comments: Tree, Grass pollen Spring, Summer, Fall Date Reviewed: 08/08/2024 Reviewed by: Delisa Arroyo LPN - Fully Assessed (more content not included)... Normal [facility] STREP A MOLECULAR (POC)on Procedural Control Valid [facility] Strep A (POCT) Negative Negative [facility] Basic Metabolic Profile (BMP )on 07-21-2024 BUN/CRE 9.4 RATIO Low 10-20 [facility] Comment on above: Performed By: #### L 500.2500, L100.0100 #### [facility] [address] [place], [address] CA,Total 9.2 mg/dL Normal 8.5-10.1 [facility] Comment on above: Performed By: #### L 500.2500, L100.0100 #### [facility] [address] [place], [address] Chloride [Moles/Vol] 106 mmol/L Normal 98-107 [facility] Comment on above: Performed By: #### L 500.2500, L100.0100 #### [facility] [address] [place], [address] CO2 [Moles/Vol] 22.0 mmol/L Normal 21.0-32.0 [facility] Comment on above: Performed By: #### L 500.2500, L100.0100 #### [facility] [address] [place], [address] Creatinine [Mass/Vol] 0.64 mg/dL Normal 0.55-1.02 [facility] Comment on above: Result Comment: The validity of the calculated GFR GFRAA in patients over 70 years has not been determined. Clinical correlation is essential. Performed By: #### L 500.2500, L100.0100 #### [facility] [address] [place], [address] ECRCL 109.97 ml/min Normal [facility] Comment on above: Performed By: #### L 500.2500, L100.0100 #### [facility] [address] [place], [address] EST GFR - AA 150 mL/min Normal >60 [facility] Comment on above: Result Comment: Afri can [place] GFR Calc Performed By: #### L 500.2500, L100.0100 #### [facility] [address] [place], [address] GAP 9 Normal 5-15 [facility] Comment on above: Performed By: #### L 500.2500, L100.0100 #### [facility] [address] [place], [address] GFR/1.73 sq M.predicted among non-blacks MDRD (S/P/Bld) [Vol rate/Area] 124 mL/min/{1.73_m2} Normal >60 [facility] Comment on above: Result Comment: Non- GFR Calc Performed By: #### L 500.2500, L100.0100 #### [facility] [address] [place], [address] Glucose [Mass/Vol] 101 mg/dL Normal 74-106 [facility] Comment on above: Result Comment: Fast ing Glucose result from 100 to 125 mg/dL suggests IMPAIRED HOMEOSTASIS per A.D.A. criteria. Performed By: #### L 500.2500, L100.0100 #### [facility] [address] [place], [address] Potassium [Moles/Vol] 3.7 mmol/L Normal 3.5-5.1 [facility] Comment on above: Performed By: #### L 500.2500, L100.0100 #### [facility] [address] [place], [address] Sodium [Moles/Vol] 137 mmol/L Normal 136-145 [place] [facility] Comment on above: Performed By: #### L 500.2500, L100.0100 #### [facility] [address] [place], [address] Urea nitrogen [Mass/Vol] 6 mg/dL Low 7-18 [facility] Comment on above: Performed By: #### L 500.2500, L100.0100 #### [facility] [address] [place], [address] CBC W/Diff, Automatedon 10-2 Absolute Lymph 2.74 X10 3/uL Normal 0.83-4.51 [facility] Comment on above: Performed By: #### L 500.2500, L100.0100 #### [facility] [address] [place], [address] Absolute Neut 6.8 X10 3/uL Normal 2.0-7.7 [facility] Comment on above: Performed By: #### L 500.2500, L100.0100 #### [facility] [address] [place], [address] Basophils/100 WBC (Bld) 0.6 % Normal 0-1 [facility] Comment on above: Performed By: #### L 500.2500, L100.0100 #### [facility] [address] [place], [address] Eosinophils/100 WBC (Bld) 1.2 % Normal 0-5 [facility] Comment on above: Performed By: #### L 500.2500, L100.0100 #### [facility] [address] [place], [address] Erythrocyte distribution width (RBC) [Ratio] 11.9 % Normal 11.6-14.6 [facility] Comment on above: Performed By: #### L 500.2500, L100.0100 #### [facility] [address] [place], [address] Hematocrit (Bld) [Volume fraction] 39.8 % Normal 37-47 [facility] Comment on above: Performed By: #### L 500.2500, L100.0100 #### [facility] [address] [place], [address] Hemoglobin (Bld) [Mass/Vol] 13.4 g/dL Normal 12.0-15.0 [facility] Comment on above: Performed By: #### L 500.2500, L100.0100 #### [facility] [address] [place], [address] IG% 0.500 Normal 0.0-0.9 [facility] Comment on above: Result Comment: IG% - Immature Granulocytes (promyelocytes, myelocytes and metamyelocytes) > 1% indicates that a LEFT SHIFT is Present. Performed By: #### L 500.2500, L100.0100 #### [facility] [address] [place], [address] Lymphocytes/100 WBC (Bld) 26.7 % Normal 19-41 [facility] Comment on above: Performed By: #### L 500.2500, L100.0100 #### [facility] [address] [place], [address] MCH (RBC) [Entitic mass] 30.2 pg Normal 27.0-32.0 [facility] Comment on above: Performed By: #### L 500.2500, L100.0100 #### [facility] [address] [place], [address] MCHC (RBC) [Mass/Vol] 33.7 g/dL Normal 32-36 [facility] Comment on above: Performed By: #### L 500.2500, L100.0100 #### [facility] [address] [place], [address] MCV (RBC) [Entitic vol] 89.6 fL Normal 81-99 [facility] Comment on above: Performed By: #### L 500.2500, L100.0100 #### [facility] [address] [place], [address] Monocytes/100 WBC (Bld) 5.0 % Normal 0-10 [facility] Comment on above: Performed By: #### L 500.2500, L100.0100 #### [facility] [address] [place], [address] Neutrophils/100 WBC (Bld) 66.0 % Normal 47-70 [facility] Comment on above: Performed By: #### L 500.2500, L100.0100 #### [facility] [address] [place], [address] Nucleated RBC (Bld) [#/Vol] 0 10*3/uL Normal 0-5 [facility] Comment on above: Performed By: #### L 500.2500, L100.0100 #### [facility] [address] [place], [address] Platelet mean volume (Bld) [Entitic vol] 8.9 fL Normal 6.2-12.0 [facility] Comment on above: Performed By: #### L 500.2500, L100.0100 #### [facility] [address] [place], [address] Platelets (Bld) [#/Vol] 425 10*3/uL Normal 150-450 [facility] Comment on above: Performed By: #### L 500.2500, L100.0100 #### [facility] [address] [place], [address] RBC (Bld) [#/Vol] 4.44 10*6/uL Normal 4.2-5.4 [facility] Comment on above: Performed By: #### L 500.2500, L100.0100 #### [facility] [address] [place], [address] RDW SD 39.1 fl Normal 35.1-43.9 [facility] Comment on above: Performed By: #### L 500.2500, L100.0100 #### [facility] [address] [place], [address] WBC (Bld) [#/Vol] 10.3 10*3/uL Normal 4.4-11.0 [facility] Comment on above: Performed By: #### L 500.2500, L100.0100 #### [facility] [address] [place], [address] Alessandra 07-21-2024 ELI Telephone (FAMWS) FRANCISCO SANCHEZ ([id number]) 4 F Date Time Provider Department 07/21/24 [facility] your visit today, we recorded the following information about you: Amarjit Christian LPN 07/21/2024 3:35 PM Signed ----- Message from Fatuma Jackson APRN.LUDY sent at 07/21/2024 3:21 PM EDT ----- Blood work is in acceptable ranges. ESTEBAN Hull Laurie Lynn, LPN 07/21/2024 3:36 PM Signed 1st attempt to reach pt by phone without success. No voicemail set up.. Try later. ALFONSO Smith Laurie Lynn, LPN 07/23/2024 9:09 AM Signed Pt viewed results in [employer]. Amarjit Christian LPN Allergies As of Date: 07/21/2024 Noted Allergy Reaction CATS 01/23/2010 DOGS 12/29/2014 14 - Other: See Comments SEASONAL ALLERGIES 07/08/2014 14 - Other: See Comments Comments: Tree, Grass pollen Spring, Summer, Fall Date Reviewed: 07/20/2024 Reviewed by: Kaylee Rodriguez LPN - Fully Assessed Reason for Visit: Results [95] Prescriptions as of 07/23/2024 - albuterol (PROVENTIL) 2.5 mg /3 mL (0.083 %) nebulizer solution Use 3 mL via nebulizer every 4 hours as needed. OVER 5-15 MINUTES. FOR WHEEZING AND SHORTNESS OF BREATH. - ProAir RespiClick 90 mcg/actuation breath activated (albuterol sulfate) Inhale 2 Puffs as instructed every 4 hours as needed. - escitalopram oxalate (LEXAPRO) 10 mg tablet Take 1 tablet by mouth once daily. - fluticasone (FLOVENT HFA) 110 mcg/actuation inhaler Inhale 1 puff twice daily. Via spacer then rinse and gargle with water. 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 Gurjit Vega MD Status:DEP ER Location: ED HPI History of Present Illness Chief Complaint: Dizziness Informant: patient and parent Narrative Narrative: Patient is a 23-year-old female with past medical history of anxiety depression and asthma. She states she started Lexapro today and after taking it began to feel lightheaded and shaky and developed bouts of nausea. She states this is the only new medication introduced into her system and that she denies any type of recently stopped medication to suggest withdrawal. She states that she is waited hours for the symptoms to resolve and they have not done so and therefore she comes to the hospital for evaluation. She states that despite the nausea there is been no bouts of vomiting and she denies any history of significant bleeding or illicit drug use [facility] Medical History Depression Anxiety Asthma Home Medications ???Medication ???Instructions ???Recorded ???Last Taken ???Type fluticasone propionate 44 2 puff inhalation PRN PRN Sob /Or 07/01/15 Unknown History mcg/actuation HFA aerosol inhaler Wheezing (Flovent HFA) amoxicillin 500 mg capsule 500 mg PO TID 10 days #30 caps 11/19/21 Unknown Rx fluticasone propionate 50 1 spray intranasal DAILY #16 grams 11/19/21 Unknown Rx mcg/actuation nasal spray,suspension (Flonase Allergy Relief) escitalopram oxalate 10 mg tablet 10 mg PO DAILY 07/21/24 Unknown History ondansetron 4 mg disintegrating 4 mg PO TID PRN nausea and 07/21/24 Unknown Rx tablet vomiting #21 tabs Allergy/AdvReac Type Severity Reaction Status Date / Time No Known Allergies Allergy Verified 07/21/24 21:25 Surgical History History of tonsillectomy and adenoidectomy Social History Smoking Status: Never smoker ROS ROS ED Constitutional Constitutional ED: Denies chills or fever(s) Eyes Eyes: Denies blurry vision or change in vision ENT ENT ED: Denies sore throat Cardiovascular Cardiovascular: Reports palpitations and racing heartbeat; Denies chest pain Respiratory/Chest Respiratory/Chest: Denies cough or dyspnea Gastrointestinal Gastrointestinal: Reports nausea; Denies abdominal pain, diarrhea or vomiting Genitourinary Genitourinary ED: Denies dysuria Musculoskeletal Musculoskeletal: Denies myalgias Integumentary Denies rash Neurologic Neurologic: Reports other Details: Positive dizziness ; Denies headache(s) Psychiatric Psychiatric: Reports anxiety and depression; Denies suicidal ideation or suicidal thoughts Hematologic/Lymphatic Hematologic/Lymphatic : Denies easy bleeding or easy bruising EXAM Physical Exam Const Vital Signs: 07/21/24 21:25 07/21/24 22:59 07/21/24 23:00 Temperature 97.2 F L 97.8 F Temperature Source Temporal Pulse Rate 116 H 89 Respiratory Rate 20 H 16 Blood Pressure 136/94 H 124/79 H Blood Pressure Mean 108 94 Pulse Ox 100 98 98 Oxygen Delivery Method Room Air Room Air Positive well nourished and well developed General Appearance ED: well developed; Negative for pallor HEENT Reports moist mucous membranes HEENT Narrative: Normocephalic atraumatic No signs of infection noted in the posterior pharynx Eyes EOMs intact bilaterally Eyes Narrative: Pupils are dilated and slightly sluggish to respond to light Neck supple Neck Narrative: No nuchal rigidity or meningeal signs Resp normal respiratory effort and clear to auscultation bilaterally Cardio regular rhythm Rate: tachycardic and other Other Details: Slightly tachycardic rate with regular rhythm No murmurs rubs or gallop Radial and carotid pulses are equal and symmetric GI normal to inspection, nondistended, normoactive bowel sounds, non-tender, non-distended and no masses Auscultation: normoactive bowel sounds Palpation: soft Extremity normal to inspection Extremity Narrative: No asymmetric edema no pitting edema negative Homans' sign bilaterally Neuro oriented x3, CN's II-XII intact bilaterally and no sensory deficits noted Neuro Narrative: Cranial nerves II through XII are grossly intact there are no focal neurologic deficits No pronator drift no dysmetria no truncal ataxia No nystagmus noted GCS of 15 NIH stroke scale score of 0 Sensorium / Orientation: alert Motor Exam: strength 5/5 throughout Psych mental status grossly normal Skin no rashes or lesions noted, no wou (more content not included)... Normal [facility] CBC W Auto Differential pane l (Bld)on 07-20-2024 Basophils (Bld) [#/Vol] 0.04 10*3/uL Normal <0.11 [facility] Comment on above: Order Comment: Speci men Type: BLOOD SPECIMENOrdering Facility: Address: [address] [place] [address] Performed By: #### 4 537-7, 31350-3 ####[facility] [id number] [place] [address] [place] Basophils/100 WBC (Bld) 0.4 % Normal [facility] Comment on above: Order Comment: Speci men Type: BLOOD SPECIMENOrdering Facility: Address: [address] [place] [address] Performed By: #### 4 537-7, 09481-7 ####[facility] [id number] [place] [address] [place] Differential cell count method Nom (Bld) Auto Normal [facility] Comment on above: Order Comment: Speci men Type: BLOOD SPECIMENOrdering Facility: Address: [address] [place] [address] Performed By: #### 4 537-7, 69378-8 ####[facility] [id number] [place] [address] [place] Eosinophils (Bld) [#/Vol] 0.17 10*3/uL Normal <0.46 [facility] Comment on above: Order Comment: Speci men Type: BLOOD SPECIMENOrdering Facility: Address: [address] [place] [address] Performed By: #### 4 537-7, 67185-2 ####[facility] [id number] [place] [address] [place] Eosinophils/100 WBC (Bld) 1.6 % Normal [facility] Comment on above: Order Comment: Speci men Type: BLOOD SPECIMENOrdering Facility: Address: [address] [place] [address] Performed By: #### 4 537-7, 37503-5 ####[facility]IA [id number] [place] [address] [place] Erythrocyte distribution width (RBC) [Ratio] 12.3 % Normal 11.5-15.0 [facility] Comment on above: Order Comment: Speci men Type: BLOOD SPECIMENOrdering Facility: Address: [address] [place] [address] Performed By: #### 4 537-7, 73120-7 ####[facility] [id number] [place] [address] [place] Hematocrit (Bld) [Volume fraction] 40.8 % Normal 36.0-46.0 [facility] Comment on above: Order Comment: Speci men Type: BLOOD SPECIMENOrdering Facility: Address: [address] [place] [address] Performed By: #### 4 537-7, 68780-6 ####[facility] [id number] [place] [address] [place] Hemoglobin (Bld) [Mass/Vol] 13.1 g/dL Normal 11.5-15.5 [facility] Comment on above: Order Comment: Speci men Type: BLOOD SPECIMENOrdering Facility: Address: [address] [place] [address] Performed By: #### 4 537-7, 04274-9 ####[facility] [id number] [place] [address] [place] Immature granulocytes (Bld) [#/Vol] 0.05 10*3/uL Normal <0.10 [facility] Comment on above: Order Comment: Speci men Type: BLOOD SPECIMENOrdering Facility: Address: [address] [place] [address] Performed By: #### 4 537-7, 02933-2 ####[facility] [id number] [place] [address] [place] Immature granulocytes/100 WBC (Bld) 0.5 % Normal [facility] Comment on above: Order Comment: Speci men Type: BLOOD SPECIMENOrdering Facility: Address: [address] [place] [address] Performed By: #### 4 537-7, 31495-6 ####[facility] [id number] [place] [address] [place] Lymphocytes (Bld) [#/Vol] 2.17 10*3/uL Normal 1.00-4.00 [facility] Comment on above: Order Comment: Speci men Type: BLOOD SPECIMENOrdering Facility: Address: [address] [place] [address] Performed By: #### 4 537-7, 15942-7 ####[facility]IA [id number] [place] [address] [place] Lymphocytes/100 WBC (Bld) 20.6 % Normal [facility] Comment on above: Order Comment: Speci men Type: BLOOD SPECIMENOrdering Facility: Address: [address] [place] [address] Performed By: #### 4 537-7, 93841-7 ####[facility]IA [id number] [place] [address] [place] MCH (RBC) [Entitic mass] 30.1 pg Normal 26.0-34.0 [facility] Comment on above: Order Comment: Speci men Type: BLOOD SPECIMENOrdering Facility: Address: [address] [place] [address] Performed By: #### 4 537-7, 59801-9 ####[facility] LABIA [id number] [place] [address] [place] MCHC (RBC) [Mass/Vol] 32.1 g/dL Normal 30.5-36.0 [facility] Comment on above: Order Comment: Speci men Type: BLOOD SPECIMENOrdering Facility: Address: [address] [place] [address] Performed By: #### 4 537-7, 94039-9 ####[facility]IA [id number] [place] [address] [place] MCV (RBC) [Entitic vol] 93.8 fL Normal 80.0-100.0 [facility] Comment on above: Order Comment: Speci men Type: BLOOD SPECIMENOrdering Facility: Address: [address] [place] [address] Performed By: #### 4 537-7, 71059-9 ####[facility]CLIA [id number] [place] [address] [place] Monocytes (Bld) [#/Vol] 0.71 10*3/uL Normal <0.87 [facility] Comment on above: Order Comment: Speci men Type: BLOOD SPECIMENOrdering Facility: Address: [address] [place] [address] Performed By: #### 4 537-7, 68757-6 ####[facility]CLIA [id number] [place] [address] [place] Monocytes/100 WBC (Bld) 6.7 % Normal [facility] Comment on above: Order Comment: Speci men Type: BLOOD SPECIMENOrdering Facility: Address: [address] [place] [address] Performed By: #### 4 537-7, 88561-5 ####[facility]CL[facility] [id number] [place] [address] [place] Neutrophils (Bld) [#/Vol] 7.40 10*3/uL Normal 1.45-7.50 [facility] Comment on above: Order Comment: Speci men Type: BLOOD SPECIMENOrdering Facility: Address: [address] [place] [address] Performed By: #### 4 537-7, 29032-5 ####[facility]CL[facility] [id number] [place] [address] [place] Neutrophils/100 WBC (Bld) 70.2 % Normal [facility] Comment on above: Order Comment: Speci men Type: BLOOD SPECIMENOrdering Facility: Address: [address] [place] [address] Performed By: #### 4 537-7, 51282-7 ####[facility]CLIA [id number] [place] [address] [place] Nucleated RBC (Bld) [#/Vol] 10*3/uL Normal <0.01 [facility] Comment on above: Order Comment: Speci men Type: BLOOD SPECIMENOrdering Facility: Address: [address] [place] [address] Performed By: #### 4 537-7, 15091-8 ####[facility]CL[facility] [id number] [place] [address] [place] Nucleated RBC/100 WBC (Bld) [Ratio] 0.0 /100 WBC Normal [facility] Comment on above: Order Comment: Speci men Type: BLOOD SPECIMENOrdering Facility: Address: [address] [place] [address] Performed By: #### 4 537-7, 66740-1 ####[facility]IA [id number] [place] [address] [place] Platelet mean volume (Bld) [Entitic vol] 9.7 fL Normal 9.0-12.7 [facility] Comment on above: Order Comment: Speci men Type: BLOOD SPECIMENOrdering Facility: Address: [address] [place] [address] Performed By: #### 4 537-7, 24030-0 ####[facility]IA [id number] [place] [address] [place] Platelets (Bld) [#/Vol] 415 10*3/uL High 150-400 [facility] Comment on above: Order Comment: Speci men Type: BLOOD SPECIMENOrdering Facility: Address: [address] [place] [address] Performed By: #### 4 537-7, 84275-6 ####[facility]CLIA [id number] [place] [address] [place] RBC (Bld) [#/Vol] 4.35 10*6/uL Normal 3.90-5.20 [facility] Comment on above: Order Comment: Speci men Type: BLOOD SPECIMENOrdering Facility: Address: [address] [place] [address] Performed By: #### 4 537-7, 04673-3 ####[facility]CLIA [id number] [place] [address] [place] WBC (Bld) [#/Vol] 10.54 10*3/uL Normal 3.70-11.00 [facility] Comment on above: Order Comment: Speci men Type: BLOOD SPECIMENOrdering Facility: Address: [address] [place] [address] [place] [address] Performed By: #### 4 537-7, 00186-5 ####[facility]CLIA [id number] [address] [place] CNOVon 07-20-2024 CNOV Office Visit (RYANWS ) FRANCISCO SANCHEZ ([id number]) 4 F Date Time Provider Department 07/20/24 2:00 PM FATUMA JACKSON During your visit today, we recorded the following information about you: Pulse Respiration Blood pressure Weight 98/minute 18/minute 122/74 53.5 kg Height 1.56 m Ftauma Jackson APRN.[employer] 07/20/2024 3:29 PM Signed 07/20/2024 Patient presents [...] No history of dysuria, frequency or incontinence HEADING MAKER: Negative for abnormal vaginal bleeding, abnormal vaginal discharge MUSCULOSKELETAL: See HPI SKIN: See HPI PSYCH: See HPI HEMATOLOGY/LYMPHOLOGY : Negative for prolonged bleeding, or swollen nodes ENDOCRINE: Negative for cold or heat intolerance, polyuria, polydipsia and goiter NEURO: No history of syncope, paralysis, seizures or tremors All other reviewed and negative other than HPI. OBJECTIVE: BP 122/74 Pulse 98 Resp 18 Ht 156 cm (5' 1.42) Wt 53.5 kg (117 lb 15.1 oz) [...] done Influenza Vaccine(1) due on 05/24/2024 Covid-19 Vaccine(3 2023- season) due on 05/24/2024 DTaP,Tdap,Td Vaccine(7 - Td or Tdap) due on 2024 Chlamydia Screening (18 (more content not included)... Normal [facility] CRP SerPl-mCncon 07-20-2024 CRP [Mass/Vol] mg/L Normal <0.9 [facility] Comment on above: Order Comment: Speci men Type: BLOOD SPECIMENOrdering Facility: Address: [address] [address] Performed By: #### 1 988-5, 82217-8, 92922-8, 3016-3 ####[facility] LABCLIA [id number] [place] [id number] [place] Comprehensive metabolic 2000 panelon 07-20-2024 Albumin [Mass/Vol] 4.8 g/dL Normal 3.9-4.9 [facility] Comment on above: Order Comment: Speci men Type: BLOOD SPECIMENOrdering Facility: Address: [address] [place] [address] Performed By: #### 1 988-5, 01210-3, 59551-3, 3016-3 ####[facility]CLIA [id number] [place] [address] [place] ALP [Catalytic activity/Vol] 57 U/L Normal 34-123 [facility] Comment on above: Order Comment: Speci men Type: BLOOD SPECIMENOrdering Facility: Address: [address] [place] [address] Performed By: #### 1 988-5, 34490-7, 12600-4, 3016-3 ####[facility] LABIA [id number] [place] [address] [place] ALT [Catalytic activity/Vol] 12 U/L Normal 7-38 [facility] Comment on above: Order Comment: Speci men Type: BLOOD SPECIMENOrdering Facility: Address: [address] [place] [address] Performed By: #### 1 988-5, 12131-5, 19511-2, 3016-3 ####[facility] LABIA [id number] [place] [address] [place] Anion gap [Moles/Vol] 14 mmol/L Normal 8-15 [facility] Comment on above: Order Comment: Speci men Type: BLOOD SPECIMENOrdering Facility: Address: [address] [place] [address] Performed By: #### 1 988-5, 76715-6, 27233-5, 3016-3 ####[facility]CLIA [id number] [place] [address] [place] AST [Catalytic activity/Vol] 16 U/L Normal 13-35 [facility] Comment on above: Order Comment: Speci men Type: BLOOD SPECIMENOrdering Facility: Address: [address] [place] [address] Performed By: #### 1 988-5, 10238-2, 77902-3, 3016-3 ####[facility]CLIA [id number] [place] [address] [place] Bilirubin [Mass/Vol] 0.2 mg/dL Normal 0.2-1.3 [facility] Comment on above: Order Comment: Speci men Type: BLOOD SPECIMENOrdering Facility: Address: [address] [place] [address] Performed By: #### 1 988-5, 24107-9, 50884-3, 3016-3 ####[facility]CLIA [id number] [place] [address] [place] Calcium [Mass/Vol] 9.5 mg/dL Normal 8.5-10.2 [facility] Comment on above: Order Comment: Speci men Type: BLOOD SPECIMENOrdering Facility: Address: [address] [place] [address] Performed By: #### 1 988-5, 01699-7, 28229-6, 3016-3 ####[facility]CLIA [id number] [place] [address] [place] Chloride [Moles/Vol] 104 mmol/L Normal 98-107 [facility] Comment on above: Order Comment: Speci men Type: BLOOD SPECIMENOrdering Facility: Address: [address] [place], [place] [address] Performed By: #### 1 988-5, 24096-0, 32585-1, 3016-3 ####[facility] LABIA [id number] [place] [id number] [place] CO2 [Moles/Vol] 20 mmol/L Low 22-30 [facility] Comment on above: Order Comment: Speci men Type: BLOOD SPECIMENOrdering Facility: Address: [address] [place] [address] Performed By: #### 1 988-5, 37970-9, 86997-7, 3016-3 ####[facility] LABIA [id number] [place] [address] [place] Creatinine [Mass/Vol] 0.65 mg/dL Normal 0.58-0.96 [facility] Comment on above: Order Comment: Speci men Type: BLOOD SPECIMENOrdering Facility: Address: [address] [place] [address] Performed By: #### 1 988-5, 76458-6, 22142-3, 3016-3 ####[facility] LABIA [id number] [place] [address] [place] Creatinine and Glomerular filtration rate.predicted panel (S/P/Bld) 129 mL/min/1.73m??? Normal >=60 [facility] Comment on above: Order Comment: Speci men Type: BLOOD SPECIMENOrdering Facility: Address: [address] [place] [address] Result Comment: Darcy mated Glomerular Filtration Rate (eGFR) is calculated using the 2020 CKD-EPI creatinine equation. This equation utilizes serum creatinine, sex, and age as parameters. The creatinine assay has traceable calibration to isotope dilution-mass spectrometry. Refer to KDIGO guidelines for clinical interpretation. In patients with unstable renal function, e.g. those with acute kidney injury, the eGFR may not accurately reflect actual GFR. Performed By: #### 1 988-5, 68023-2, 18897-9, 3016-3 ####[facility] LABCLIA [id number] [place] [id number] [place] Glucose [Mass/Vol] 93 mg/dL Normal 74-99 [facility] Comment on above: Order Comment: Speci men Type: BLOOD SPECIMENOrdering Facility: Address: [address] [place] [address] Result Comment: The [place] Diabetes Association (ADA) provides guidance for cutoff values for fasting glucose and random glucose. The ADA defines fasting as no caloric intake for at least 8 hours. Fasting plasma glucose results between 100 to 125 mg/dL indicate increased risk for diabetes (prediabetes). Fasting plasma glucose results greater than or equal to 126 mg/dL meet the criteria for diagnosis of diabetes. In the absence of unequivocal hyperglycemia, results should be confirmed by repeat testing. In a patient with classic symptoms of hyperglycemia or hyperglycemic crisis, random plasma glucose results greater than or equal to 200 mg/dL meet the criteria for diagnosis of diabetes. Reference: Standards of Medical Care in Diabetes 2016, [place] [employer] Association. Diabetes Care. 2016.39(Suppl 1). Performed By: #### 1 988-5, 26982-6, 48637-1, 3016-3 ####[facility] LABIA [id number] [place] [id number] [place] Potassium [Moles/Vol] 4.1 mmol/L Normal 3.7-5.1 [facility] Comment on above: Order Comment: Speci men Type: BLOOD SPECIMENOrdering Facility: Address: [address] [place] [address] Performed By: #### 1 988-5, 19799-9, 08524-8, 3016-3 ####[facility] LABIA [id number] [place] [address] [place] Protein [Mass/Vol] 7.2 g/dL Normal 6.3-8.0 [facility] Comment on above: Order Comment: Speci men Type: BLOOD SPECIMENOrdering Facility: Address: [address] [place] [address] Performed By: #### 1 988-5, 70306-0, 51663-8, 3016-3 ####[facility] LABCLIA [id number] [place] [id number] [place] Sodium [Moles/Vol] 138 mmol/L Normal 136-144 [facility] Comment on above: Order Comment: Speci men Type: BLOOD SPECIMENOrdering Facility: Address: [address] [place] [address] Performed By: #### 1 988-5, 18333-6, 52223-9, 3016-3 ####[facility] LABCLIA [id number] [place] [address] [place] Urea nitrogen [Mass/Vol] 6 mg/dL Low 7-21 [facility] Comment on above: Order Comment: Speci men Type: BLOOD SPECIMENOrdering Facility: Address: [address] [place] [address] Performed By: #### 1 988-5, 14849-6, 98835-8, 3016-3 ####[facility] LABCLIA [id number] [place] [address] [place] Cyclic citrullinated peptide IgG Qnon 07-20-2024 CCP ANTIBODY IGG QUALITATIVE Negative Normal Negative [facility] Comment on above: Order Comment: Speci men Type: BLOOD SPECIMENOrdering Facility: Address: [address] [place] [address] Performed By: #### 3 3935-8 ####[facility] LABCLIA [id number] [place] [id number] [place] ESR Westergren method (Bld) [Velocity]on 07-20-2024 ESR (Bld) [Velocity] 2 mm/h Normal 0-20 [facility] Comment on above: Order Comment: Speci men Type: BLOOD SPECIMENOrdering Facility: Address: [address] [place] [address] Performed By: #### 4 537-7, 05092-0 ####[facility] LABCLIA [id number] [place] [address] [place] HCV Ab Ser Qlon 07-20-2024 HCV Ab Ql (S) Negative Normal Negative [facility] Comment on above: Order Comment: Speci men Type: BLOOD SPECIMENOrdering Facility: Address: [address] [place] [address] Result Comment: The result suggests no evidence of active infection with Hepatitis C virus. Should recent infection be suspected, repeat testing may be considered 4-6 weeks after this draw. Performed By: #### 1 6128-1 ####[facility] LABCLIA [id number] [place] [address] [place] HIV 1+2 Ab IA Qlon HIV 1 and 2 Ab IA.rapid Nom (S/P/Bld) Normal [facility] Comment on above: Order Comment: Speci men Type: BLOOD SPECIMENOrdering Facility: Address: [address] [place] [address] Result Comment: Test not indicated. Performed By: #### 3 1201-7 ####[facility] LABCLIA [id number] [place] [address] [place] HIV 1+2 Ab+HIV1 p24 Ag IA Ql Non-Reactive Normal Nonreactive [facility] Comment on above: Order Comment: Speci men Type: BLOOD SPECIMENOrdering Facility: Address: [address] [place] [address] Performed By: #### 3 1201-7 ####[facility] LABCLIA [id number] [place] [address] [place] HIV immunoassay testing algorithm interpretation (S/P/Bld) [Interp] Normal [facility] Comment on above: Order Comment: Speci men Type: BLOOD SPECIMENOrdering Facility: Address: [address] [place] [address] Result Comment: No e vidence of HIV-1 or HIV-2 infection. Should recent infection be suspected, repeat testing may be considered 2-3 weeks after this draw. [place] Rev. Code 3701.243(E): This information has been [...] or diagnoses. Performed By: #### 3 1201-7 ####[facility] [id number] [place] [address] [place] Rheumatoid fact SerPl-aCncon 07-20-2024 Rheumatoid factor Qn [IU]/mL Normal <16 [facility] Comment on above: Order Comment: Speci men Type: BLOOD SPECIMENOrdering Facility: Address: [address] [place] [address] Performed By: #### 1 988-5, 85103-0, 08744-4, 3016-3 ####[facility] [id number] [place] [address] [place] TSH SerPl-aCncon 07-20-2024 TSH Qn 2.360 m[IU]/L Normal 0.270-4.200 [facility] Comment on above: Order Comment: Speci men Type: BLOOD SPECIMENOrdering Facility: Address: [address] [place] [address] Result Comment: If t he patient is , TSH reference range varies by gestational period: First Trimester (weeks 9-12): 0.180-2.990 mIU/L Second Trimester: 0.110-3.980 mIU/L Third Trimester: 0.480-4.710 mIU/L Vipin Rod et al. A Practical Approach for the Verifications and Determination of Site- and Trimester-Specific Reference Intervals for Thyroid Function tests in . Thyroid, 2019:29:3:412-420. Stefano E, et al. 2017 Guidelines of the [place] Thyroid Association for the Diagnosis and Management of Thyroid Disease during and the . Thyroid, 2017:27:3:315-389. Performed By: #### 1 988-5, 11362-3, 04483-8, 3016-3 ####[facility] LABCLIA [id number] [place] [address] [place] cCP IgG SerPl-aCncon 28-2 024 Cyclic citrullinated peptide IgG Qn <15 Normal <20 [facility] Comment on above: Order Comment: Speci men Type: BLOOD SPECIMENOrdering Facility: Address: [address] [place] [address] Performed By: #### 3 3935-8 ####[facility] LABCLIA [id number] [place] [address] [place] AMYLASE BLDon 04-13-2022 Amylase [Catalytic activity/Vol] 38 U/L 30 - 104 U/L [facility] CBC W Auto Differential pane l (Bld)on 04-13-2022 Abs Immature Gran 0.03 k/uL <0.10 k/uL [facility] Basophils (Bld) [#/Vol] 0.05 10*3/uL <0.11 k/uL [facility] Basophils/100 WBC (Bld) 0.7 % [facility] Differential cell count method Nom (Bld) Auto [facility] Eosinophils (Bld) [#/Vol] 0.38 10*3/uL <0.46 k/uL [facility] Eosinophils/100 WBC (Bld) 5.6 % [facility] Erythrocyte distribution width (RBC) [Ratio] 12.5 % 11.5 - 15.0 % [facility] Hematocrit (Bld) [Volume fraction] 40.9 % 36.0 - 46.0 % [facility] Hemoglobin (Bld) [Mass/Vol] 13.2 g/dL 11.5 - 15.5 g/dL [facility] Immature Gran % 0.4 % [facility] Lymphocytes (Bld) [#/Vol] 2.37 10*3/uL 1.00 - 4.00 k/uL [facility] Lymphocytes/100 WBC (Bld) 35.1 % [facility] MCH (RBC) [Entitic mass] 29.4 pg 26.0 - 34.0 pg [facility] MCHC (RBC) [Mass/Vol] 32.3 g/dL 30.5 - 36.0 g/dL [facility] MCV (RBC) [Entitic vol] 91.1 fL 80.0 - 100.0 fL [facility] Monocytes (Bld) [#/Vol] 0.55 10*3/uL <0.87 k/uL [facility] Monocytes/100 WBC (Bld) 8.1 % [facility] Neutrophils (Bld) [#/Vol] 3.37 10*3/uL 1.45 - 7.50 k/uL [facility] Neutrophils/100 WBC (Bld) 50.1 % [facility] Nucleated RBC (Bld) [#/Vol] 10*3/uL <0.01 k/uL [facility] Nucleated RBC/100 WBC (Bld) [Ratio] 0.0 /100 WBC [facility] Platelet mean volume (Bld) [Entitic vol] 9.6 fL 9.0 - 12.7 fL [facility] Platelets (Bld) [#/Vol] 443 10*3/uL High 150 - 400 k/uL [facility] RBC (Bld) [#/Vol] 4.49 10*6/uL 3.90 - 5.20 m/uL [facility] WBC (Bld) [#/Vol] 6.75 10*3/uL 3.70 - 11. 00 k/uL [facility] Comprehensive metabolic 2000 panelon 04-13-2022 Albumin [Mass/Vol] 5.0 g/dL High 3.9 - 4.9 g/dL [facility] ALP [Catalytic activity/Vol] 69 U/L 34 - 123 U/L [facility] ALT [Catalytic activity/Vol] 8 U/L 7 - 38 U/L [facility] Anion gap [Moles/Vol] 10 mmol/L 9 - 18 mmol/L [facility] AST [Catalytic activity/Vol] 13 U/L 13 - 35 U/L [facility] Bilirubin [Mass/Vol] 0.5 mg/dL 0.2 - 1.3 mg/dL [facility] Calcium [Mass/Vol] 10.1 mg/dL 8.5 - 10.2 mg/dL [facility] Chloride [Moles/Vol] 104 mmol/L 97 - 105 mmol/L [facility] CO2 [Moles/Vol] 24 mmol/L 22 - 30 mmol/L [facility] Creatinine [Mass/Vol] 0.65 mg/dL 0.58 - 0.96 mg/dL [facility] Estimated Glomerular Filtration Rate 130 mL/min/1.73m >=60 mL/min/1.73m [facility] Glucose [Mass/Vol] 98 mg/dL 74 - 99 mg/dL [facility] Potassium [Moles/Vol] 3.9 mmol/L 3.7 - 5.1 mmol/L [facility] Protein [Mass/Vol] 7.5 g/dL 6.3 - 8.0 g/dL [facility] Sodium [Moles/Vol] 138 mmol/L 136 - 144 mmol/L [facility] Urea nitrogen [Mass/Vol] 7 mg/dL 7 - 21 mg/dL [facility] LIPASE [facility] 04-13-2022 Lipase [Catalytic activity/Vol] 24 U/L 16 - 61 U/L [facility] T4 FREE/FREE THYROXon 2021 Free T4 [Mass/Vol] 1.5 ng/dL 0.9 - 1.7 ng/dL [facility] TSH [facility] 04-13-2022 TSH Qn 2.130 m[IU]/L 0.510 - 4.300 mIU/L [facility] XR ABDOMEN 1V SUPINEon 04-11 [facility] XR Abdomen Supine and Uprigh ton 04-11-2022 IMPRESSION: No dilated bowel. No significant colonic stool burden. No pathologic calcifications. IMPRESSION: Nonobstructive bowel gas pattern. Traffic Sign Erection Supervisor: PSCB Transcribe Date/Time: Apr 11 2022 5:25P Dictated by : ROS STEIN DO This examination was interpreted and the report reviewed and electronically signed by: ROS STEIN DO on Apr 11 2022 5:27PM EST ZZZ__NOT_USE _DIVISION OF RADIOLOGY * * *Final Report* [...] None TECHNIQUE: Single supine view. 2 image(s) ZZZ_DO_NOT_USE _DIVISION OF RADIOLOGY [facility] [place] - [facility]/11/[facility]22 * * *Final Report* * [...] pathologic calcifications. IMPRESSION: Nonobstructive bowel gas pattern. Traffic Sign Erection Supervisor: NIKOLE Transcribe Date/Time: Apr 11 2022 5:25P Dictated by : ROS STEIN DO This examination was interpreted and the report reviewed and electronically signed by: ROS TSEIN DO on Apr 11 2022 5:27PM [facility] Radiology Study observation (narrative) [facility] XR Abdomen Supine and Uprigh tOrdered By: Cc Provider on 04-11-2022 [facility] XR Foot - right AP and Later [...] Impression: 1. No acute fracture or dislocation. Traffic Sign Erection Supervisor: NIKOLE Transcribe Date/Time: Aug 25 2021 11:08A Dictated by : FAITH JOHNSON MD This examination was interpreted and the report reviewed and electronically signed by: FAITH JOHNSON MD on Aug 25 2021 11:10AM EST DIVISION OF RADIOLOGY Provider, Lenny mendoza [place] - 08/25/2021 * * *Final Report* * [...] Impression: 1. No acute fracture or dislocation. Traffic Sign Erection Supervisor: NIKOLE Transcribe Date/Time: Aug 25 2021 11:08A Dictated by : FAITH JOHNSON MD This examination was interpreted and the report reviewed and electronically signed by: FAITH JOHNSON MD on Aug 25 2021 11:10AM EST [facility] Radiology Study observation (narrative) [facility] XR Foot - right AP and Later al and obliqueOrdered By: Ccf Provider on 08-25-2021 [facility] Vital Signs Date Time Vital Sign Value Performing Clinician Asiya waters 08-18-2024 09:08-0500 Body mass index (BMI) [Ratio] 21.16 kg/m2 Fatuma Jackson APRN.CNP Work Phone: [facility] 08-18-2024 09:08-0500 Body temperature 98.2 [degF] Fatuma Caseylogar LAUNDRY ROUTEMAN.SODA DRIER FEEDER Work Phone: [facility] 08-18-2024 09:08-0500 Body weight 51.5 kg Fatuma Jackson LAUNDRY ROUTEMAN.LUDY Work Phone: [facility] 08-18-2024 09:08-0500 Diastolic blood pressure 84 mm[Hg] Fatuma Caseylogty LAUNDRY ROUTEMAN.LUDY Work Phone: [facility] 08-18-2024 09:08-0500 Heart rate 110 /min Fatuma Caseylogty LAUNDRY ROUTEMAN.LUDY Work Phone: [facility] 08-18-2024 09:08-0500 Respiratory rate 16 /min Fatuma Podlogar LAUNDRY ROUTEMAN.SODA DRIER FEEDER Work Phone: [facility] 08-18-2024 09:08-0500 SaO2% (BldA) [Mass fraction] 98 % Fatuma Podlogar LAUNDRY ROUTEMAN.SODA DRIER FEEDER Work Phone: [facility] 08-18-2024 09:08-0500 Systolic blood pressure 112 mm[Hg] Fatuma Podlogar LAUNDRY ROUTEMAN.SODA DRIER FEEDER Work Phone: [facility] 08-12-2024 10:33-0500 Body mass index (BMI) [Ratio] 21.57 kg/m2 Audi Tinoco LAUNDRY ROUTEMAN.SODA DRIER FEEDER Work Phone: [facility] 08-12-2024 10:33-0500 Body temperature 99 [degF] Audi Tinoco LAUNDRY ROUTEMAN.SODA DRIER FEEDER Work Phone: [facility] 08-12-2024 10:33-0500 Body weight 52.5 kg Audi Tinoco LAUNDRY ROUTEMAN.SODA DRIER FEEDER Work Phone: [facility] 08-12-2024 10:33-0500 Diastolic blood pressure 72 mm[Hg] Audi Tinoco LAUNDRY ROUTEMAN.SODA DRIER FEEDER Work Phone: [facility] 08-12-2024 10:33-0500 Heart rate 122 /min Audi Tinoco LAUNDRY ROUTEMAN.SODA DRIER FEEDER Work Phone: [facility] 08-12-2024 10:33-0500 Respiratory rate 18 /min Audi Tinoco LAUNDRY ROUTEMAN.SODA DRIER FEEDER Work Phone: [facility] 08-12-2024 10:33-0500 SaO2% (BldA) [Mass fraction] 98 % Audi Tinoco LAUNDRY ROUTEMAN.SODA DRIER FEEDER Work Phone: [facility] 08-12-2024 10:33-0500 Systolic blood pressure 122 mm[Hg] Audi Tinoco LAUNDRY ROUTEMAN.SODA DRIER FEEDER Work Phone: [facility] 08-11-2024 13:45-0500 Body mass index (BMI) [Ratio] 21.66 kg/m2 Rossy Praisler-Wood LAUNDRY ROUTEMAN.SODA DRIER FEEDER Work Phone: [facility] 08-11-2024 13:45-0500 Body temperature 99.3 [degF] Rossy Praisler-Wood LAUNDRY ROUTEMAN.SODA DRIER FEEDER Work Phone: [facility] 08-11-2024 13:45-0500 Body weight 52.7 kg Rossy Praisler-Wood LAUNDRY ROUTEMAN.SODA DRIER FEEDER Work Phone: [facility] 08-11-2024 13:45-0500 Diastolic blood pressure 74 mm[Hg] Rossy Praisler-Wood LAUNDRY ROUTEMAN.SODA DRIER FEEDER Work Phone: [facility] 08-11-2024 13:45-0500 Heart rate 112 /min Rossy Praisler-Wood LAUNDRY ROUTEMAN.SODA DRIER FEEDER Work Phone: [facility] 08-11-2024 13:45-0500 Respiratory rate 18 /min Rossy Praisler-Wood LAUNDRY ROUTEMAN.SODA DRIER FEEDER Work Phone: [facility] 08-11-2024 13:45-0500 SaO2% (BldA) [Mass fraction] 99 % Rossy Praisler-Wood LAUNDRY ROUTEMAN.SODA DRIER FEEDER Work Phone: [facility] 08-11-2024 13:45-0500 Systolic blood pressure 128 mm[Hg] Rossy Praisler-Wood LAUNDRY ROUTEMAN.SODA DRIER FEEDER Work Phone: [facility] 08-08-2024 15:01-0500 Body mass index (BMI) [Ratio] 21.78 kg/m2 Krislyn Aberegg PA Work Phone: [facility] 08-08-2024 15:01-0500 Body temperature 98.4 [degF] Krislyn Aberegg PA Work Phone: [facility] 08-08-2024 15:01-0500 Body weight 53 kg Krislyn Aberegg PA Work Phone: [facility] 08-08-2024 15:01-0500 Diastolic blood pressure 94 mm[Hg] Krislyn Aberegg PA Work Phone: [facility] 08-08-2024 15:01-0500 Heart rate 121 /min Krislyn Aberegg PA Work Phone: [facility] 08-08-2024 15:01-0500 Respiratory rate 20 /min Krislyn Aberegg PA Work Phone: [facility] 08-08-2024 15:01-0500 SaO2% (BldA) [Mass fraction] 99 % Krislyn Aberegg PA Work Phone: [facility] 08-08-2024 15:01-0500 Systolic blood pressure 133 mm[Hg] Krislyn Aberegg PA Work Phone: [facility] 07-20-2024 14:03-0400 Body height 156 cm Fatuma Podlogar LAUNDRY ROUTEMAN.SODA DRIER FEEDER Work Phone: [facility] 07-20-2024 14:03-0400 Body mass index (BMI) [Ratio] 21.98 kg/m2 Fatuma Podlogar LAUNDRY ROUTEMAN.SODA DRIER FEEDER Work Phone: [facility] 07-20-2024 14:03-0400 Body weight 53.5 kg Fatuma Podlogar LAUNDRY ROUTEMAN.SODA DRIER FEEDER Work Phone: [facility] 07-20-2024 14:03-0400 Diastolic blood pressure 74 mm[Hg] Fatuma Podlogar LAUNDRY ROUTEMAN.SODA DRIER FEEDER Work Phone: [facility] 07-20-2024 14:03-0400 Heart rate 98 /min Fatuma Podlogar LAUNDRY ROUTEMAN.SODA DRIER FEEDER Work Phone: [facility] 07-20-2024 14:03-0400 Respiratory rate 18 /min Fatuma Podlogar LAUNDRY ROUTEMAN.SODA DRIER FEEDER Work Phone: [facility] 07-20-2024 14:03-0400 SaO2% (BldA) [Mass fraction] 97 % Fatuma Podlogar LAUNDRY ROUTEMAN.SODA DRIER FEEDER Work Phone: [facility] 07-20-2024 14:03-0400 Systolic blood pressure 122 mm[Hg] Fatuma Podlogar LAUNDRY ROUTEMAN.SODA DRIER FEEDER Work Phone: [facility] 04-13-2022 14:48-0400 Body temperature 98.49 [degF] Emi Davis PA-C Work Phone: [facility] 04-13-2022 14:48-0400 Body weight 57.7 kg Emi Davis PA-C Work Phone: [facility] 04-13-2022 14:48-0400 Heart rate 104 /min Emi Davis PA-C Work Phone: [facility] 04-13-2022 14:48-0400 Respiratory rate 16 /min Emi Davis PA-C Work Phone: [facility] 04-11-2022 16:28-0400 Body temperature 99.19 [degF] Saeed Ryder MD Work Phone: [facility] 04-11-2022 16:28-0400 Body weight 58.15 kg Saeed Ryder MD Work Phone: [facility] 04-11-2022 16:28-0400 Diastolic blood pressure 78 mm[Hg] Saeed Ryder MD Work Phone: [facility] 04-11-2022 16:28-0400 Heart rate 96 /min Saeed Ryder MD Work Phone: [facility] 04-11-2022 16:28-0400 Respiratory rate 20 /min Saeed Ryder MD Work Phone: [facility] 04-11-2022 16:28-0400 SaO2% (BldA) [Mass fraction] 99 % Saeed Ryder MD Work Phone: [facility] 04-11-2022 16:28-0400 Systolic blood pressure 122 mm[Hg] Saeed Ryder MD Work Phone: [facility] 03-29-2022 14:40-0400 Body temperature 98.2 [degF] Rakesh Geiger APRN.SODA DRIER FEEDER Work Phone: [facility] 03-29-2022 14:40-0400 Body weight 58.24 kg [facility] LA[facility]Y ROUTEMAN.SODA DRIER FEEDER Work Phone: [facility] 03-29-2022 14:40-0400 Diastolic blood pressure 80 mm[Hg] [facility] LAUN[facility]Y ROUTEMAN.SODA DRIER FEEDER Work Phone: [facility] 03-29-2022 14:40-0400 Heart rate 92 /min [facility] LAUNDRY ROUTEMAN.SODA DRIER FEEDER Work Phone: [facility] 03-29-2022 14:40-0400 Respiratory rate 18 /min [facility]etha [facility] LAUNDRY ROUTEMAN.SODA DRIER FEEDER Work Phone: [facility] 03-29-2022 14:40-0400 SaO2% (BldA) [Mass fraction] 99 % [facility]swetha [facility] LAUNDRY ROUTEMAN.SODA DRIER FEEDER Work Phone: [facility] 03-29-2022 14:40-0400 Systolic blood pressure 122 mm[Hg] [facility]swetha [facility] LAUNDRY ROUTEMAN.SODA DRIER FEEDER Work Phone: [facility] Encounters Encounter Date Encounter Type Care Provider Facility Start: 09-07-2024 End: 09-07-2024 ambulatory DAILY GARSIA Facility:[facility] Start: 09-07-2024 End: 09-07-2024 Nursing evaluation of patient and report Mi Nurse Work Phone: [facility] Stephanie Comment on above: Encounter for immuni zation (Primary Dx) Start: 09-02-2024 End: 09-07-2024 Telephone encounter Daily Garsia MD Work Phone: [facility] Stephanie Comment on above: Appointment Start: 08-27-2024 End: 09-07-2024 Telephone encounter Daily Garsia MD Work Phone: [facility] Stephanie Comment on above: Internal Referrals/r esources (ENT) Start: 08-18-2024 End: 08-18-2024 Patient encounter procedure Fatuma Jackson LAUNDRY ROUTEMAN.SODA DRIER FEEDER Work Phone: [facility] Stephanie Comment on above: Acute otitis media, left (Primary Dx); Perforation of right tympanic membrane; Decreased hearing of right ear Start: 08-18-2024 End: 08-18-2024 ambulatory DAILY GARSIA Facility:[facility] Start: 08-15-2024 End: 08-15-2024 Emergency department patient visit Deepak Garsia Facility:[facility] Start: 08-15-2024 End: 08-15-2024 ambulatory Myah Tenorio RN NURSE CARDROOM SUPERVISOR Comment on above: Ear Infection Start: 08-14-2024 End: 08-14-2024 Telephone encounter Daily Garsia MD Work Phone: [facility] Comment on above: Medication Request Start: 08-12-2024 End: 08-12-2024 ambulatory DAILY GARSIA Facility:[facility] Start: 08-12-2024 End: 08-12-2024 Patient encounter procedure Audi Tinoco APRN.SODA DRIER FEEDER Work Phone: [facility] Comment on above: Acute otitis media, right (Primary Dx) Start: 08-11-2024 End: 08-11-2024 Patient encounter procedure Rossy Johnson APRN.SODA DRIER FEEDER Work Phone: [facility] Comment on above: Other acute nonsuppu rative otitis media of right ear, recurrence not specified (Primary Dx); Acute cough Start: 08-11-2024 End: 08-11-2024 ambulatory DAILY GARSIA Facility:[facility] Start: 08-11-2024 End: 08-11-2024 Telephone encounter Daily Garsia MD Work Phone: [facility] Comment on above: Patient Update Start: 08-08-2024 End: 08-08-2024 ambulatory DAILY GARSIA Facility:[facility] Start: 08-08-2024 End: 08-08-2024 Patient encounter procedure Bita Mullen PA Work Phone: [facility] Comment on above: Sore throat (Primary Dx) Start: 07-21-2024 End: 07-21-2024 Emergency department patient visit Tobi Haney Facility:[facility] Start: 07-21-2024 End: 07-23-2024 Telephone encounter Daily Garsia MD Work Phone: [facility] [place] Comment on above: Results Start: 07-20-2024 Encounter for genera l adult medical examination without abnormal findings DAILY GARSIA [facility] Start: 07-20-2024 End: 07-20-2024 Patient encounter procedure Fatuma Jackson LAUNDRY ROUTEMAN.[employer]A D[employer]ER FEEDER Work Phone: [facility] [place] Comment on above: Encounter for medica l examination to establish care (Primary Dx); Mild intermittent asthma with acute exacerbation; Anxiety and depression; Arthralgia, unspecified joint; Special screening examination for viral disease; Screening for HIV (human immunodeficiency virus); Encounter for screening examination for other mental health and behavioral disorders; Screening for depression Start: 07-20-2024 End: 07-20-2024 Patient encounter status Fatuma Caseylogty LAUNDRY ROUTEMAN.[employer] D[employer] FEEDER Work Phone: [facility] Start: 07-20-2024 End: 07-20-2024 ambulatory FATUMA PODLOGTY Facility:[facility] Start: 04-24-2022 Telephone encounter Emi Patel-C Work Phone: [facility] [place] Comment on above: Results Start: 04-13-2022 End: 04-13-2022 Patient encounter procedure Emi Davis PANirajC Work Phone: [facility] [place] Comment on above: Abdominal pain, unsp ecified abdominal location (Primary Dx); Bowel habit changes Start: 04-11-2022 End: 04-11-2022 Subsequent hospital visit by physician Vane [facility] [place] Work Phone: Radiology Comment on above: Change in bowel habi ts [R19.4] Start: 04-11-2022 End: 04-11-2022 Patient encounter procedure Saeed Ryder MD Work Phone: [facility] Comment on above: Change in bowel habi ts (Primary Dx) Start: 03-29-2022 End: 03-29-2022 Patient encounter procedure Rakesh Geiger LAUNDRY ROUTEMAN.[employer] D[employer] FEEDER Work Phone: [facility] Comment on above: Viral illness (Prima ry Dx); Dizziness Start: 03-19-2022 ambulatory Valencia Ulloa RN [facility] Start: 03-19-2022 Follow-up encounter Valencia Ulloa RN [facility] Comment on above: Asthma (Breathe Well Follow up) Start: 08-25-2021 End: 08-25-2021 Subsequent hospital visit by physician Xr [facility] [place] Work Phone: Radiology Comment on above: Foot pain, right [M7 9.671] Procedures Date Procedure Procedure Detail Performing Clinician Start: 08-08-2024 STREP A MOLECULAR (POC) Saeed Ryder MD Work Phone: Start: 07-20-2024 Adult depression screening assessment Fatuma Jackson LAUNDRY ROUTEMAN.[employer] FEEDER Work Phone: Start: 04-12-2022 Adult depression screening assessment Emi Davis PA-C Work Phone: Start: 04-11-2022 Radiologic exam abdo men 1 view Saeed Ryder MD Work Phone: Start: 04-11-2022 Adult depression screening assessment Saeed Ryder MD Work Phone: Start: 08-25-2021 Radex foot complete minimum 3 views Gisselle Cook LAUNDRY ROUTEMAN.[employer] FEEDER Work Phone: Start: 01-17-2021 Adult depression screening assessment Rakesh Geiger LAUNDRY ROUTEMAN.[employer] D[employer] FEEDER Work Phone: Plan of Treatment Date Care Activity Detail Author Start: 09-07-2034 Urine microalbumin profile DTaP,Tdap,Td Vaccine (8 - Td or Tdap) [facility] Start: 08-18-2025 Annual 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 genesis Disease Visit Annual PCP Team Chronic Disease Visit [facility] Start: 07-20-2025 Annual 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 genesis Disease Visit Annual PCP Team Chronic Disease Visit [facility] Start: 07-20-2025 Anxiety Screening Anxiety Screening [facility] Start: 07-20-2025 Asthma Control Test Asthma Control T est [facility] Start: 07-20-2025 Depression Screening Depression Scre ening [facility] Start: 07-20-2025 Screening for Chlamy shaun trachomatis Chlamydia Screening (24) [facility] Comment on above: Postponed from 08/02 (Declined at this time) Start: 08-19-2024 End: 08-19-2024 Patient encounter procedure 08/19/2024 12:20 PM EST Office Visit [facility] [place] [address] [place] [address] PodlogarFatuma APRN.SODA DRIER FEEDER [address] [place] [address] 1 month follow up [facility] Comment on above: 1 month follow up Start: 2024 Urine microalbumin profile [facility] Start: 07-20-2024 End: 10-19-2024 C reactive protein [Mass/volume] in Serum or Plasma [facility] Comment on above: Expected: 07/20/2024 , Expires: 10/19/2024 Start: 07-20-2024 End: 10-19-2024 CBC W Auto Differential panel - Blood [facility] Comment on above: Expected: 07/20/2024 , Expires: 10/19/2024 Start: 07-20-2024 End: 10-19-2024 Comprehensive metabolic 2000 panel - Serum or Plasma [facility] Work Phone: Comment on above: Expected: 07/20/2024 , Expires: 10/19/2024 Start: 07-20-2024 End: 10-19-2024 Cyclic citrullinated peptide IgG Ab [Units/volume] in Serum or Plasma [facility] Comment on above: Expected: 07/20/2024 , Expires: 10/19/2024 Start: 07-20-2024 End: 10-19-2024 Erythrocyte sedimentation rate [facility] Comment on above: Expected: 07/20/2024 , Expires: 10/19/2024 Start: 07-20-2024 End: 10-19-2024 Hepatitis C virus Ab [Presence] in Serum [facility] Comment on above: Expected: 07/20/2024 , Expires: 10/19/2024 Start: 07-20-2024 End: 10-19-2024 HIV 1+2 Ab [Presence] in Serum or Plasma by Immunoassay [facility] Comment on above: Expected: 07/20/2024 , Expires: 10/19/2024 Start: 07-20-2024 End: 07-20-2024 Patient encounter procedure 07/20/2024 2:00 PM EDT Office Visit [facility] [address] [place] [address] PodlogarFatuma APRN.SODA DRIER FEEDER [address] [place] [address] est care [facility] Comment on above: est care Start: 07-20-2024 End: 10-19-2024 Rheumatoid factor [Units/volume] in Serum or Plasma [facility] Comment on above: Expected: 07/20/2024 , Expires: 10/19/2024 Start: 07-20-2024 End: 10-19-2024 Thyrotropin [Units/volume] in Serum or Plasma [facility] Comment on above: Expected: 07/20/2024 , Expires: 10/19/2024 Start: 05-24-2024 Covid-19 Vaccine ( season) Covid-19 Vaccine ( season) [facility] Start: 05-24-2024 Influenza vaccination Influenza Vacc ine (#1) [facility] Start: 2023 Screening for malign ant neoplasm of cervix Cervical Cancer Screening [facility] Start: 04-13-2023 ANNUAL PCP TEAM 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 OPERATOR GENESIS DISEASE VISIT ANNUAL PCP TEAM CHRONIC DISEASE VISIT [facility] Start: 04-12-2023 Adult depression screening assessment DEPRESSION SCREENING [facility] Start: 04-11-2023 Adult depression screening assessment DEPRESSION SCREENING [facility] Start: 07-19-2022 ASTHMA ACTION PLAN ASTHMA ACTION AFSHIN N [facility] Start: 05-24-2022 Influenza vaccination INFLUENZA (#1) [facility] Start: 03-28-2022 ANNUAL PCP TEAM 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 OPERATOR GENESIS DISEASE VISIT ANNUAL PCP TEAM CHRONIC DISEASE VISIT [facility] Start: 01-17-2022 Adult depression screening assessment DEPRESSION SCREENING [facility] Start: 11-09-2021 COVID-19 VACCINE (3 - Booster for Pfizer series) COVID-19 VACCINE (3 - Booster for Pfizer series) [facility] Start: 07-19-2021 ASTHMA CONTROL TEST ASTHMA CONTROL T EST [facility] Start: 2020 Anxiety Screening Anxiety Screening [facility] Start: 2020 CHLAMYDIA SCREENING (18-24) CHLAMYDIA SCREENING (18-24) [facility] Start: 2020 Depression Screening Depression Scre ening [facility] Start: 2020 GC (GONORRHEA) SCREE KELECHI (18-24) GC (GONORRHEA) SCREENING (18-24) [facility] Start: 2020 HEPATITIS C SCREENING HEPATITIS C [facility] Start: 2020 Hepatitis C screening Hepatitis C [facility] Start: 2020 HIV SCREENING HIV SCREENING [facility] Start: 2020 HIV screening HIV Screening [facility] Start: 2020 Screening for Chlamy shaun trachomatis Chlamydia Screening (18) [facility] Start: 2020 SPIROMETRY SPIROMETRY [facility] Start: 2018 Meningococcal B Vacc ine: Consider Based On Risk (1 of 2 - Patient Seeks Protection) Meningococcal B Vaccine: Consider Based On Risk (1 of 2 - Patient Seeks Protection) [facility] Start: 2016 PEDS TO ADULT TRANSI TION ANNUAL ASSESSMENT PEDS TO ADULT TRANSITION ANNUAL ASSESSMENT [facility] Start: 2014 PEDS TO ADULT TRANSI TION INITIAL DISCUSSION PEDS TO ADULT TRANSITION INITIAL DISCUSSION [facility] Start: 2012 MENINGOCOCCAL B: Consider based on risk (1 of 2 - Risk Bexsero 2-dose series) MENINGOCOCCAL B: Consider based on risk (1 of 2 - Risk Bexsero 2-dose series) [facility] Start: 2008 PNEUMOCOCCAL (1 - PCV) PNEUMOCOCCAL (1 - PCV) [facility] Calprotectin [Mass/m ass] in Stool CALPROTECTIN,FECAL Lab Routine Abdominal pain, unspecified abdominal location Bowel habit changes Ordered: 04/13/2022 [facility] Work Phone: Comment on above: Ordered: 04/13/2022 Influenza virus A an d B RNA and SARS-CoV-2 (COVID-19) N gene panel - Respiratory specimen by VESTA with probe detection COVID WITH FLUA+B, ROUTINE Microbiology Routine Viral illness 03/29/2022 2[facility] [facility] Immunizations Immunization Date Immunization Notes Care Provider Tyler nely 09-07-2024 tetanus toxoid, redu ayse diphtheria toxoid, and acellular pertussis vaccine, adsorbed Mi Nurse Work Phone: [facility] 12-05-2018 meningococcal polysaccharide (groups A, C, Y and W-135) diphtheria toxoid conjugate vaccine (MCV4P) [facility] LA[facility]Y ROUTEMAN.SODA DRIER FEEDER Work Phone: [facility] 04-28-2015 human papilloma viru s vaccine, quadrivalent Rakesh Pendlebury LAUNDRY ROUTEMAN.SODA DRIER FEEDER Work Phone: [facility] Work Phone: 2014 human papilloma viru s vaccine, quadrivalent Rakesh Pendlebury LAUNDRY ROUTEMAN.SODA DRIER FEEDER Work Phone: [facility] Work Phone: 2014 influenza, injectabl e, quadrivalent, preservative free [facility] LAUNDRY ROUTEMAN.SODA DRIER FEEDER Work Phone: [facility] Work Phone: 2014 meningococcal polysaccharide (groups A, C, Y and W-135) diphtheria toxoid conjugate vaccine (MCV4P) [facility] LAUNDRY ROUTEMAN.SODA DRIER FEEDER Work Phone: [facility] Work Phone: 2014 tetanus toxoid, redu ayse diphtheria toxoid, and acellular pertussis vaccine, adsorbed [facility] LAUNDRY ROUTEMAN.SODA DRIER FEEDER Work Phone: [facility] Work Phone: 2014 influenza virus vacc ine, unspecified formulation Xr [place] Work Phone: [facility] 05-22-2008 diphtheria, tetanus toxoids and acellular pertussis vaccine [facility] LAUNDRY ROUTEMAN.SODA DRIER FEEDER Work Phone: [facility] Work Phone: 05-22-2008 measles, mumps and rubella virus vaccine Rakesh Berlinmamta LAUNDRY ROUTEMAN.SODA DRIER FEEDER Work Phone: [facility] Work Phone: 05-22-2008 poliovirus vaccine, inactivated Rakesh Geiger LAUNDRY ROUTEMAN.SODA DRIER FEEDER Work Phone: [facility] Work Phone: 05-22-2008 varicella virus vaccine Jens swetha Berlinmamta LAUNDRY ROUTEMAN.SODA DRIER FEEDER Work Phone: [facility] Work Phone: 07-26-2006 influenza virus vacc ine, unspecified formulation Rakesh Sobiamamta LAUNDRY ROUTEMAN.[facility] Work Phone: [facility] Work Phone: 12-17-2003 diphtheria, tetanus toxoids and acellular pertussis vaccine Rakesh Berlinmamta LAUNDRY ROUTEMAN.[facility] Work Phone: [facility] Work Phone: 12-17-2003 haemophilus influenz ae type b vaccine, HbOC conjugate Rakesh Ramsaymamta LAUNDRY ROUTEMAN.SODA DRIER FEEDER Work Phone: [facility] Work Phone: 2003 influenza virus vacc ine, unspecified formulation Rakesh Berlinmamta LAUNDRY ROUTEMAN.[facility] Work Phone: [facility] Work Phone: 2003 measles, mumps and rubella virus vaccine Rakesh Berlinmamta LAUNDRY ROUTEMAN.[employer]A DRIER FEEDER Work Phone: [facility] Work Phone: 2003 varicella virus vaccine Jens swetha Slademamta LAUNDRY ROUTEMAN.SODA DRIER FEEDER Work Phone: [facility] Work Phone: 02-05-2003 diphtheria, tetanus toxoids and acellular pertussis vaccine Rakesh Ramsaymamta LAUNDRY ROUTEMAN.SODA DRIER FEEDER Work Phone: [facility] Work Phone: 02-05-2003 haemophilus influenz ae type b conjugate and Hepatitis B vaccine Rakesh Ramsaymamta LAUNDRY ROUTEMAN.SODA DRIER FEEDER Work Phone: [facility] Work Phone: 02-05-2003 poliovirus vaccine, inactivated Rakesh Pendlebury LAUNDRY ROUTEMAN.[facility] Work Phone: [facility] 2002 diphtheria, tetanus toxoids and acellular pertussis vaccine Rakesh Pendlebury LAUNDRY ROUTEMAN.SODA DRIER FEEDER Work Phone: [facility] Work Phone: 2002 haemophilus influenz ae type b vaccine, HbOC conjugate [facility] LAUNDRY ROUTEMAN.SODA DRIER FEEDER Work Phone: [facility] Work Phone: 2002 pneumococcal conjuga te vaccine, 7 valent Rakesh Pendlebury LAUNDRY ROUTEMAN.[facility] Work Phone: [facility] Work Phone: 2002 poliovirus vaccine, inactivated Rakesh Pendlebury LAUNDRY ROUTEMAN.[facility] Work Phone: [facility] 2002 diphtheria, tetanus toxoids and acellular pertussis vaccine [facility] LA[facility]DRY ROUTEMAN.[facility] Work Phone: [facility] Work Phone: 2002 haemophilus influenz ae type b conjugate and Hepatitis B vaccine Rakesh Pendlebury LAUNDRY ROUTEMAN.[facility] Work Phone: [facility] Work Phone: 2002 pneumococcal conjuga te vaccine, 7 valent Rakesh Pendlebury LAUNDRY ROUTEMAN.[facility] Work Phone: [facility] Work Phone: 2002 poliovirus vaccine, inactivated Rakesh Pendlebury LAUNDRY ROUTEMAN.SODA DRIER FEEDER Work Phone: [facility] 2002 hepatitis B vaccine, pediatric or pediatric/adolescent dosage Rakesh Pendlebury LAUNDRY ROUTEMAN.[facility] Work Phone: [facility] Work Phone: Payers Date Payer Category Payer Self-pay 2024 Unknown [id number] 2022 Medicaid [id number] 2013 Medicaid [employer] [id number] 2013-Present [phone] [address] [place] [address] Medicaid [id number] 2013 Medicaid [id number] Unknown [id number] Unknown [id number] Social History Date Type Detail Facility Start: 05-18-2011 End: 07-20-2024 Tobacco smoking status NHIS Never smoked tobacco [facility] Start: 05-18-2011 End: 07-20-2024 Tobacco use and exposure Smokeless tobacco non-user [facility] Start: 08-25-2021 End: 03-29-2022 Alcohol intake Current non-drinker of alcohol (finding) [facility] Start: 02-21-2010 End: 07-20-2024 Tobacco Comment Smokers go outside [facility] Start: 2002 Sex Assigned At Not on file [facility] Start: 07-26-2021 End: 04-11-2022 Exposure to SARS-CoV-2 (event) Not sure [facility] Work Phone: Start: 04-10-2022 End: 04-13-2022 History SDOH Alcohol Frequency 1 [facility] Start: 04-10-2022 History SDOH Alcohol Std Drinks 98 [facility] Start: 04-10-2022 End: 04-13-2022 History SDOH Social Connections Phone 2 [facility] Start: 04-10-2022 History SDOH Social Connections Living 7 [facility] Start: 04-10-2022 History SDOH Physica l Activity DPW 0 [facility] Start: 04-10-2022 History SDOH Financial 3 [facility] History of tobacco use Passive smoker [facility] Work Phone: Start: 04-09-2022 End: 07-18-2024 History of Social function [facility] Start: 04-09-2022 End: 07-18-2024 Social connection and isolation panel [facility] Do you belong to any clubs or organizations such as jain groups, unions, fraternal or athletic groups, or school groups? No [facility] Are you now , , , , never or living with a partner? Never [facility] How often to you hav e a drink containing alcohol? Never [facility] How many standard dr inks containing alcohol do you have on a typical day? Patient declined [facility] How hard is it for y ou to pay for the very basics like food, housing, medical care, and heating Somewhat hard [facility] Do you feel stress - tense, restless, nervous, or anxious, or unable to sleep at night because your mind is troubled all the time - these days [OSQ] Only a little [facility] (I/We) worried whe er (my/our) food would run out before (I/we) got money to buy more. Sometimes true [facility] In the past 12 month s, was there a time when you were not able to pay the mortgage or rent on time? Yes [facility] Start: 07-20-2024 End: 08-18-2024 Alcoholic beverage intake Current drinker of alcohol (finding) [facility] Do you feel stress - tense, restless, nervous, or anxious, or unable to sleep at night because your mind is troubled all the time - these days [OSQ] Very much [facility] Start: 07-20-[address] [facility] Clinical Notes 06-08-2016 to 09-07-2024 Telephone Encounter - Faith Berger LPN - 09/07/2024 2:04 PM ESTTelephone Encounter - Faith Berger LPN - 09/07/2024 2:04 PM ESTTelephone Encounter - Esther Cedeño - 08/27/2024 9:27 AM EST Note Date & Type Note Facility 09-07-2024 Telephone encounter Note Discussed with patient about ENT referral and guardianship. States that she does not have any legal guardianship now that she is an adult (updated demographic information). She also saw [facility] on 09/03/24. Faith Berger LPN [facility] 09-07-2024 Telephone encounter Note Spoke with patient at nurse visit appt today and printed immunization record for her. She has not had any blood titers completed. Faith Berger LPN [facility] 09-07-2024 Miscellaneous Notes Discussed with patient about ENT referral and guardianship. States that she does not have any legal guardianship now that she is an adult (updated demographic information). She also saw [facility] on 09/03/24. Faith Berger LPN [address] attempt left message to return call. Please see phone note from PCP office in regards to :From my understanding when I met patient she does not have a legal guardian anymore..Can we contact the patient and see if she is wanting the referral please. IF grandmother is no longer guardian we need to remove this. And then assist with ENT referral. Please call to set up ENT appt. Order for ENT consult placed. Fatuma Jackson APRN.LUDY Telephone call placed to patient. Message left to call office back. FYI, this is in patients chart notes. Pt gives her mom , Nicole Lee permission to call in on her behalf. 06/05/24. Kaylee Rodriguez LPN From my understanding when I met patient she does not have a legal guardian anymore..Can we contact the patient and see if she is wanting the referral please. IF grandmother is no longer guardian we need to remove this. Fatuma Jackson APRN.LUDY Patient's guardian called to request a referral to ENT for reoccurring BL ear infections. Please contact guardian to advise. PH. [phone] documented in this encounter [facility] 09-07-2024 Miscellaneous Notes Spoke with patient at nurse visit appt today and printed immunization record for her. She has not had any blood titers completed. Faith Berger LPN Order approved. Still no contact back from pt; will discuss at visit today regarding Hep B vaccine. Please file order for TDAP. Faith Berger LPN Left additional message at this time. Faith Berger LPN Left message for pt to contact office. She is currently scheduled for a nurse visit on 09/07/24 to receive Hepatitis B and TDAP vaccines. Need to know if she completed blood titers somewhere that show that she is not immune to Hep B (immunization record has dates she receive vaccine). Will not need to repeat unless negative titers. Faith Berger LPN documented in this encounter [facility] 09-07-2024 Note HNO ID: [id number] Author: FAITH BERGER LPN Service: ? Author Type: LICENSED NURSE Type: Progress Notes Filed: 09/07/2024 14:03 Note Text: Patient presents for TDAP vaccine. Denies any problems at this time. Tolerated injection well. Faith Berger LPN [facility] 09-07-2024 History of Present illness Narrative Patient presents for TDAP vaccine. Denies any problems at this time. Tolerated injection well. Faith Berger LPN documented in this encounter [facility] 09-07-2024 Telephone encounter Note Order approved. [facility] Work Phone: 09-07-2024 Telephone encounter Note Still no contact back from pt; will discuss at visit today regarding Hep B vaccine. Please file order for TDAP. Faith Berger LPN [facility] 09-04-2024 Telephone encounter Note Left additional message at this time. Faith Berger LPN [facility] 09-02-2024 Telephone encounter Note Left message for pt to contact office. She is currently scheduled for a nurse visit on 09/07/24 to receive Hepatitis B and TDAP vaccines. Need to know if she completed blood titers somewhere that show that she is not immune to Hep B (immunization record has dates she receive vaccine). Will not need to repeat unless negative titers. Faith Berger LPN [facility] 08-31-2024 Telephone encounter Note [address] St attempt left message to return call. Please see phone note from PCP office in regards to :From my understanding when I met patient she does not have a legal guardian anymore..Can we contact the patient and see if she is wanting the referral please. IF grandmother is no longer guardian we need to remove this. And then assist with ENT referral. [facility] 08-31-2024 Telephone encounter Note Please call to set up ENT appt. [facility] 08-31-2024 Telephone encounter Note Order for ENT consult placed. Fatuma Jackson APRN.LUDY [facility] 08-31-2024 Telephone encounter Note Telephone call placed to patient. Message left to call office back. FYI, this is in patients chart notes. Pt gives her mom , Nicole Lee permission to call in on her behalf. 06/05/24. Kaylee Rodriguez LPN [facility] 08-31-2024 Telephone encounter Note From my understanding when I met patient she does not have a legal guardian anymore..Can we contact the patient and see if she is wanting the referral please. IF grandmother is no longer guardian we need to remove this. Fatuma Jackson APRN.LUDY [facility] 08-27-2024 Telephone encounter Note Patient's guardian called to request a referral to ENT for reoccurring BL ear infections. Please contact guardian to advise. [phone] [facility] 08-18-2024 Note HNO ID: [id number] Author: FATUMA JACKSON APRN.SODA DRIER FEEDER Service: ? Author Type: Nurse Practitioner Type: Progress Notes Filed: 08/18/2024 15:10 Note Text: 08/18/2024 Patient presents with: ER F/U: [facility] 08/15 SUBJECTIVE: This is a 24 year old, accompanied by mother, that is here today for Above Complaints.. HOSPITAL/ER FOLLOW UP: Reason for visit: bilateral ear pain Which facility: [facility] Date of visit: 08/15/2024 Diagnosis: Otitis Media perforated ear drum - right Testing done: none Treatment given: Zithromax Did not take Zithromax last night as it upset her stomach. Feeling some improved. Reports hearing diminished right ear. Has a little pressure in the left ear. Some brownish drainage from right ear at times. Denies fevers, chills, tinnitus or other URI symptoms ER record reviewed PAST MEDICAL HISTORY Diagnosis Date Asthma Eczema Menarche aged 12 yrs Patellar instability of right knee PMH - PAST MEDICAL HISTORY OF hole in lung @ -resolved on it's own ALLERGIES Cats, Dogs, Lexapro [Escitalopram], and Seasonal Allergies MEDICATIONS Current Outpatient Medications Medication Sig benzonatate (TESSALON PERLE) 100 mg capsule Take 1 capsule by mouth three times a day as needed for up to 10 days. amoxicillin-clavulanate potassium (AUGMENTIN) 875-125 mg per tablet Take 1 tablet by mouth two times a day for 7 days. fluticasone (FLONASE) 50 mcg/actuation nasal spray Use 2 Sprays in each nostril once daily. Rinse mouth after use. albuterol (PROVENTIL) 2.5 mg /3 mL (0.083 %) nebulizer solution Use 3 mL via nebulizer every 4 hours as needed. OVER 5-15 MINUTES. FOR WHEEZING AND SHORTNESS OF BREATH. ProAir RespiClick 90 mcg/actuation breath activated (albuterol sulfate) Inhale 2 Puffs as instructed every 4 hours as needed. fluticasone (FLOVENT HFA) 110 mcg/actuation inhaler Inhale 1 puff twice daily. Via spacer then rinse and gargle with water. No current facility-administered medications for this visit. Medications and allergies reviewed by this provider. SOCIAL HISTORY Social History Tobacco Use Smoking status: Never Passive exposure: Yes Smokeless tobacco: Never Tobacco comments: Smokers go outside Vaping Use Vaping status: Never Used Substance Use Topics Alcohol use: Yes Comment: occasioanl Drug use: No REVIEW OF SYSTEMS All other reviewed and negative other than HPI. OBJECTIVE: BP 112/84 Pulse 110 Temp 36.8 ?C (98.2 ?F) Resp 16 Wt 51.5 kg (113 lb 8.6 oz) LMP 07/27/2024 (Exact Date) SpO2 98% BMI 21.16 kg/m? . Vital signs reviewed by this provider. APPEARANCE Well appearing, alert, in no acute distress, well-hydrated, well nourished. EYES conjunctiva and sclera normal. Ears: R TM - retracted, L TM - clear with good landmarks, nl light reflex THROAT normal, no erythema NECK Supple, no adenopathy; thyroid symmetric, normal size, no bruits HEART RRR with normal S1 and S2, no murmurs, no gallops, no JVD appreciated LUNG clear to auscultation. No wheezes, rhonchi or rales SKIN Skin color, texture, turgor normal, no suspicious rashes or lesions Meningococcal B Vaccine: Consider Based On Risk(1 of 2 - Patient Seeks Protection) Never done Spirometry Never done GC (Gonorrhea) Screening (18-24) Never done Cervical Cancer Screening Never done Influenza Vaccine(1) due on 05/24/2024 Covid-19 Vaccine(2023- season) due on 05/24/2024 DTaP,Tdap,Td Vaccine(7 - Td or Tdap) due on 2024 Chlamydia Screening (18-24) due on 07/20/2025 Depression Screening due on 07/20/2025 Anxiety Screening due on 07/20/2025 Annual PCP Team Chronic Disease Visit due on 08/18/2025 Hepatitis B Vaccine Completed HPV Vaccine Completed Hepatitis C Screening Completed HIV Screening Completed ASSESSMENT/PLAN: 1. Acute otitis media, left - ICD9: 382.9, ICD10: H66.92 (primary diagnosis) - improving - no red flag symptoms or exam findings - red flag symptoms discussed, verbalizes understanding - discussed importance of completing prescribed antibiotic, verbalizes understanding - prescription for Zofran given to take prior to antibiotic - ONDANSETRON 4 MG DISINTEGRATING TABLET - follow-up if symptoms fail to resolve 2. Perforation of right tympanic membrane - ICD9: 384.20, ICD10: H72.91 - plan as in #1 3. Decreased hearing of right ear - ICD9: 389.9, ICD10: H91.91 - may use Flonase nasal spray 1-2 sprays, rinse mouth after - follow-up if not improving over the next couple of weeks - no red flag symptoms or exam findings - red flag symptoms discussed, verbalizes understanding - will refer to ENT if persists Fatuma Podlogty, LAUNDRY ROUTEMAN.[employer] Prescription instructions reviewed with patient as applicable. Patient advised if symptoms do not improve or if symptoms worsen sooner, to contact their primary care physician. Potential red flag symptoms discussed with the patient. Reviewed appropriate action plan to take if red fl (more content not included)... [facility] 08-18-2024 History of Present illness Narrative 08/18/2024 Patient presents with: ER F/U: [facility] 08/15 SUBJECTIVE: This is a 24 year old, accompanied by mother, that is here today for Above Complaints.. HOSPITAL/ER FOLLOW UP: Reason for visit: bilateral ear pain Which facility: [facility] Date of visit: 08/15/2024 Diagnosis: Otitis Media perforated ear drum - right Testing done: none Treatment given: Zithromax Did not take Zithromax last night as it upset her stomach. Feeling some improved. Reports hearing diminished right ear. Has a little pressure in the left ear. Some brownish drainage from right ear at times. Denies fevers, chills, tinnitus or other URI symptoms ER record reviewed PAST MEDICAL HISTORY Diagnosis Date Asthma Eczema Menarche aged 12 yrs Patellar instability of right knee PMH - PAST MEDICAL HISTORY OF hole in lung @ -resolved on it's own ALLERGIES Cats, Dogs, Lexapro [Escitalopram], and Seasonal Allergies MEDICATIONS Current Outpatient Medications Medication Sig benzonatate (TESSALON PERLE) 100 mg capsule Take 1 capsule by mouth three times a day as needed for up to 10 days. amoxicillin-clavulanate potassium (AUGMENTIN) 875-125 mg per tablet Take 1 tablet by mouth two times a day for 7 days. fluticasone (FLONASE) 50 mcg/actuation nasal spray Use 2 Sprays in each nostril once daily. Rinse mouth after use. albuterol (PROVENTIL) 2.5 mg /3 mL (0.083 %) nebulizer solution Use 3 mL via nebulizer every 4 hours as needed. OVER 5-15 MINUTES. FOR WHEEZING AND SHORTNESS OF BREATH. ProAir RespiClick 90 mcg/actuation breath activated (albuterol sulfate) Inhale 2 Puffs as instructed every 4 hours as needed. fluticasone (FLOVENT HFA) 110 mcg/actuation inhaler Inhale 1 puff twice daily. Via spacer then rinse and gargle with water. No current facility-administered medications for this visit. Medications and allergies reviewed by this provider. SOCIAL HISTORY Social History Tobacco Use Smoking status: Never Passive exposure: Yes Smokeless tobacco: Never Tobacco comments: Smokers go outside Vaping Use Vaping status: Never Used Substance Use Topics Alcohol use: Yes Comment: occasioanl Drug use: No REVIEW OF SYSTEMS All other reviewed and negative other than HPI. OBJECTIVE: BP 112/84 Pulse 110 Temp 36.8 C (98.2 F) Resp 16 Wt 51.5 kg (113 lb 8.6 oz) LMP 07/27/2024 (Exact Date) SpO2 98% BMI 21.16 kg/m . Vital signs reviewed by this provider. APPEARANCE Well appearing, alert, in no acute distress, well-hydrated, well nourished. EYES conjunctiva and sclera normal. Ears: R TM - retracted, L TM - clear with good landmarks, nl light reflex THROAT normal, no erythema NECK Supple, no adenopathy; thyroid symmetric, normal size, no bruits HEART RRR with normal S1 and S2, no murmurs, no gallops, no JVD appreciated LUNG clear to auscultation. No wheezes, rhonchi or rales SKIN Skin color, texture, turgor normal, no suspicious rashes or lesions Meningococcal B Vaccine: Consider Based On Risk(1 of 2 - Patient Seeks Protection) Never done Spirometry Never done GC (Gonorrhea) Screening (18-24) Never done Cervical Cancer Screening Never done Influenza Vaccine(1) due on 05/24/2024 Covid-19 Vaccine(3 - 2023- season) due on 05/24/2024 DTaP,Tdap,Td Vaccine(7 - Td or Tdap) due on 2024 Chlamydia Screening (18-24) due on 07/20/2025 Depression Screening due on 07/20/2025 Anxiety Screening due on 07/20/2025 Annual PCP Team Chronic Disease Visit due on 08/18/2025 Hepatitis B Vaccine Completed HPV Vaccine Completed Hepatitis C Screening Completed HIV Screening Completed ASSESSMENT/PLAN: 1. Acute otitis media, left - ICD9: 382.9, ICD10: H66.92 (primary diagnosis) - improving - no red flag symptoms or exam findings - red flag symptoms discussed, verbalizes understanding - discussed importance of completing prescribed antibiotic, verbalizes understanding - prescription for Zofran given to take prior to antibiotic - ONDANSETRON 4 MG DISINTEGRATING TABLET - follow-up if symptoms fail to resolve 2. Perforation of right tympanic membrane - ICD9: 384.20, ICD10: H72.91 - plan as in #1 3. Decreased hearing of right ear - ICD9: 389.9, ICD10: H91.91 - may use Flonase nasal spray 1-2 sprays, rinse mouth after - follow-up if not improving over the next couple of weeks - no red flag symptoms or exam findings - red flag symptoms discussed, verbalizes understanding - will refer to ENT if persists Fatuma Jackson APRN.CNP Prescription instructions reviewed with patient as applicable. Patient advised if symptoms do not improve or if symptoms worsen sooner, to contact their primary care physician. Potential red flag symptoms discussed with the patient. Reviewed appropriate action plan to take if red flag symptoms occur. Patient agreeable to treatment plan. Medical Decision Making: Problems: Low: Acute, uncomplicated illness or injury Risk: Low: Low risk from testing/treatment Moderate: Drug management Medical Decision Making Level: 3 - Low documented in this encounter [facility] 08-15-2024 Telephone encounter Note Reason for Call: Difficulty hearing, ear infection Outcome: Advised to See PCP in 24 Hours. Patient verbalized understanding and is agreeable to the plan. Reviewed Express Care/Urgent Care Options. She will head to [facility] tomorrow. Reason for Disposition [1] Taking antibiotic > 48 hours (2 days) and [2] fever persists or recurs Answer Assessment - Initial Assessment Questions 1. ANTIBIOTIC: Augmentin 2. ONSET: - Initially on Amoxicllin and took 3 doses and then switched to Augmentin on 08/15/24 3. LOCATION: - Started in right ear and now moved to left ear 4. PAIN: Pain? 5/10 Location of pain? Left ear Description of pain? Sharp, stabbing Duration of pain? constant Pain relief methods/effectiveness? Tylenol - helps for about 2 hours 5. FEVER: Temperature: 101 F Forehead - Now 99 F by forehead 6. DISCHARGE: - Right ear producing clear/yellow discharge. 7. OTHER SYMPTOMS: - nausea, dizziness, 8. : Denies First day of last period: Protocols used: Ear - Otitis Media Follow-up [id number] [facility] 08-15-2024 Miscellaneous Notes Reason for Call: Difficulty hearing, ear infection Outcome: Advised to See PCP in 24 Hours. Patient verbalized understanding and is agreeable to the plan. Reviewed Express Care/Urgent Care Options. She will head to [facility] tomorrow. Reason for Disposition [1] Taking antibiotic > 48 hours (2 days) and [2] fever persists or recurs Answer Assessment - Initial Assessment Questions 1. ANTIBIOTIC: Augmentin 2. ONSET: - Initially on Amoxicllin and took 3 doses and then switched to Augmentin on 08/15/24 3. LOCATION: - Started in right ear and now moved to left ear 4. PAIN: Pain? 5/10 Location of pain? Left ear Description of pain? Sharp, stabbing Duration of pain? constant Pain relief methods/effectiveness? Tylenol - helps for about 2 hours 5. FEVER: Temperature: 101 F Forehead - Now 99 F by forehead 6. DISCHARGE: - Right ear producing clear/yellow discharge. 7. OTHER SYMPTOMS: - nausea, dizziness, 8. : Denies First day of last period: 07/28.24 Protocols used: Ear - Otitis Media Follow-up [id number] documented in this encounter [facility] 08-14-2024 Telephone encounter Note Phoned patient went over notes below from Dr Garsia with understanding. Aware rx sent to pharmacy. [facility] 08-14-2024 Miscellaneous Notes Phoned patient went over notes below from Dr Garsia with understanding. Aware rx sent to pharmacy. Rx sent for tessalon for cough. Take as directed and should not make her drowsy. Could try OTC Delsym instead if tessalon not helping. Continue treatment for ear infection. Call with new or worsening symptoms. Patient calling she has been in express care several times this week. She is asking for something for her cough. She has ear infection, and dry cough. She can not lay down without coughing all the time. she is not taking any otc cough syrup. [email or web address]. Please advise documented in this encounter [facility] 08-14-2024 Telephone encounter Note Rx sent for tessalon for cough. Take as directed and should not make her drowsy. Could try OTC Delsym instead if tessalon not helping. Continue treatment for ear infection. Call with new or worsening symptoms. [facility] 08-14-2024 Telephone encounter Note Patient calling she has been in express care several times this week. She is asking for something for her cough. She has ear infection, and dry cough. She can not lay down without coughing all the time. she is not taking any otc cough syrup. [facility]. Please advise [facility] 08-12-2024 Note HNO ID: [id number] Author: AUDI TINOCO APRN.[employer] Service: ? Author Type: Nurse Practitioner Type: Progress Notes Filed: 08/12/2024 11:17 Note Text: Subjective HPI HPI Blaze A Day is a 24 year old female who presents today for CC of rght ear pain worsening since yesterday. Started amox yesterday, dx otitis media. Symptoms are worsened by nothing. Recent uri. Nonsmoker. Denies possibility of being . .Patient presents with: Ear Pain: right, seen yesterday given amoxicillin, started draining today PAST MEDICAL HISTORY Diagnosis Date Asthma Eczema Menarche aged 12 yrs Patellar instability of right knee PMH - PAST MEDICAL HISTORY OF hole in lung @ -resolved on it's own PAST SURGICAL HISTORY Procedure Laterality Date ADENOIDECTOMY HX 12/2010 Dr. Ramírez PAST SURGICAL HISTORY OF cyst removal under tongue TONSILLECTOMY HX 12/2010 Dr. Ramírez TOOTH EXTRACTION 2019 wisdom teeth ALLERGIES Cats, Dogs, Lexapro [Escitalopram], and Seasonal Allergies MEDICATIONS amoxicillin (AMOXIL) 875 mg tablet Take 1 tablet by mouth two times a day for 7 days. albuterol (PROVENTIL) 2.5 mg /3 mL (0.083 %) nebulizer solution Use 3 mL via nebulizer every 4 hours as needed. OVER 5-15 MINUTES. FOR WHEEZING AND SHORTNESS OF BREATH. ProAir RespiClick 90 mcg/actuation breath activated (albuterol sulfate) Inhale 2 Puffs as instructed every 4 hours as needed. fluticasone (FLOVENT HFA) 110 mcg/actuation inhaler Inhale 1 puff twice daily. Via spacer then rinse and gargle with water. amoxicillin-clavulanate potassium (AUGMENTIN) 875-125 mg per tablet Take 1 tablet by mouth two times a day for 7 days. fluticasone (FLONASE) 50 mcg/actuation nasal spray Use 2 Sprays in each nostril once daily. Rinse mouth after use. FAMILY HISTORY Problem Relation Age of Onset other (Rheumatoid arthrits) Mother Diabetes Mother Ischemic Heart Disease Father Cancer Father Hypertension Maternal Grandmother Diabetes Maternal Grandmother Hypertension Maternal Grandfather Thyroid Maternal Grandfather COPD Maternal Grandfather other (Unknown) Paternal Grandmother other (Unknown) Paternal Grandfather Social History Tobacco Use Smoking status: Never Passive exposure: Yes Smokeless tobacco: Never Tobacco comments: Smokers go outside Vaping Use Vaping status: Never Used Substance Use Topics Alcohol use: Yes Comment: occasioanl Drug use: No Review of Systems Constitutional: Negative for fever. HENT: Positive for congestion, ear discharge and ear pain. Negative for nosebleeds and sore throat. Respiratory: Negative for shortness of breath and wheezing. Cardiovascular: Negative for chest pain. Musculoskeletal: Negative for neck pain. Skin: Negative for itching and rash. Objective Blood pressure 122/72, pulse (!) 122, temperature 37.2 ?C (99 ?F), resp. rate 18, weight 52.5 kg (115 lb 11.9 oz), last menstrual period 07/27/2024, SpO2 98%. Physical Exam Constitutional: General: She is not in acute distress. Appearance: She is not toxic-appearing or diaphoretic. HENT: Head: Normocephalic and atraumatic. Right Ear: Hearing and external ear normal. Tympanic membrane is erythematous and bulging (severe). Tympanic membrane is not perforated. Pulmonary: Effort: Pulmonary effort is normal. No accessory muscle usage or respiratory distress. Lymphadenopathy: Cervical: No cervical adenopathy. Right cervical: No superficial cervical adenopathy. Left cervical: No superficial cervical adenopathy. Neurological: Mental Status: She is alert and oriented to person, place, and time. ASSESSMENT/PLAN: 1. Acute otitis media, right - ICD9: 382.9, ICD10: H66.91 Stop amox, change to augmentin - Will begin treatment with as per antibiotic as written, see orders - Supportive care with plenty of fluids, rest, and analgesia prn. - Follow up in 3-5 days if symptoms persist or worsen. - AMOXICILLIN 875 MG-POTASSIUM CLAVULANATE 125 MG TABLET - FLUTICASONE PROPIONATE 50 MCG/ACTUATION NASAL SPRAY,SUSPENSION Audi Tinoco APRN.LUDY [facility] 08-12-2024 History of Present illness Narrative Subjective HPI HPI Blaze A Day is a 24 year old female who presents today for CC of rght ear pain worsening since yesterday. Started amox yesterday, dx otitis media. Symptoms are worsened by nothing. Recent uri. Nonsmoker. Denies possibility of being . .Patient presents with: Ear Pain: right, seen yesterday given amoxicillin, started draining today PAST MEDICAL HISTORY Diagnosis Date Asthma Eczema Menarche aged 12 yrs Patellar instability of right knee PMH - PAST MEDICAL HISTORY OF hole in lung @ -resolved on it's own PAST SURGICAL HISTORY Procedure Laterality Date ADENOIDECTOMY HX 12/2010 Dr. Ramríez PAST SURGICAL HISTORY OF cyst removal under tongue TONSILLECTOMY HX 12/2010 Dr. Ramírez TOOTH EXTRACTION 2019 wisdom teeth ALLERGIES Cats, Dogs, Lexapro [Escitalopram], and Seasonal Allergies MEDICATIONS amoxicillin (AMOXIL) 875 mg tablet Take 1 tablet by mouth two times a day for 7 days. albuterol (PROVENTIL) 2.5 mg /3 mL (0.083 %) nebulizer solution Use 3 mL via nebulizer every 4 hours as needed. OVER 5-15 MINUTES. FOR WHEEZING AND SHORTNESS OF BREATH. ProAir RespiClick 90 mcg/actuation breath activated (albuterol sulfate) Inhale 2 Puffs as instructed every 4 hours as needed. fluticasone (FLOVENT HFA) 110 mcg/actuation inhaler Inhale 1 puff twice daily. Via spacer then rinse and gargle with water. amoxicillin-clavulanate potassium (AUGMENTIN) 875-125 mg per tablet Take 1 tablet by mouth two times a day for 7 days. fluticasone (FLONASE) 50 mcg/actuation nasal spray Use 2 Sprays in each nostril once daily. Rinse mouth after use. FAMILY HISTORY Problem Relation Age of Onset other (Rheumatoid arthrits) Mother Diabetes Mother Ischemic Heart Disease Father Cancer Father Hypertension Maternal Grandmother Diabetes Maternal Grandmother Hypertension Maternal Grandfather Thyroid Maternal Grandfather COPD Maternal Grandfather other (Unknown) Paternal Grandmother other (Unknown) Paternal Grandfather Social History Tobacco Use Smoking status: Never Passive exposure: Yes Smokeless tobacco: Never Tobacco comments: Smokers go outside Vaping Use Vaping status: Never Used Substance Use Topics Alcohol use: Yes Comment: occasioanl Drug use: No Review of Systems Constitutional: Negative for fever. HENT: Positive for congestion, ear discharge and ear pain. Negative for nosebleeds and sore throat. Respiratory: Negative for shortness of breath and wheezing. Cardiovascular: Negative for chest pain. Musculoskeletal: Negative for neck pain. Skin: Negative for itching and rash. Objective Blood pressure 122/72, pulse (!) 122, temperature 37.2 C (99 F), resp. rate 18, weight 52.5 kg (115 lb 11.9 oz), last menstrual period 07/27/2024, SpO2 98%. Physical Exam Constitutional: General: She is not in acute distress. Appearance: She is not toxic-appearing or diaphoretic. HENT: Head: Normocephalic and atraumatic. Right Ear: Hearing and external ear normal. Tympanic membrane is erythematous and bulging (severe). Tympanic membrane is not perforated. Pulmonary: Effort: Pulmonary effort is normal. No accessory muscle usage or respiratory distress. Lymphadenopathy: Cervical: No cervical adenopathy. Right cervical: No superficial cervical adenopathy. Left cervical: No superficial cervical adenopathy. Neurological: Mental Status: She is alert and oriented to person, place, and time. ASSESSMENT/PLAN: 1. Acute otitis media, right - ICD9: 382.9, ICD10: H66.91 Stop amox, change to augmentin - Will begin treatment with as per antibiotic as written, see orders - Supportive care with plenty of fluids, rest, and analgesia prn. - Follow up in 3-5 days if symptoms persist or worsen. - AMOXICILLIN 875 MG-POTASSIUM CLAVULANATE 125 MG TABLET - FLUTICASONE PROPIONATE 50 MCG/ACTUATION NASAL SPRAY,SUSPENSION Audi Tinoco APRN.[employer] documented in this encounter [facility] 08-11-2024 Instructions Rossy Johnson APRN.[employer] - 08/11/2024 2:01 PM EST ASSESSMENT/PLAN: 1. Other acute nonsuppurative otitis media of right ear, recurrence not specified - ICD9: 381.00, ICD10: H65.191 (primary diagnosis) - Will begin treatment with Amoxicillin for 7 days - Supportive care with plenty of fluids, rest, and analgesia prn. 2. Acute cough - ICD9: 786.2, ICD10: R05.1 - suspect viral. - supportive care - Follow-up with your PCP in 3-5 days if symptoms have not improved or sooner if symptoms worsen - Discussed red flags and need for immediate medical evaluation if any occur. - Discussed supportive care treatment with fluids, rest and analgesia. - Discussed expected course of illness Rossy Johnson APRN.[employer] documented in this encounter [facility] 08-11-2024 Note HNO ID: [id number] Author: ROSSY JOHNSON APRN.[employer] Service: ? Author Type: Nurse Practitioner Type: Progress Notes Filed: 08/11/2024 14:08 Note Text: Subjective Ear Problem Associated symptoms include coughing. Pertinent negatives include no diarrhea, sore throat or vomiting. Francisco Fulton Day is a 24 year old female who presents with cough, bilateral ear pressure, and feeling dizzy. She has had some nausea due to dizziness. She was seen here on 08/08 for sore throat and strep test was negative. She states fever at home has been 102 degrees F. She has taken tylenol at home. Review of Systems Constitutional: Positive for fever. Negative for chills and malaise/fatigue. HENT: Positive for congestion and ear pain. Negative for sore throat. Respiratory: Positive for cough, sputum production and shortness of breath. Cardiovascular: Negative for chest pain. Gastrointestinal: Positive for nausea. Negative for diarrhea and vomiting. Musculoskeletal: Negative for myalgias. Neurological: Positive for dizziness. BP 128/74 Pulse 112 Temp 37.4 ?C (99.3 ?F) Resp 18 Wt 52.7 kg (116 lb 2.9 oz) LMP 07/27/2024 (Exact Date) SpO2 99% BMI 21.66 kg/m? PAST MEDICAL HISTORY Diagnosis Date Asthma Eczema Menarche aged 12 yrs Patellar instability of right knee PMH - PAST MEDICAL HISTORY OF hole in lung @ -resolved on it's own PAST SURGICAL HISTORY Procedure Laterality Date ADENOIDECTOMY HX 12/2010 Dr. Ramírez PAST SURGICAL HISTORY OF cyst removal under tongue TONSILLECTOMY HX 12/2010 Dr. Ramírez TOOTH EXTRACTION 2019 wisdom teeth ALLERGIES Cats, Dogs, Lexapro [Escitalopram], and Seasonal Allergies MEDICATIONS albuterol (PROVENTIL) 2.5 mg /3 mL (0.083 %) nebulizer solution Use 3 mL via nebulizer every 4 hours as needed. OVER 5-15 MINUTES. FOR WHEEZING AND SHORTNESS OF BREATH. ProAir RespiClick 90 mcg/actuation breath activated (albuterol sulfate) Inhale 2 Puffs as instructed every 4 hours as needed. fluticasone (FLOVENT HFA) 110 mcg/actuation inhaler Inhale 1 puff twice daily. Via spacer then rinse and gargle with water. FAMILY HISTORY Problem Relation Age of Onset other (Rheumatoid arthrits) Mother Diabetes Mother Ischemic Heart Disease Father Cancer Father Hypertension Maternal Grandmother Diabetes Maternal Grandmother Hypertension Maternal Grandfather Thyroid Maternal Grandfather COPD Maternal Grandfather other (Unknown) Paternal Grandmother other (Unknown) Paternal Grandfather Social History Tobacco Use Smoking status: Never Passive exposure: Yes Smokeless tobacco: Never Tobacco comments: Smokers go outside Vaping Use Vaping status: Never Used Substance Use Topics Alcohol use: Yes Comment: occasioanl Drug use: No Objective Physical Exam Vitals and nursing note reviewed. Constitutional: General: She is not in acute distress. Appearance: Normal appearance. She is not ill-appearing. HENT: Right Ear: Ear canal and external ear normal. Tympanic membrane is erythematous and bulging. Left Ear: Tympanic membrane, ear canal and external ear normal. Nose: Nose normal. Mouth/Throat: Mouth: Mucous membranes are moist. Pharynx: Oropharynx is clear. Uvula midline. No oropharyngeal exudate or posterior oropharyngeal erythema. Cardiovascular: Rate and Rhythm: Normal rate and regular rhythm. Heart sounds: Normal heart sounds. Pulmonary: Effort: Pulmonary effort is normal. No respiratory distress. Breath sounds: Normal breath sounds. No wheezing or rales. Musculoskeletal: Cervical back: Neck supple. Lymphadenopathy: Cervical: No cervical adenopathy. Skin: General: Skin is warm and dry. Findings: No erythema or rash. Neurological: Mental Status: She is alert. ASSESSMENT/PLAN: 1. Other acute nonsuppurative otitis media of right ear, recurrence not specified - ICD9: 381.00, ICD10: H65.191 (primary diagnosis) - Will begin treatment with Amoxicillin for 7 days - Supportive care with plenty of fluids, rest, and analgesia prn. 2. Acute cough - ICD9: 786.2, ICD10: R05.1 - suspect viral. - supportive care - Follow-up with your PCP in 3-5 days if symptoms have not improved or sooner if symptoms worsen - Discussed red flags and need for immediate medical evaluation if any occur. - Discussed supportive care treatment with fluids, rest and analgesia. - Discussed expected course of illness Rossy Johnson APRN.[facility] 08-11-2024 History of Present illness Narrative Subjective Ear Problem Associated symptoms include coughing. Pertinent negatives include no diarrhea, sore throat or vomiting. Francisco Fulton Day is a 24 year old female who presents with cough, bilateral ear pressure, and feeling dizzy. She has had some nausea due to dizziness. She was seen here on 08/08 for sore throat and strep test was negative. She states fever at home has been 102 degrees F. She has taken tylenol at home. Review of Systems Constitutional: Positive for fever. Negative for chills and malaise/fatigue. HENT: Positive for congestion and ear pain. Negative for sore throat. Respiratory: Positive for cough, sputum production and shortness of breath. Cardiovascular: Negative for chest pain. Gastrointestinal: Positive for nausea. Negative for diarrhea and vomiting. Musculoskeletal: Negative for myalgias. Neurological: Positive for dizziness. BP 128/74 Pulse 112 Temp 37.4 C (99.3 F) Resp 18 Wt 52.7 kg (116 lb 2.9 oz) LMP 07/27/2024 (Exact Date) SpO2 99% BMI 21.66 kg/m PAST MEDICAL HISTORY Diagnosis Date Asthma Eczema Menarche aged 12 yrs Patellar instability of right knee PMH - PAST MEDICAL HISTORY OF hole in lung @ -resolved on it's own PAST SURGICAL HISTORY Procedure Laterality Date ADENOIDECTOMY HX 12/2010 Dr. Ramírez PAST SURGICAL HISTORY OF cyst removal under tongue TONSILLECTOMY HX 12/2010 Dr. Ramírez TOOTH EXTRACTION 2019 wisdom teeth ALLERGIES Cats, Dogs, Lexapro [Escitalopram], and Seasonal Allergies MEDICATIONS albuterol (PROVENTIL) 2.5 mg /3 mL (0.083 %) nebulizer solution Use 3 mL via nebulizer every 4 hours as needed. OVER 5-15 MINUTES. FOR WHEEZING AND SHORTNESS OF BREATH. ProAir RespiClick 90 mcg/actuation breath activated (albuterol sulfate) Inhale 2 Puffs as instructed every 4 hours as needed. fluticasone (FLOVENT HFA) 110 mcg/actuation inhaler Inhale 1 puff twice daily. Via spacer then rinse and gargle with water. FAMILY HISTORY Problem Relation Age of Onset other (Rheumatoid arthrits) Mother Diabetes Mother Ischemic Heart Disease Father Cancer Father Hypertension Maternal Grandmother Diabetes Maternal Grandmother Hypertension Maternal Grandfather Thyroid Maternal Grandfather COPD Maternal Grandfather other (Unknown) Paternal Grandmother other (Unknown) Paternal Grandfather Social History Tobacco Use Smoking status: Never Passive exposure: Yes Smokeless tobacco: Never Tobacco comments: Smokers go outside Vaping Use Vaping status: Never Used Substance Use Topics Alcohol use: Yes Comment: occasioanl Drug use: No Objective Physical Exam Vitals and nursing note reviewed. Constitutional: General: She is not in acute distress. Appearance: Normal appearance. She is not ill-appearing. HENT: Right Ear: Ear canal and external ear normal. Tympanic membrane is erythematous and bulging. Left Ear: Tympanic membrane, ear canal and external ear normal. Nose: Nose normal. Mouth/Throat: Mouth: Mucous membranes are moist. Pharynx: Oropharynx is clear. Uvula midline. No oropharyngeal exudate or posterior oropharyngeal erythema. Cardiovascular: Rate and Rhythm: Normal rate and regular rhythm. Heart sounds: Normal heart sounds. Pulmonary: Effort: Pulmonary effort is normal. No respiratory distress. Breath sounds: Normal breath sounds. No wheezing or rales. Musculoskeletal: Cervical back: Neck supple. Lymphadenopathy: Cervical: No cervical adenopathy. Skin: General: Skin is warm and dry. Findings: No erythema or rash. Neurological: Mental Status: She is alert. ASSESSMENT/PLAN: 1. Other acute nonsuppurative otitis media of right ear, recurrence not specified - ICD9: 381.00, ICD10: H65.191 (primary diagnosis) - Will begin treatment with Amoxicillin for 7 days - Supportive care with plenty of fluids, rest, and analgesia prn. 2. Acute cough - ICD9: 786.2, ICD10: R05.1 - suspect viral. - supportive care - Follow-up with your PCP in 3-5 days if symptoms have not improved or sooner if symptoms worsen - Discussed red flags and need for immediate medical evaluation if any occur. - Discussed supportive care treatment with fluids, rest and analgesia. - Discussed expected course of illness Rossy Johnson APRN.LUDY documented in this encounter [facility] 08-11-2024 Telephone encounter Note Mother reports patient was seen in on 08-08-24 for sore throat. Reports strep was negative. Reports pt is gargling with warm salt water, using throat lozenges, and doing everything [facility] instructed her to do, but feeling worse now, developed a cough yesterday, and today pt unable to hear out of right ear. No open appts today, but offered appt tomorrow with pcp. Mother states she will discuss with pt, and may take pt back to [facility] today- if not- will call back to schedule appt with pcp. [facility] 08-11-2024 Miscellaneous Notes Mother reports patient was seen in [facility] on 08-08-24 for sore throat. Reports strep was negative. Reports pt is gargling with warm salt water, using throat lozenges, and doing everything [facility] instructed her to do, but feeling worse now, developed a cough yesterday, and today pt unable to hear out of right ear. No open appts today, but offered appt tomorrow with pcp. Mother states she will discuss with pt, and may take pt back to [facility] today- if not- will call back to schedule appt with pcp. documented in this encounter [facility] 08-08-2024 Note HNO ID: [id number] Author: BITA MULLEN PA Service: ? Author Type: Physician Superintendent Plant Type: Progress Notes Filed: 08/08/2024 15:21 Note Text: This note was created using [email or web address] Subjective Blaze A Day is a 24 year old female. HPI 24-year-old female presents for sore throat. Patient states she started getting sore throat about 2 days ago. She has had low-grade fevers of 99 ?F at home. She does not really have a cough or congestion. She is reporting that her right ear hurts slightly. No vomiting or diarrhea. Still eating and drinking. No other complaint. PAST MEDICAL HISTORY Diagnosis Date Asthma Eczema Menarche aged 12 yrs Patellar instability of right knee PMH - PAST MEDICAL HISTORY OF hole in lung @ -resolved on it's own PAST SURGICAL HISTORY Procedure Laterality Date ADENOIDECTOMY HX 12/2010 Dr. Ramírez PAST SURGICAL HISTORY OF cyst removal under tongue TONSILLECTOMY HX 12/2010 Dr. Ramírez TOOTH EXTRACTION 2019 wisdom teeth ALLERGIES Cats, Dogs, Lexapro [Escitalopram], and Seasonal Allergies MEDICATIONS albuterol (PROVENTIL) 2.5 mg /3 mL (0.083 %) nebulizer solution Use 3 mL via nebulizer every 4 hours as needed. OVER 5-15 MINUTES. FOR WHEEZING AND SHORTNESS OF BREATH. ProAir RespiClick 90 mcg/actuation breath activated (albuterol sulfate) Inhale 2 Puffs as instructed every 4 hours as needed. fluticasone (FLOVENT HFA) 110 mcg/actuation inhaler Inhale 1 puff twice daily. Via spacer then rinse and gargle with water. FAMILY HISTORY Problem Relation Age of Onset other (Rheumatoid arthrits) Mother Diabetes Mother Ischemic Heart Disease Father Cancer Father Hypertension Maternal Grandmother Diabetes Maternal Grandmother Hypertension Maternal Grandfather Thyroid Maternal Grandfather COPD Maternal Grandfather other (Unknown) Paternal Grandmother other (Unknown) Paternal Grandfather Social History Tobacco Use Smoking status: Never Passive exposure: Yes Smokeless tobacco: Never Tobacco comments: Smokers go outside Vaping Use Vaping status: Never Used Substance Use Topics Alcohol use: Yes Comment: occasioanl Drug use: No Review of Systems Constitutional: Positive for fever. Negative for chills. HENT: Positive for ear pain and sore throat. Negative for congestion. Respiratory: Negative for cough and shortness of breath. Cardiovascular: Negative for chest pain. Gastrointestinal: Negative for diarrhea and vomiting. Objective BP 133/94 Pulse (!) 121 Temp 36.9 ?C (98.4 ?F) Resp 20 Wt 53 kg (116 lb 13.5 oz) LMP 07/27/2024 (Exact Date) SpO2 99% BMI 21.78 kg/m? Physical Exam Vitals and nursing note reviewed. Constitutional: General: She is not in acute distress. Appearance: Normal appearance. She is not toxic-appearing. HENT: Right Ear: Tympanic membrane and ear canal normal. Left Ear: Tympanic membrane and ear canal normal. Nose: Nose normal. Mouth/Throat: Mouth: Mucous membranes are moist. Pharynx: Uvula midline. Oropharyngeal exudate present. Tonsils: 0 on the right. 0 on the left. Comments: Right-sided posterior oropharyngeal exudate. Tonsillectomy present. Uvula midline. Handling secretions. Eyes: Conjunctiva/sclera: Conjunctivae normal. Cardiovascular: Rate and Rhythm: Normal rate and regular rhythm. Pulmonary: Effort: Pulmonary effort is normal. Breath sounds: Normal breath sounds. Skin: General: Skin is warm and dry. Neurological: Mental Status: She is alert. Assessment and Plan ASSESSMENT/PLAN: 1. Sore throat - ICD9: 462, ICD10: J02.9 - suspect viral - Group A strep molecular testing negative - Discussed supportive care treatment with fluids, rest and analgesia. - The patient may also use warm salt water gargles, throat lozenges and/or OTC throat spray as needed. -Follow-up in 3 to 5 days if symptoms persist - STREP A MOLECULAR (POC) Diagnosis and treatment plan were discussed and questions were answered to the patient's satisfaction. Pt acknowledged understanding of concepts and follow up plan. Specific signs and symptoms that would indicate the need for higher level of care were discussed in detail warranting prompt ER evaluation. CHONG Brown [facility] 08-08-2024 History of Present illness Narrative This note was created using [employer]. Subjective Blaze A Day is a 24 year old female. HPI 24-year-old female presents for sore throat. Patient states she started getting sore throat about 2 days ago. She has had low-grade fevers of 99 F at home. She does not really have a cough or congestion. She is reporting that her right ear hurts slightly. No vomiting or diarrhea. Still eating and drinking. No other complaint. PAST MEDICAL HISTORY Diagnosis Date Asthma Eczema Menarche aged 12 yrs Patellar instability of right knee PMH - PAST MEDICAL HISTORY OF hole in lung @ -resolved on it's own PAST SURGICAL HISTORY Procedure Laterality Date ADENOIDECTOMY HX 12/2010 Dr. Ramírez PAST SURGICAL HISTORY OF cyst removal under tongue TONSILLECTOMY HX 12/2010 Dr. Ramírez TOOTH EXTRACTION 2019 wisdom teeth ALLERGIES Cats, Dogs, Lexapro [Escitalopram], and Seasonal Allergies MEDICATIONS albuterol (PROVENTIL) 2.5 mg /3 mL (0.083 %) nebulizer solution Use 3 mL via nebulizer every 4 hours as needed. OVER 5-15 MINUTES. FOR WHEEZING AND SHORTNESS OF BREATH. ProAir RespiClick 90 mcg/actuation breath activated (albuterol sulfate) Inhale 2 Puffs as instructed every 4 hours as needed. fluticasone (FLOVENT HFA) 110 mcg/actuation inhaler Inhale 1 puff twice daily. Via spacer then rinse and gargle with water. FAMILY HISTORY Problem Relation Age of Onset other (Rheumatoid arthrits) Mother Diabetes Mother Ischemic Heart Disease Father Cancer Father Hypertension Maternal Grandmother Diabetes Maternal Grandmother Hypertension Maternal Grandfather Thyroid Maternal Grandfather COPD Maternal Grandfather other (Unknown) Paternal Grandmother other (Unknown) Paternal Grandfather Social History Tobacco Use Smoking status: Never Passive exposure: Yes Smokeless tobacco: Never Tobacco comments: Smokers go outside Vaping Use Vaping status: Never Used Substance Use Topics Alcohol use: Yes Comment: occasioanl Drug use: No Review of Systems Constitutional: Positive for fever. Negative for chills. HENT: Positive for ear pain and sore throat. Negative for congestion. Respiratory: Negative for cough and shortness of breath. Cardiovascular: Negative for chest pain. Gastrointestinal: Negative for diarrhea and vomiting. Objective BP 133/94 Pulse (!) 121 Temp 36.9 C (98.4 F) Resp 20 Wt 53 kg (116 lb 13.5 oz) LMP 07/27/2024 (Exact Date) SpO2 99% BMI 21.78 kg/m Physical Exam Vitals and nursing note reviewed. Constitutional: General: She is not in acute distress. Appearance: Normal appearance. She is not toxic-appearing. HENT: Right Ear: Tympanic membrane and ear canal normal. Left Ear: Tympanic membrane and ear canal normal. Nose: Nose normal. Mouth/Throat: Mouth: Mucous membranes are moist. Pharynx: Uvula midline. Oropharyngeal exudate present. Tonsils: 0 on the right. 0 on the left. Comments: Right-sided posterior oropharyngeal exudate. Tonsillectomy present. Uvula midline. Handling secretions. Eyes: Conjunctiva/sclera: Conjunctivae normal. Cardiovascular: Rate and Rhythm: Normal rate and regular rhythm. Pulmonary: Effort: Pulmonary effort is normal. Breath sounds: Normal breath sounds. Skin: General: Skin is warm and dry. Neurological: Mental Status: She is alert. Assessment and Plan ASSESSMENT/PLAN: 1. Sore throat - ICD9: 462, ICD10: J02.9 - suspect viral - Group A strep molecular testing negative - Discussed supportive care treatment with fluids, rest and analgesia. - The patient may also use warm salt water gargles, throat lozenges and/or OTC throat spray as needed. -Follow-up in 3 to 5 days if symptoms persist - STREP A MOLECULAR (POC) Diagnosis and treatment plan were discussed and questions were answered to the patient's satisfaction. Pt acknowledged understanding of concepts and follow up plan. Specific signs and symptoms that would indicate the need for higher level of care were discussed in detail warranting prompt ER evaluation. CHONG Brown documented in this encounter [facility] 07-23-2024 Telephone encounter Note Pt viewed results in [employer]. Amarjit Christian LPN [facility] 07-23-2024 Miscellaneous Notes Pt viewed results in [employer]. Amarjit Christian LPN 1st attempt to reach pt by phone without success. No voicemail set up.. Try later. Amarjit Christian LPN ----- Message from Fatuma Jackson APRN.CNP sent at 07/21/2024 3:21 PM EDT ----- Blood work is in acceptable ranges. Fatuma Jackson APRN.LUDY documented in this encounter [facility] 07-21-2024 Telephone encounter Note 1st attempt to reach pt by phone without success. No voicemail set up.. Try later. Amarjit Christian LPN [facility] 07-21-2024 Telephone encounter Note ----- Message from Fatuma Jackson APRN.LUDY sent at 07/21/2024 3:21 PM EDT ----- Blood work is in acceptable ranges. Fatuma Jackson APRN.CNP [facility] 07-20-2024 Fatuma Portillo APRN.CNP - 07/20/2024 2:22 PM EDT [facility] [address] [place] [address] [facility] [address] [place], [place] [id number] [facility] [address] [place] [address] [facility] [address] [place] [address] [address] [place] [address] [facility] [address] [place] [id number] [address], [facility] [phone] documented in this encounter [facility] 07-20-2024 Note HNO ID: [id number] Author: FATUMA JACKSON APRN.[employer] Service: ? Author Type: Nurse Practitioner Type: [...] No history of dysuria, frequency or incontinence HEADING MAKER: Negative for abnormal vaginal bleeding, abnormal vaginal [...] 98 Resp 18 Ht 156 cm (5' 1.42) Wt 53.5 kg (117 lb 15.1 oz) [...] done Influenza Vaccine(1) due on 05/24/2024 Covid-19 Vaccine(3 - 2023- season) due on 05/24/2024 DTaP,Tdap,Td Vaccine(7 - Td or Tdap) due on 2024 Chlamydia Screening (18-24) due on 07/20/2025 Annual PCP Team Chronic Disease Visit due on 07/20/2025 Asthma Control Test due on 07/20/2025 Hepatitis B Vaccine Completed HPV Vaccine Completed ASSESSMENT/PLAN: 1. Encounter for medical examination to establish care - ICD9: V70.9, ICD10: (more content not included)... 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 - Counseling Center [facility] and after hours crisis line - [facility]woman[facility] [employer] phone number or - handout of local [...] ICD9: V79.0, ICD10: Z13.31 - DEPRESSION SCREENING Fatuma Jackson APRN.CNP Prescription instructions reviewed with patient [...] 4 - Moderate documented in this encounter [facility] 05-08-2022 Miscellaneous Notes Update noted. Patient with GI appointment scheduled for 05/22/22. Closing encounter. mEi Davis PA-C Mom was notified of advice [...] Emi Davis PA-C documented in this encounter [facility] 04-13-2022 History of Present illness Narrative PEDIATRIC SICK VISIT SERVICE DATE: 04/13/2022 SUBJECTIVE: Francisco Sanchez is a 21 year old female [...] separate appointment to discuss anxiety more in deptt - All questions answered - Follow up dependent upon lab results Medical Decision Making: Problems: Moderate: New problem with uncertain prognosis Data: Unique source(s) for external note(s) reviewed: 1 Unique test result(s) reviewed: 1 Unique test(s) ordered: 3+ Medical Decision Making Level: 4 - Moderate SIGNATURE: Emi Davis PA-C PATIENT NAME: Francisco Sanchez DATE: April 13, 2022 TIME: 2:52 PM documented in this encounter [facility] 04-11-2022 History of Present illness Narrative Patient [...] Saeed Ryder MD documented in this encounter [facility] 04-03-2022 History of Present illness Narrative Patient [...] time. SIGNATURE: Valencia Ulloa RN PATIENT NAME: Francisco Sanchez DATE: March 19, 2022 TIME: 3:19 PM documented in this encounter [facility] 03-29-2022 History of Present illness Narrative Subjective HPI Nontoxic-appearing female presents urgent care chief complaint diarrhea low-grade temperature and lightheadedness. Duration of diarrhea and fever 4 days. Duration of lightheadedness today. Patient states 3-4 loose stools today. No blood in stools. States she had multiple near syncopal episodes today. Caregiver states patient was in the kitchen when she almost passed out twice. States she had to grab onto the [...] agrees with plan of care. Rakesh Geiger APRN.LUDY documented in this encounter [facility] 08-25-2021 History of Present illness Narrative Radiology Service Progress Note PATIENT NAME: Francisco Sanchez DATE OF SERVICE: August 25, 2021 [...] 2021 10:46 AM documented in this encounter [facility] 06-08-2016 History of Past i llness Narrative Problem Noted Date Resolved Date 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 02/28/2018 Mesenteric adenitis 10/02/2011 11/18/2014 Eczema 02/28/2018 documented as of this encounter (statuses as of 03/29/2022) [facility] History of Past illness Narrative* Problem Noted Date Resolved Date 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 02/28/2018 Mesenteric adenitis 10/02/2011 11/18/2014 Eczema 02/28/2018 documented as of this encounter (statuses as of 04/03/2022) [facility] History of Past illness Narrative* Problem Noted Date Resolved Date 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 02/28/2018 Mesenteric adenitis 10/02/2011 11/18/2014 Eczema 02/28/2018 documented as of this encounter (statuses as of 04/11/2022) [facility] History of Past illness Narrative* Problem Noted Date Resolved Date 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 02/28/2018 Mesenteric adenitis 10/02/2011 11/18/2014 Eczema 02/28/2018 documented as of this encounter (statuses as of 04/16/2022) [facility] History of Past illness Narrative* Problem Noted Date Resolved Date 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 02/28/2018 Mesenteric adenitis 10/02/2011 11/18/2014 Eczema 02/28/2018 documented as of this encounter (statuses as of 05/08/2022) [facility] note* Diagnosis Viral illness- Primary Unspecified viral infection, in conditions classified elsewhere and of unspecified site Dizziness Dizziness and giddiness [facility] Diagnosis Change in bowel habits- Primary Other symptoms involving digestive system [facility] Diagnosis Abdominal pain, unspecified abdominal location- Primary Bowel habit changes Other symptoms involving digestive system [facility] Diagnosis Change in bowel habits Other symptoms involving digestive system [facility] Diagnosis Foot pain, right Pain in limb [facility] Diagnosis Encounter for medical examination to [...] Screening for depression [facility] Diagnosis Sore throat- Primary Acute pharyngitis [facility] Diagnosis Other acute nonsuppurative otitis media of right ear, recurrence not specified- Primary Acute cough documented in this [facility] Diagnosis Acute otitis media, right- Primary Unspecified otitis media documented [facility] this [facility] Diagnosis Acute otitis media, left- Primary Unspecified otitis media Perforation of right tympanic membrane Perforation of tympanic membrane, unspecified Decreased hearing of right ear documented [facility] this [facility] Diagnosis Encounter for immunization- Primary Need for other specified prophylactic vaccination against single bacterial disease [facility] Diagnosis Ear infection- Primary Unspecified otitis media [facility] Diagnosis Encounter for immunization Need for other specified prophylactic vaccination against single bacterial disease documented in this encounter [facility] for referral (narrative)* Diagnostic Procedure Only (Routine) - Closed Specialty Diagnoses / Procedures Referred By Contac t Referred To Contact XR IMAGING Diagnoses Change in bowel habits Procedures XR ABDOMEN 1V SUPINE RADIOLOGIC EXAM ABDOMEN 1 VIEW Saeed Ryder MD [address] [place] [address] Xr Imaging Referral ID Status Reason Start Date Expiration Date V isits Requested Visits Authorized [id number] Closed Auto-Generate d Referral 04/11/2022 05/11/2023 1 1 * Consult, Test, Treat (Routine) - Authorized Specialty Diagnoses / Procedures Referred By Contac t Referred To Contact Gastroenterology Diagnoses Change in bowel habits Procedures CONSULT TO GASTROENTEROLOGY OFFICE/OUTPATIENT [facility] 60-74 MINUTES Saeed Ryder MD [address] [place] [address] Referral ID Status Reason Start Date Expiration Date Visits Requested Visits Authorized [id number] Authorized PCP Requested Referral 04/11/2022 04/11/2023 1 1 [facility] for referral (narrative)* Diagnostic Procedure Only (Routine) - Closed Specialty Diagnoses / Procedures Referred By Contac t Referred To Contact XR IMAGING Diagnoses Change in bowel habits Procedures XR ABDOMEN 1V SUPINE RADIOLOGIC EXAM ABDOMEN 1 VIEW Saeed Ryder MD [address] [place] [address] [place] [address] Referral ID Status Reason Start Date Expiration Date V isits Requested Visits Authorized [id number] Closed Auto-Generate d Referral 04/11/2022 05/11/2023 1 1 [facility] for referral (narrative)* Diagnostic Procedure Only (Urgent) - Closed Specialty Diagnoses / Procedures Referred By Contac t Referred To Contact XR IMAGING Diagnoses Foot pain, right Procedures XR FOOT GENERAL 3V AP/LAT/OBL RIGHT X-RAY FOOT MINIMUM 3 VIEWS Gisselle Cook, LAUNDRY ROUTEMAN.[employer] [id number] [place] [id number] [place] [address] Referral ID Status Reason Start Date Expiration Date V isits Requested Visits Authorized [id number] Closed Auto-Generate d Referral 08/25/2021 09/24/2022 1 1 [facility] for visit Narrative* Diagnostic Procedure Only (Routine) - Closed Specialty Diagnoses / Procedures Referred By Contac t Referred To Contact XR IMAGING Diagnoses Change in bowel habits Procedures XR ABDOMEN 1V SUPINE RADIOLOGIC EXAM ABDOMEN 1 VIEW Saeed Ryder MD [address] [place] [address] [place] [address] Referral ID Status Reason Start Date Expiration Date V isits Requested Visits Authorized [id number] Closed Auto-Generate d Referral 04/11/2022 05/11/2023 1 1 [facility] for visit Narrative* Diagnostic Procedure Only (Urgent) - Closed Specialty Diagnoses / Procedures Referred By Contac t Referred To Contact XR IMAGING Diagnoses Foot pain, right Procedures XR FOOT GENERAL 3V AP/LAT/OBL RIGHT X-RAY FOOT MINIMUM 3 VIEWS Gisselle Cook APRN.[employer] [id number] [place] [id number] [place] [address] Referral ID Status Reason Start Date Expiration Date V isits Requested Visits Authorized [id number] Closed Auto-Generate d Referral 08/25/2021 09/24/2022 1 1 [facility] Reason for Referral Specialty Diagnoses / Procedures Referred By Contac t Referred To Contact Diagnoses Mild intermittent asthma with acute exacerbation PodlogFatuma crawford APRN.[employer] [address] [place] [address] Referral ID Status Reason Start Date Expiration Date V isits Requested Visits Authorized [id number] Pending Review 07/20/2024 09/18/2024 1 1 Specialty Diagnoses / Procedures Referred By Contac t Referred To Contact Ent - Otolaryngology Diagnoses Ear infection Procedures CONSULT TO ENT OFFICE/OUTPATIENT [facility] 60 MINUTES PodlogarFatuma APRN.[employer] [address] [place] [address] Referral ID Status Reason Start Date Expiration Date Visits Requested Visits Authorized [id number] Authorized PCP Requested Referral 08/31/2024 08/31/2025 1 1 Summary Purpose Family History No Family History Records FoundNo Family History Records Found Advance Directives No Advanced Directives Records FoundNo Advanced Directives Records Found Additional Source Comments Source Comments (unrecognize d section and content) In the event this informatio n is protected by the Federal Confidentiality of Alcohol and Drug Abuse Patient Records regulations: The Federal rules restrict any use of the information to criminally investigate or prosecute any alcohol or drug abuse patient.[facility] the event this information is protected by the Federal Confidentiality of Alcohol and Drug Abuse Patient Records regulations: The Federal rules restrict any use of the information to criminally investigate or prosecute any alcohol or drug abuse patient.[facility] the event this information is protected by the Federal Confidentiality of Alcohol and Drug Abuse Patient Records regulations: The Federal rules restrict any use of the information to criminally investigate or prosecute any alcohol or drug abuse patient.[facility] the event this information is protected by the Federal Confidentiality of Alcohol and Drug Abuse Patient Records regulations: The Federal rules restrict any use of the information to criminally investigate or prosecute any alcohol or drug abuse patient.[facility] the event this information is protected by the Federal Confidentiality of Alcohol and Drug Abuse Patient Records regulations: The Federal rules restrict any use of the information to criminally investigate or prosecute any alcohol or drug abuse patient.[facility] the event this information is protected by the Federal Confidentiality of Alcohol and Drug Abuse Patient Records regulations: The Federal rules restrict any use of the information to criminally investigate or prosecute any alcohol or drug abuse patient.[facility] the event this information is protected by the Federal Confidentiality of Alcohol and Drug Abuse Patient Records regulations: The Federal rules restrict any use of the information to criminally investigate or prosecute any alcohol or drug abuse patient.[facility] the event this information is protected by the Federal Confidentiality of Alcohol and Drug Abuse Patient Records regulations: The Federal rules restrict any use of the information to criminally investigate or prosecute any alcohol or drug abuse patient.[facility] the event this information is protected by the Federal Confidentiality of Alcohol and Drug Abuse Patient Records regulations: The Federal rules restrict any use of the information to criminally investigate or prosecute any alcohol or drug abuse patient.[facility] the event this information is protected by the Federal Confidentiality of Alcohol and Drug Abuse Patient Records regulations: The Federal rules restrict any use of the information to criminally investigate or prosecute any alcohol or drug abuse patient.[facility] the event this information is protected by the Federal Confidentiality of Alcohol and Drug Abuse Patient Records regulations: The Federal rules restrict any use of the information to criminally investigate or prosecute any alcohol or drug abuse patient.[facility] the event this information is protected by the Federal Confidentiality of Alcohol and Drug Abuse Patient Records regulations: The Federal rules restrict any use of the information to criminally investigate or prosecute any alcohol or drug abuse patient.[facility] the event this information is protected by the Federal Confidentiality of Alcohol and Drug Abuse Patient Records regulations: The Federal rules restrict any use of the information to criminally investigate or prosecute any alcohol or drug abuse patient.[facility] the event this information is protected by the Federal Confidentiality of Alcohol and Drug Abuse Patient Records regulations: The Federal rules restrict any use of the information to criminally investigate or prosecute any alcohol or drug abuse patient.[facility] the event this information is protected by the Federal Confidentiality of Alcohol and Drug Abuse Patient Records regulations: The Federal rules restrict any use of the information to criminally investigate or prosecute any alcohol or drug abuse patient.[facility] the event this information is protected by the Federal Confidentiality of Alcohol and Drug Abuse Patient Records regulations: The Federal rules restrict any use of the information to criminally investigate or prosecute any alcohol or drug abuse patient.[facility] the event this information is protected by the Federal Confidentiality of Alcohol and Drug Abuse Patient Records regulations: The Federal rules restrict any use of the information to criminally investigate or prosecute any alcohol or drug abuse patient.[facility] the event this information is protected by the Federal Confidentiality of Alcohol and Drug Abuse Patient Records regulations: The Federal rules restrict any use of the information to criminally investigate or prosecute any alcohol or drug abuse patient.[facility] the event this information is protected by the Federal Confidentiality of Alcohol and Drug Abuse Patient Records regulations: The Federal rules restrict any use of the information to criminally investigate or prosecute any alcohol or drug abuse patient.[facility] Reason for Visit (unrecogniz ed section and content) Reason Comments Diarrhea diarrhea, lightheade d, dizzy and fever x 4 days Reason Onset Date Comments Asthma 03/19/2022 Breathe Well Fol low up Reason Comments Diarrhea nausea, constipation , indigestion x3 weeks intermittent Reason Comments Bowel Issues questioning IBS or b acteria overgrowth Reason Comments Results Reason Comments Establish Care Reason Comments Fever R ear muffled, heada sylvia, R side of throat pain nausea, pain in neck swelling in lymph nodes X 3 day Reason Comments Patient Update Reason Comments Ear Problem bilateral ear pressu re, dizziness with fever x 1 day Reason Comments Ear Pain right, seen yesterda y given amoxicillin, started draining today Reason Comments Medication Request Reason Comments Ear Infection Reason Comments ER F/U [facility] 08/15 Reason Comments Imm/Inj Reason Comments Internal Referrals/resources ENT Reason Comments Appointment Care Teams (unrecognized sec tion and content) Locker Room Clerk Relationship Specialty Start Date End Date Gurjit Vega MD [address] [place], [place] [address] PCP - General 09/27/04 Locker Room Clerk Relationship Specialty Start Date End Date Gurjit Vega MD [address] [place], [place] [address] PCP - General 09/27/04 Locker Room Clerk Relationship Specialty Start Date End Date Gurjit Vega MD [address] [place], [place] [address] PCP - General 09/27/04 Locker Room Clerk Relationship Specialty Start Date End Date Gurjit Vega MD [address] [place], [place] [id number] PCP - General 09/27/04 Locker Room Clerk Relationship Specialty Start Date End Date Gurjit Vega MD [address] [place] [place] [address] PCP - General 09/27/04 Locker Room Clerk Relationship Specialty Start Date End Date Gurjit Vega MD [address] [facility] [place] [address] PCP - General 09/27/04 Locker Room Clerk Relationship Specialty Start Date End Date Daily Garsia MD [address] [facility] [place] [address] PCP - General Family Medicine 07/20/24 Podlogar, Fatuma, LAUNDRY ROUTEMAN.[employer] [address] [place] [place] [address] Family Medicine 07/20/24 Locker Room Clerk Relationship Specialty Start Date End Date Daily Garsia MD [address] [facility] [place] [address] PCP - General Family Medicine 07/20/24 Podlogar, Fatuma, LAUNDRY ROUTEMAN.[employer]EDER [address] [place] [place] [address] Family Medicine 07/20/24 Locker Room 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 Relationship Specialty Start Date End Date Daily Garsia MD [address] [place] [address] PCP - General Family Medicine 07/20/24 Podlogar, Fatuma, LAUNDRY ROUTEMAN.[employer]EDER [address] [place] [place] [address] Family Medicine 07/20/24 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 Relationship Specialty Start Date End Date Daily Garsia MD [address] [facility] [place] [address] PCP - General Family Medicine 07/20/24 PodlogarFatuma APRN.[employer] [address] [facility] [place] [address] Family Medicine 07/20/24 Locker 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 Clerk Relationship Specialty Start Date End Date Daily Garsia MD [address] [facility] [place] [address] PCP - General Family Medicine 07/20/24 Podlogar, MALACHI Burris.[employer]EDER [address] [place] [place] [address] Family Medicine 07/20/24 Locker Room Clerk Relationship Specialty Start Date End Date Daily Garsia MD [address] [facility] [place] [address] PCP - General Family Medicine 07/20/24 Podlogar, MALACHI Burris.[employer]EDER [address] [place] [place] [address] Family Medicine 07/20/24 Locker Room Clerk Relationship Specialty Start Date End Date Daily Garsia MD [address] [facility] [place] [address] PCP - General Family Medicine 07/20/24 PodlogarFatuma APRN.[employer] [address] [facility] [place] [address] Family Medicine 07/20/24 PodlogarFatuma APRN.[employer]EDER [address] [facility] [place] [address] [facility] Locker Room Clerk Relationship Specialty Start Date End Date Daily Garsia MD [address] [place] [address] PCP - General Family Medicine 07/20/24 PodlogarFatuma APRN.[employer]ER [address] [place] [place] [address] Family Medicine 07/20/24 Podlogar, MALACHI Burris.[employer] FEEDER [address] [place] [address] [facility] 08/29/24 Locker Room Clerk Relationship Specialty Start Date End Date Daily Garsia MD [address] [place] [address] PCP - General Family Medicine 07/20/24 PodlogarFatuma APRN.[employer]ER [address] [place] [address] Family Medicine 07/20/24 PodlogarFatuma APRN.[employer] [address] [place] [address] [facility] 08/29/24 INFORMATION SOURCE (unrecogn ized section and content) DATE CREATED AUTHOR 09/09/2024 [facility] DATE CREATED AUTHOR AUTHOR'S EUNICE SIMS 09/16/2024 [place] FOR RECORDS PERTAINING TO PATIENTS WHO ARE [...] BE BASED ON THE PRIMARY CLINICAL RECORDS. [facility]. provides no warranty or guarantee of the accuracy or completeness of information in this document.
== END 2025-04-03 21:36 | disposition home or self-care (01) ==
PROVIDERS: Emergency Provider Emergency Medicine; PCP Family Medicine; Visit Provider Emergency Medicine
DX: S60.221A Contusion of right hand, initial encounter (principal); S60.222A Contusion of left hand, initial encounter; J45.909 Unspecified asthma, uncomplicated; Y04.8XXA Assault by other bodily force, initial encounter; Z63.6 Dependent relative needing care at home
CPT/HCPCS: 73130; 99282